=== PATIENT | female | born 1990 | race Caucasian/White ===

== ENCOUNTER 2018-06-18 08:10 | Outpatient (CLI) | payer MEDICAID, SELFPAY ==
[2018-06-18 08:41] LABS: HCT 37.1 % (36.0-46.0); HGB 12.5 g/dL (12.0-15.5); Mean Corp. HGB Concentration 33.7 g/dL (32.0-36.0); Mean Corpuscular Volume 92.1 fL (80-95); Mean Platelet Volume 10.3 fL (8.0-11.0); Platelet Count 238 x1000/uL (130-400); RBC 4.03 m/cumm (4.00-5.20); RBC Distribution Width 13.3 % (11.7-14.6); White Blood Cell Count 7.55 k/cumm (4.4-10.8)
[2018-06-18 08:51] LABS: Glucose,1 Hr (Glucola) 94 mg/dL (80-140)
== END 2018-06-18 08:30 ==
PROVIDERS: PCP Family Medicine; Visit Provider Midwife
DX: Z34.83 Encounter for supervision of other normal pregnancy, third trimester (principal); Z3A.28 28 weeks gestation of pregnancy
CPT/HCPCS: 36415; 82950; 85027

== ENCOUNTER 2018-08-14 11:17 | Outpatient (REF) | payer MEDICAID, SELFPAY | END 2018-08-14 11:37 | LOC: LBN 11:17 | PROVIDERS: PCP Family Medicine; Visit Provider Advanced Practice Midwife | DX: Z34.93 Encounter for supervision of normal pregnancy, unspecified, third trimester (principal); Z36.85 Encounter for antenatal screening for Streptococcus B | CPT/HCPCS: 87081 ==

== ENCOUNTER 2018-08-21 10:11 | Outpatient (CLI) | payer MEDICAID, SELFPAY | END 2018-08-21 11:20 | disposition home or self-care (01) | PROVIDERS: PCP Family Medicine; Visit Provider Advanced Practice Midwife | DX: O36.8130 Decreased fetal movements, third trimester, not applicable or unspecified (principal); Z3A.37 37 weeks gestation of pregnancy | CPT/HCPCS: 59025 ==

== ENCOUNTER 2018-09-02 19:34 | Outpatient (CLI) | payer MEDICAID, SELFPAY | END 2018-09-02 20:25 | disposition home or self-care (01) | LOC: BCD 19:37 | PROVIDERS: PCP Family Medicine; Visit Provider Nurse Practitioner | DX: O36.8130 Decreased fetal movements, third trimester, not applicable or unspecified (principal); Z3A.38 38 weeks gestation of pregnancy | CPT/HCPCS: 59025 ==

== ENCOUNTER 2018-09-11 23:07 | Inpatient (IN) | payer MEDICAID, SELFPAY ==
[2018-09-12 00:35] LABS: HCT 42.6 % (36.0-46.0); HGB 14.2 g/dL (12.0-15.5); Mean Corp. HGB Concentration 33.3 g/dL (32.0-36.0); Mean Corpuscular Hemoglobin 28.8 pg (27.0-33.0); Mean Corpuscular Volume 86.4 fL (80-95); Mean Platelet Volume 11.4 fL (8.0-11.0); Platelet Count 165 x1000/uL (130-400); RBC 4.93 m/cumm (4.00-5.20); RBC Distribution Width 16.6 % (11.7-14.6); White Blood Cell Count 9.48 k/cumm (4.4-10.8)
[2018-09-12] MEDS: Ondansetron 4 MG/2 ML VIAL 8 MG IVP (01:21)
[2018-09-12] MEDS: fentaNYL 100 MCG/2 ML VIAL 50 MCG IVP ×3 (03:10→06:24)
[2018-09-12] MEDS: Normal Saline Flush 10 ML SYR IVP ×4 (03:11→06:24)
[2018-09-12] MEDS: Lactated Ringers 500 ML IV (06:06)
[2018-09-12] MEDS: Hamamelis Leaf/Glycerin 100 EACH BOX PR (09:01)
[2018-09-12] MEDS: Docusate Sodium 100 MG CAP PO (09:01)
[2018-09-12] MEDS: Ibuprofen 600 MG TAB PO ×3 (09:18→23:25)
[2018-09-12] MEDS: Acetaminophen 325 MG TAB 650 MG PO ×3 (09:18→23:25)
[2018-09-13 07:05] LABS: HCT 37.5 % (36.0-46.0); HGB 12.1 g/dL (12.0-15.5); Mean Corp. HGB Concentration 32.3 g/dL (32.0-36.0); Mean Corpuscular Hemoglobin 28.3 pg (27.0-33.0); Mean Corpuscular Volume 87.6 fL (80-95); Mean Platelet Volume 11.7 fL (8.0-11.0); Platelet Count 169 x1000/uL (130-400); RBC 4.28 m/cumm (4.00-5.20); RBC Distribution Width 17.1 % (11.7-14.6); White Blood Cell Count 11.63 k/cumm (4.4-10.8)
== END 2018-09-13 12:35 | disposition home or self-care (01) | DRG 807 ==
PROVIDERS: Admitting Provider Advanced Practice Midwife; PCP Family Medicine; Visit Provider Advanced Practice Midwife
DX: O48.0 Post-term pregnancy (principal); Z37.0 Single live birth; Z3A.40 40 weeks gestation of pregnancy; O99.824 Streptococcus B carrier state complicating childbirth; O75.89 Other specified complications of labor and delivery; R11.10 Vomiting, unspecified; O77.0 Labor and delivery complicated by meconium in amniotic fluid
CPT/HCPCS: 36415; 85027; 86850; 86900; 86901; J2405; J2540; J3010; J3490

== ENCOUNTER 2018-11-13 10:50 | Outpatient (CLI) | payer MEDICAID, SELFPAY ==
[2018-11-13 11:28] LABS: HCT 40.3 % (36.0-46.0); HGB 13.4 g/dL (12.0-15.5); Mean Corp. HGB Concentration 33.3 g/dL (32.0-36.0); Mean Corpuscular Hemoglobin 28.6 pg (27.0-33.0); Mean Corpuscular Volume 85.9 fL (80-95); Mean Platelet Volume 10.1 fL (8.0-11.0); Platelet Count 315 x1000/uL (130-400); RBC 4.69 m/cumm (4.00-5.20); RBC Distribution Width 16.5 % (11.7-14.6); White Blood Cell Count 5.35 k/cumm (4.4-10.8)
[2018-11-13 12:04] LABS: BUN 12 mg/dL (7-18); CREATININE 0.64 mg/dL (0.55-1.02); Calcium 8.7 mg/dL (8.5-10.1); Chloride 106 mmol/L (98-107); Glucose 79 mg/dL (70-100); Potassium 4.3 mmol/L (3.5-5.1); Sodium 142 mmol/L (136-145)
[2018-11-13 12:35] LABS: HCG Qual (Serum) Negative
== END 2018-11-13 11:10 ==
PROVIDERS: PCP Family Medicine; Visit Provider Surgery
DX: Z30.2 Encounter for sterilization (principal); Z01.818 Encounter for other preprocedural examination
CPT/HCPCS: 36415; 80048; 85027; 86850; 86900; 86901; 84703

== ENCOUNTER 2018-11-21 06:04 | Day surgery (SDC) | payer MEDICAID, SELFPAY ==
[2018-11-21 06:16] VITALS: BP 107/69; PULSE 69; RESP 18; TEMP 35.6; O2SAT 96
[2018-11-21] MEDS: Lactated Ringers 1,000 ML 125 ML IV ×2 (06:45→08:27)
[2018-11-21] MEDS: Bupivacaine 0.25% Pres-Free 30 ML VIAL (07:50)
--- NOTE | 2018-11-21 08:04 | FALL_PTH ---
PATIENT: Jenna Smallwood LOC: [facility] U#:[id number] AGE/SX: 28/F ROOM: RE11/21/[address]: Cynthia Woodruff : 1990 BED: DIS: 11/21/2018 SPEC #: [id number] RECD: 11/21/18 12:46 STATUS: CHANDNI MIRANDA #: [id number] RUDY: 11/21/18 08:[address]: Cynthia Woodruff DEPT: Surgical Specimen RECD BY: Mariel Solano ENTERED: 11/21/18 12:47 SP TYPE: Fall OTHR DR: Ariel Adkins Tissues: 1 - FALLOPIAN TUBE (STERILIZATION) 2 - FALLOPIAN TUBE (STERILIZATION) Procedures: GROSS AND MICRO LEVEL 2 Comments: [id number]
[2018-11-21 08:33] VITALS: BP 112/81; PULSE 64; RESP 22; TEMP 36.6; O2SAT 96
[2018-11-21 08:38] VITALS: BP 114/75; PULSE 69; RESP 20; TEMP 36.6; O2SAT 96
[2018-11-21 08:43] VITALS: BP 102/67; PULSE 58; RESP 22; TEMP 36.6; O2SAT 97
[2018-11-21 08:57] VITALS: BP 117/72; PULSE 67; RESP 17; TEMP 36.6; O2SAT 96
--- NOTE | 2018-11-21 09:15 | W.PM.DSUDISC ---
Discharge Plan Disposition Patient Disposition: HOME Condition: Good Discharge Details Attending Provider: Cynthia Woodruff Primary Care Provider: Ariel Adkins Home Meds and New Rx's Prescriptions: No Action oxycodone-acetaminophen [Percocet] 5-325 mg tablet 1 tab PO Q6H MDD 4 PRN (Reason: pain) Qty: 5 RF: 0 with DHA-Folic Acid 1 EACH tablet,chewable 2 ea PO DAILY RF: 0 acetaminophen [Mapap Extra Strength] 500 MG tablet 1,000 mg PO PRN RF: 0 albuterol sulfate [ProAir HFA] 200 PUFF HFA aerosol inhaler 2 puff Inhalation Q6H PRN (Reason: Wheezing) Qty: 1 RF: 0 Discharge Instructions Stand Alone Forms: DSU Post Gynecology Surgery, DSU Post op Instructions Activity:: Activity as Tolerated Diet:: As Tolerated Discharge Orders Discharge Orders: Discharge Order (Routine); Ordered 11/21/18 Ordered By: Cynthia Woodruff Discharge Data Discharge Date/Time-TO BE ENTERED AT DEPARTURE: 11/21/18 10:19 DS: Diagnosis Discharge Diagnosis (1) Encounter for sterilization: Status: Acute
[2018-11-21 09:33] VITALS: BP 105/65; PULSE 70; RESP 16; TEMP 36; O2SAT 96
--- NOTE | 2018-11-25 18:46 | W.PM.OP ---
Date of service: 11/25/18 Time of Service: 18:46 Operative Note DATE OF PROCEDURE: 11/21/18 PRE-OP DIAGNOSIS: Multiparity desires permanent sterilization POST-OP DIAGNOSIS: same PROCEDURE: Laparoscopic bilateral salpingectomy SURGEON: Cynthia Woodruff ASSISTING SURGEON: Trevor Chamberlain ANESTHESIA: GETA ESTIMATED BLOOD LOSS: 0 PATHOLOGY: other (Bilateral fallopian tubes to pathology) COMPLICATIONS: None Patient was transported to: PACU Patient's condition: stable Indications: 28-year-old female who was counseled during her regarding contraceptive options. She declined all other methods other than permanent sterilization. Findings: Normal pelvis fallopian tubes normal appendix normal skin of upper abdomen Procedure Description: Patient was taken to the operating room where she was placed in the dorsal supine position and general endotracheal anesthesia was administered without difficulty. She was then prepped and draped in the usual sterile fashion. SCDs were in place and no antibiotics were administered. 2 cc of quarter percent Marcaine without epinephrine were used to infiltrate the umbilicus. A vertical skin incision was made with a scalpel at the umbilicus. A [place] clamp was used to grasp the umbilical ligament and tent it up. Another [place] was used to grasp the more caudal portion of the umbilical ligament and the umbilical ligament was transected with curved Jackson scissors and the abdomen entered bluntly. The rectus fascia was held with 2-0 Vicryl sutures which were used to secure the Williamson trocar and sleeve which were placed through the umbilical incision. Pneumoperitoneum was achieved using carbon dioxide gas. Patient was placed in Trendelenburg and under direct visualization 2 5 mm ports were placed in the right and left lower quadrants under direct visualization. The sites were infiltrated with quarter percent Marcaine before the incision was made with a scalpel. The bowels were swept away from the pelvis and the right fallopian tube was grasped followed out to its fimbriated end and the mesosalpinx was then sequentially clamped cauterized and transected to the level of the right uterine cornua. The fallopian tube at the right uterine cornua was then clamped cauterized and transected and the right fallopian tube was delivered through the 10 mm port and passed off of the operative field. A similar technique was carried out on the contralateral fallopian tube. The left fallopian tube was successfully transected from its attachments and delivered through the 10 mm port. Both pedicles were hemostatic at the completion of the procedure. Under direct visualization the 5 mm lower ports were removed the pneumoperitoneum reduced and the Williamson removed. Rectus fascia was reapproximated with 2 more interrupted sutures of 0 Vicryl for a excellent closure of the rectus fascia. The skin of all port sites was reapproximated with a subcuticular closure of 4-0 Monocryl followed by skin glue. All sponge lap needle counts correct x2 patient was awakened extubated and transported to recovery area in stable condition.
--- NOTE | 2018-11-25 18:55 | ROE_ITS ---
Date of service: 11/25/18 Time of Service: 18:46 Operative Note DATE OF PROCEDURE: 11/21/18 PRE-OP DIAGNOSIS: Multiparity desires permanent sterilization POST-OP DIAGNOSIS: same PROCEDURE: Laparoscopic bilateral salpingectomy SURGEON: Cynthia Woodruff ASSISTING SURGEON: Trevor Chamberlain ANESTHESIA: GETA ESTIMATED BLOOD LOSS: 0 PATHOLOGY: other (Bilateral fallopian tubes to pathology) COMPLICATIONS: None Patient was transported to: PACU Patient's condition: stable Indications: 28-year-old female who was counseled during her regarding contraceptive options. She declined all other methods other than permanent sterilization. Findings: Normal pelvis fallopian tubes normal appendix normal skin of upper abdomen Procedure Description: Patient was taken to the operating room where she was placed in the dorsal supine position and general endotracheal anesthesia was adm inistered without difficulty. She was then prepped and draped in the usual sterile fashion. SCDs were in place and no antibiotics were administered. 2 cc of quarter percent Marcaine without epinephrine were used to infiltrate the umbilicus. A vertical skin incision was made with a scalpel at the umbilicus. A [place] clamp was used to grasp the umbilical ligament and tent it up. Another [place] was used to grasp the more caudal portion of the umbilical ligament and the umbilical ligament was transected with curved Jackson scissors and the abdomen entered bluntly. The rectus fascia was held with 2-0 Vicryl sutures which were used to secure the Williamson trocar and sleeve which were placed through the umbilical incision. Pneumoperitoneum was achieved using carbon dioxide gas. Patient was placed in Trendelenburg and under direct visualization 2 5 mm ports were placed in the right and left lower quadrants under direct visualization. The sites were infiltrated with quarter percent Marcaine before the incision was made with a scalpel. The bowels were swept away from the pelvis and the right fallopian tube was grasped followed out to its fimbriated end and the mesosalpinx was then sequent ially clamped cauterized and transected to the level of the right uterine cornua. The fallopian tube at the right uterine cornua was then clamped cauterized and transected and the right fallopian tube was delivered through the 10 mm port and passed off of the operative field. A similar technique was carried out on the contralateral fallopian tube. The left fallopian tube was successfully transected from its attachments and delivered through the 10 mm port. Both pedicles were hemostatic at the completion of the procedure. Under direct visualization the 5 mm lower ports were removed the pneumoperitoneum reduced and the Williamson removed. Rectus fascia was reapproximated with 2 more interrupted sutures of 0 Vicryl for a excellent closure of the rectus fascia. The skin of all port sites was reapproximated with a subcuticular closure of 4-0 Monocryl followed by skin glue. All sponge lap needle counts correct x2 patient was awakened extubated and transported to recovery area in stable condition.
== END 2018-11-21 10:19 | disposition home or self-care (01) ==
PROVIDERS: PCP Family Medicine; Visit Provider Obstetrics & Gynecology Gynecology
PROC: (CPT 58661; principal; 2018-11-21 07:30)
DX: Z30.2 Encounter for sterilization (principal); N94.89 Other specified conditions associated with female genital organs and menstrual cycle
CPT/HCPCS: 58661; 81025; 86850; 86900; 86901; 88302; J1100; J1885; J2250; J2405; J3010

== ENCOUNTER 2022-11-25 15:14 | Outpatient (REF) | payer MEDICAID, SELFPAY ==
--- NOTE | 2022-11-25 10:30 | PAPFT_PTH ---
PATIENT: Jenna Smallwood [facility] U#:[id number] AGE/SX: 32/F ROOM: RE11/25/[address]: GENO VELÁQSUEZ : 1990 BED: DIS: 11/25/2022 SPEC #: [id number] RECD: 11/25/22 18:46 STATUS: CHANDNI REQ #: [id number] RUDY: 11/25/22 10:[address]: Geno Velásquez DEPT: [facility] Cytology RECD BY: Mariel Solano ENTERED: 11/25/22 18:46 SP TYPE: PAPFT OTHR DR: Abby Birch Tissues: 1 - CX/ENDOCX FOR PAP SMEARS Procedures: PAP THIN PREP/UVM Screening HPV DNA PROBE Comments: [id number] (CHLAMYDIA/GC)
[2022-11-25 18:24] LABS: Abs Immature Grans 0.01 10^3/uL (0.0-0.06); Absolute Basophil Count 0.03 10^3/uL (0.0-0.2); Absolute Eosinophil Count 0.08 10^3/uL (0.0-0.7); Absolute Lymphocyte Count 1.82 10^3/uL (1.2-3.4); Absolute Monocyte Count 0.38 10^3/uL (0.1-0.8); Basophils % 0.5; Eosinophils % 1.4; HCT 41.9 % (36.0-46.0); HGB 13.5 g/dL (11.2-15.7); Immature Grans % 0.2; Lymphocytes % 30.7; MCH 29.2 pg (27.0-33.0); MCHC 32.2 % (32.0-36.0); MCV 91 fL (80-95); MPV 10.5 fL (8.0-11.0); Monocytes % 6.4; Neutrophils % 60.8; Platelet Count 351 10^3/uL (130-400); RBC 4.63 10^6/uL (3.93-5.22); RDW 13.2 % (11.7-14.6); RDW-SD 44.4 fL; WBC 5.92 10^3/uL (4.4-10.8)
[2022-11-25 18:30] LABS: Iron 70 ug/dL (50-170); Total Iron Binding Capacity 293 ug/dL (250-450); Transferrin Sat 24 % (15-50)
[2022-11-25 18:33] LABS: ALT 28 U/L (14-59); AST 20 U/L (15-37); Albumin 3.8 g/dL (3.4-5.0); Alkaline Phosphatase 76 U/L (46-116); Anion Gap 7.2 mmol/L (3-11); BUN 14 mg/dL (7-18); Bilirubin, Total 0.2 mg/dL (0.2-1.0); CO2 28.8 mmol/L (21.0-32.0); CREATININE 0.5 mg/dL (0.55-1.02); Calcium 9.4 mg/dL (8.5-10.1); Chloride 106 mmol/L (98-107); Estimated GFR 126.93 (mL/min/1.73m2); Glucose 83 mg/dL (74-106); Potassium 4.3 mmol/L (3.5-5.1); Sodium 142 mmol/L (136-145)
[2022-11-25 18:43] LABS: Hemoglobin A1C 4.9 % (<5.7)
[2022-11-28 17:11] LABS: Chlamydia Result Negative (Negative); GC Result Negative (Negative)
== END 2022-11-25 15:15 | disposition home or self-care (01) ==
LOC: NCHCN 15:14
PROVIDERS: PCP Nurse Practitioner; Visit Provider Nurse Practitioner Family
DX: R53.83 Other fatigue (principal); Z13.1 Encounter for screening for diabetes mellitus; N89.8 Other specified noninflammatory disorders of vagina; Z12.4 Encounter for screening for malignant neoplasm of cervix; Z11.3 Encounter for screening for infections with a predominantly sexual mode of transmission; Z11.51 Encounter for screening for human papillomavirus (HPV); Z00.00 Encounter for general adult medical examination without abnormal findings; R79.89 Other specified abnormal findings of blood chemistry
CPT/HCPCS: 80053; 87491; 87591; 88142; 83036; 83540; 83550; 85025; 87480; 87510; 87624; 87660

== ENCOUNTER 2023-05-18 18:14 | Outpatient (REF) | payer MEDICAID, SELFPAY ==
[2023-05-20 14:46] LABS: Chlamydia Result Negative (Negative); GC Result Negative (Negative)
== END 2023-05-18 18:15 | disposition home or self-care (01) ==
LOC: NCHCN 18:14
PROVIDERS: PCP Nurse Practitioner; Visit Provider Nurse Practitioner Family
DX: N89.8 Other specified noninflammatory disorders of vagina (principal); A59.01 Trichomonal vulvovaginitis
CPT/HCPCS: 87491; 87591; 87480; 87510; 87660

== ENCOUNTER 2024-06-11 22:27 | Outpatient (REF) | payer MEDICAID, SELFPAY ==
[2024-06-11 19:53] LABS: Abs Immature Grans 0.01 10^3/uL (0.0-0.06); Absolute Basophil Count 0.01 10^3/uL (0.0-0.2); Absolute Eosinophil Count 0.07 10^3/uL (0.0-0.7); Absolute Lymphocyte Count 0.99 10^3/uL (1.2-3.4); Absolute Monocyte Count 0.47 10^3/uL (0.1-0.8); Absolute Neutrophil Count 2.95 10^3/uL (1.2-6.7); Basophils % 0.2 %; Eosinophils % 1.6 %; HCT 42.2 % (36.0-46.0); HGB 14.1 g/dL (11.2-15.7); Immature Grans % 0.2 %; MCH 29.8 pg (27.0-33.0); MCHC 33.4 % (32.0-36.0); MCV 89 fL (80-95); MPV 10.9 fL (8.0-11.0); Monocytes % 10.4 %; Neutrophils % 65.6 %; Platelet Count 284 10^3/uL (130-400); RBC 4.73 10^6/uL (3.93-5.22); RDW 12.6 % (11.7-14.6); RDW-SD 41.5 fL
[2024-06-11 20:30] LABS: Iron 19 ug/dL (50-170); Total Iron Binding Capacity 302 ug/dL (250-450); Transferrin Sat 6 % (15-50)
[2024-06-11 20:41] LABS: ALT 28 U/L (14-59); AST 24 U/L (15-37); Albumin 3.8 g/dL (3.4-5.0); Alkaline Phosphatase 67 U/L (46-116); Anion Gap 11.7 mmol/L (3-11); BUN 8 mg/dL (7-18); Bilirubin, Total 0.47 mg/dL (0.2-1.0); CO2 25.3 mmol/L (21.0-32.0); CREATININE 0.8 mg/dL (0.55-1.02); Calcium 8.7 mg/dL (8.5-10.1); Chloride 102 mmol/L (98-107); Estimated GFR 98.48 (mL/min/1.73m2); Glucose 90 mg/dL (74-106); Potassium 3.6 mmol/L (3.5-5.1); Sodium 139 mmol/L (136-145); TSH (W/Ref FT4) 1.46 uIU/mL (0.36-3.74); Total Protein 7.4 g/dL (6.4-8.2); Vitamin B12 500 pg/mL (193-986); Vitamin D 25 Total 17.4 ng/mL (30-100)
[2024-06-11 21:40] LABS: Hemoglobin A1C 5.1 % (<5.7)
--- OUTSIDE RECORDS SUMMARY | 2024-06-11 22:30 | XMS_ITS | Encounter Summary ---
Author Organization [facility] Address [address] [place] [address] Care Team Providers Care Metal Bonder Name Role Phone Pablo Solorio MD Primary Care Provider Meka harrington Encounter Details Date Type Department Care Team (Latest Contact Info) Description 11/21/2018 17:12 EST - 11/21/2018 23:59 EST Hospital Encounter [address] [address] Unknown, Provider, Discharge Disposition: Home or Self Care Social History Tobacco Use Types Packs/Day Years Used Date Smoking Tobacco: Never Assessed Sex and Gender Information Value Date Recorded Sex Assigned at Not on file Gender Identity Not on file Sexual Orientation Not on file documented as of this encounter Functional Status Cognitive Status Response Date of Assessm ent Because of a physical, menta l, or emotional condition, do you have serious difficulty concentrating, remembering, or making decisions? (5 years old or older) Yes 12/01/2010 documented as of this encounter Medications at Time of Discharge Medication Sig Dispensed Refills Start Date End Date acetaminophen (TYLENOL) 650 mg tablet Take 1 Tablet by mouth every 6 hours. 12/05/2010 documented as of this encounter Discharge Disposition Disposition Code Departure Means Destination Home or Self Skilled Nursing documented in this encounter Plan of Treatment Upcoming Encounters Date Type Department Care Team (Late st Contact Info) Description 07/02/2024 11:15 EDT Office Visit [facility] Neurology - [address] [address] Maribel Giraldo MD 1 [facility], [address] [place] [phone] documented as of this encounter Visit Diagnoses Not on filedocumented in this encounter Care Teams Metal Bonder Relationship Specialty Start Date End Date Pablo Solorio MD PCP - General 02/13/09 12/23/22 documented as of this encounter
--- OUTSIDE RECORDS SUMMARY | 2024-06-11 22:30 | XMS_ITS | Encounter Summary ---
Author Organization [facility] Address [address] [place] [address] Care Team Providers Care Lab Intern Name Role Phone Pablo Solorio MD Primary Care Provider Geno Hutchins Primary Care Provider [phone] Encounter Details Date Type Department Care Team (Late Contact Info) Description 11/25/[address] [facility] Pathology & [facility] - [facility] [address] [place], [place] [address] Outr Resulting Lab, Provider Social History Tobacco Use Types Packs/Day Years Used Date Smoking Tobacco: Never Assessed Interpersonal Safety Answer Date Record ed Physically Hurt Never 04/26/2020 Verbally Threaten Not on file 04/26/2020 Sex and Gender Information Value Date Recorded [...] Yes 12/01/2010 documented as of this encounter Plan of Treatment Upcoming Encounters Date Type Department Care Team (Late Contact Info) Description 07/02/2024 11:[address] [facility] Neurology - S [address] [id number] Maribel Giraldo MD [address] [place] [address] [address] [place] [address] documented as of this encounter Procedures Procedure Name Priority Date/Time Associated Diagnosis Comments CHLAMYDIA/N. GONORRHOEAE AMPLIFIED NUCLEIC ACID, THINPREP Routine 11/25/2022 10:30 EST documented in this encounter Results * CHLAMYDIA/N. GONORRHOEAE AMPLIFIED RNA, THINPREP (11/25/2022 10:30 EST) Neisseria gonorrhoeae Result Negative Negative 11/28/2022 17:06 EST [facility] Chlamydia trachomatis Result Negative Negative 11/28/2022 17:06 EST [facility] Papanicolaou smear specimen (specimen) CERVIX UTERI STRUCTURE / Unknown 11/25/2022 10:30 EST 11/28/2022 9:55 EST Provider Outr Resulting Lab MICROBIOLOGY - GENERAL ORDERABLES Performing Organization Address City/State/[facility] Co de Phone Number [facility] [address] [place] [address] documented in this encounter Visit Diagnoses Not on filedocumented in this encounter Care Teams Lab Intern Relationship Specialty Start Date End Date Pablo Solorio MD PCP - General 02/13/09 12/23/22 Geno Velásquez FNP [facility] [address] [place] [address] PCP - General Family Medicine - Primary Care 12/24/22 documented as of this encounter
--- OUTSIDE RECORDS SUMMARY | 2024-06-11 22:30 | XMS_ITS | Encounter Summary ---
Author Organization [facility] Address [address] [place] [address] Care Team Providers Care Woodworking Bench Carpenter Name Role Phone Geno Velásquez ASPHALT SCREED OPERATOR Primary Care Provider [phone] Encounter Details Date Type Department Care Team (Late Contact Info) Description 05/19/2023 Lab Requisition [facility] Pathology & Laboratory Medicine - [facility] [address] [place], [place] [address] Outr Resulting Lab, Provider Social History Tobacco Use Types Packs/Day Years Used Date Smoking Tobacco: Never Smokeless Tobacco: Never Alcohol Use Standard Drinks/Week Comments Not Currently 0 (1 standard drink = 0.6 oz pur e alcohol) Interpersonal Safety Answer Date Record ed Physically [...] Upcoming Encounters Date Type Department Care Team ([facility] Contact Info) Description 07/02/2024 11:15 EDT Office Visit [facility] Neurology - S [address] [address] Maribel Giraldo MD 1 [facility], [address] [place] [address] documented as of this encounter Procedures Procedure Name Priority Date/Time Associated Diagnosis Comments CHLAMYDIA/N. GONORRHOEAE AMPLIFIED NUCLEIC ACID Routine 05/18/2023 15:05 EDT documented in this encounter Results * CHLAMYDIA/N. GONORRHOEAE AMPLIFIED RNA (05/18/2023 15:05 EDT) Neisseria gonorrhoeae Result Negative Negative 05/20/2023 14:41 EDT [facility] Chlamydia trachomatis Result Negative Negative 05/20/2023 14:41 EDT [facility] Urine URINE / Unknown 05/18/2023 1 5:05 EDT 05/19/2023 18:37 EDT Narrative [facility] - 05/20/2023 14:41 EDT A first catch urine specimen is acceptable for detection of Gonorrhea and Chlamydia, but might detect up to 10% fewer infections when compared with vaginal and endocervical swab samples. Provider Outr Resulting Lab MICROBIOLOGY - GENERAL ORDERABLES [facility] [address] [place] [address] documented in this encounter Visit Diagnoses Not on filedocumented in this encounter Care Teams Woodworking Bench Carpenter Relationship Specialty Start Date End Date Geno Velásquez FNP [address] [place] [phone] PCP - General Family Medicine - Primary Care 12/24/22 documented as of this encounter
--- OUTSIDE RECORDS SUMMARY | 2024-06-11 22:30 | XMS_ITS | Encounter Summary ---
Author Organization [facility] Address [address] [place] [address] Care Team Providers Care Hooker Operator Name Role Phone Geno Velásquez PRINT OPERATOR Primary Care Provider [phone] Encounter Details Date Type Department Care Team (Latest Contact Info) Description 04/11/2024 Specialty Pharmacy [facility] [address] [place] [phone] Ney Granados [facility] Refill Coordination Outreach for Headache Social History Tobacco Use Types Packs/Day Years [...] Info) Description 07/02/2024 11:15 EDT Office Visit [facility] Neurology - S [address] [phone] Maribel Giraldo MD [address] [place] [address] [address] [place] [phone] documented as of this encounter Visit Diagnoses Not on filedocumented in this encounter Care Teams Hooker Operator Relationship Specialty Start Date End Date Geno Velásquez FNP [address] [place] [phone] PCP - General Family Medicine - Primary Care 12/24/22 documented as of this encounter
--- OUTSIDE RECORDS SUMMARY | 2024-06-11 22:30 | XMS_ITS | Encounter Summary ---
Author Organization [facility] Address [address] [place] [address] Care Team Providers Care Home Health Lpn Name Role Phone Geno Velásquez RANDY Primary Care Provider Reason for Visit * Reason Onset Date Comments Prior Auth, Medication 09/05/2023 Emgality Encounter Details Date Type Department Care Team (Late st Contact Info) Description 09/05/2023 Telephone [facility] Neurology - S [address] [address] Maribel Giraldo MD [address] [place] [address], [address] [place] [address] Prior Auth, Medication (Emgality) Social History Tobacco Use Types Packs/Day Years [...] Yes 12/01/2010 documented as of this encounter Ordered Prescriptions Prescription Sig Dispensed Refills Start Date End Da te galcanezumab-GNLM (EMGALITY PEN) 120 mg/mL injection Inject 120 mg into the skin every 28 days. 3 mL 3 09/06/2023 galcanezumab-GNLM (EMGALITY PEN) 120 mg/mL injection Inject 240 mg into the skin Once for 1 dose. 2 mL 09/06/2023 documented in this encounter Miscellaneous Notes * Telephone Encounter - Memo Bianchi - 09/05/2023 0129 EST Prior Authorization Approval Medication: Emgality 240mg x1 then 120mg q28 days Insurance: VTM Insurance Type: [place] Medicaid Approval Dates: 09/05/2023 - 03/06/2024 Authorization Number: [id number] Benefits Information: Required Pharmacy: [facility] able to fill?: YES Additional Info/Other Notes: Prior Authorization Submission Process - Routine New Medication: Emgality 240mg x1 then 120mg q28 days Insurance: VTM Insurance Type: [place] Medicaid Date PA Request Received: 08/22/2023 [place] Submission Date: 09/06/2023 Faxed: [phone] Notes: Submitted by: Memo Phone: [phone] documented in this encounter Plan of Treatment Upcoming Encounters Date Type Department Care Team (Late st Contact Info) Description 07/02/2024 11:15 EDT Office Visit [facility] Neurology - S [address] [address] Maribel Giraldo MD [address] [place] [address], [address] [place] [address] documented as of this encounter Visit Diagnoses Not on filedocumented in this encounter Care Teams Home Health Lpn Relationship Specialty Start Date End Date Geno Velásquez FNP [address] [place] [phone] PCP - General Family Medicine - Primary Care 12/24/22 documented as of this encounter
--- OUTSIDE RECORDS SUMMARY | 2024-06-11 22:30 | XMS_ITS | Encounter Summary ---
Author Organization [facility] Address [address] [place] [address] Care Team Providers Care Grizzlyman Name Role Phone Geno Velásquez RANDY Primary Care Provider [phone] Encounter Details Date Type Department Care Team (Latest Contact Info) Description 12/25/2023 Specialty Pharmacy [facility] [address] [place] [phone] Marie Renteria RPH Refill Coordination Outreach for Headache, Clinical Follow-up (2x annually) for Headache Social History Tobacco Use Types [...] Info) Description 07/02/2024 11:15 EDT Office Visit [facility] Neurology - [address] [address] Maribel Giraldo MD 1 [facility], [address] [place] [phone] documented as of this encounter Visit Diagnoses Not on filedocumented in this encounter Care Teams Grizzlyman Relationship Specialty Start Date End Date Geno Velásquez FNP [address] [place] [phone] PCP - General Family Medicine - Primary Care 12/24/22 documented as of this encounter
--- OUTSIDE RECORDS SUMMARY | 2024-06-11 22:30 | XMS_ITS | Encounter Summary ---
Author Organization [facility] Address [address] [place] [address] Care Team Providers Care Bridge Construction Inspector Name Role Phone Geno Velásquez ASSOCIATE PROFESSOR OF FORESTRY Primary Care Provider [phone] Reason for Visit * Reason Comments Follow-up Encounter Details Date Type Department Care Team (Late st Contact Info) Description 01/15/2024 10:15 EDT Office Visit [facility] Neurology - S [address] [id number] Maribel Giraldo MD [address] [place] [address], Level 2 [place] [address] Intractable chronic migraine with aura and without status migrainosus (Primary Dx) Social History Tobacco Use Types Packs/Day Years [...] on file documented as of this encounter Last Filed Vital Signs Vital Sign Reading Time Taken Comments Blood Pressure 126/80 01/15/2024 1004 EDT Pulse 75 01/15/2024 1004 EDT Temperature - - Respiratory Rate 14 01/15/2024 1004 EDT Oxygen Saturation 100% 01/15/2024 1004 EDT Inhaled Oxygen Concentration - - Weight - - Height - - Body Mass Index - - documented in this encounter Functional Status Cognitive Status Response Date of Assessm ent Because of a physical, menta l, or emotional condition, do you have serious difficulty concentrating, remembering, or making decisions? (5 years old or older) Yes 12/01/2010 documented as of this encounter Progress Notes * Christi Davis MD - 01/15/2024 1015 EDT Neurology Follow-Up Note 01/15/24 HPI: Jenna Smallwood is a 33 y.o. left-hand dominant female seen today for follow-up of History of chiari I malformation s/p decompression in 2010. Chronic migraine with visual aura. Contributions from poor sleep and neck pain. Since the last visit: She is accompanied by her family today. She reports interval improvement in headache frequency and severity - has been using Emgality since end of August (last dose was on 01/01 = 5th dose). She has been experiencing incremental improvements from dose to dose - currently experiencing a headache twice per week (including all types of headaches, including migraine). The typical severity is around a4/10, which is improved from previously. She denies any side effects to Emgality, even no local site injection reactions. She rarely uses Relpax, which has been working much better than previous ones. She uses ibuprofen once per week for either headache or other pain. She has been working with PT, including stretching exercises, manipulations, and dry needling. She denies other health issues or medication changes. Headache frequency: Total # of headache days per month: 8 (26-27 at first visit) # of severe headache days per month: 1-2 (22 at first visit) Headache duration: hours to days (all day at first visit) Missed school or work: can't miss Current headache regimen: Abortive: eletriptan 40 mg Preventive: amitriptyline 50 mg nightly, Emgality every 28 days (5th dose on 01/01) Nonpharmacologic therapies: PT including stretching and dry needling Past/Failed therapies: Acute medications: ibuprofen, tylenol, tramadol (mild effective). Sumatriptan. Preventive medications: topamax pre-surgery (paresthesias), amitriptyline, Nonpharmacologic therapies: none Headache Presentation: She started having headaches at age 11. She was found to have a Chiari I malformation and had a suboccipital decompression in 2010. Her headaches improved for a time but started to recur about 5 years after surgery. They've been getting worse over time. She is now having headaches near daily, with only 3-4 days/month headache free. She has not been able to identify any triggers. There is no menstrual relationship. Headache is not provoked by coughing, straining, or valsalva and this does not provoke vision changes. There is no positional change inheadache. The pain location may be at the base of her skull, may be midline, bitemporal, or holocephalic. Sometimes the pain radiates down into her shoulder. Pain is sharp, stabbing, throbbing in character, reaches 10/10 at worst and 8/10 typically. Pain is worsened by activity and sometimes is better with rest. There is associated photophobia, phonophobia, nausea, cutaneous allodynia, and she feels like she has trouble opening jars. She has a visual aura of block spots in her vision, or half of her vision may be lost. This can last from 1 hour to all day. She has visual symptoms about 10-12 days/month. Headache contributors and health habits: Head trauma/concussion: None Back/neck/other pain: Neck pain as above Sinus/allergy: Environmental and seasonal allergies, asthma Dental/TMJ: None Psychological History: None Fluid intake: 64+ oz/day Caffeine intake: 8 oz/day Alcohol intake: None Exercise: 4 days/week, walking Sleep: 3-6 hours/night. Trouble sleeping due to pain. 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 Feels supported and safe at home Family headache history: father and siblings with migraine No past medical history on file. Patient Active Problem List Diagnosis Date Noted Migraine 09/06/2023 Active asthma Outpatient Medications Marked as Taking for the 01/15/24 encounter (Office Visit) with Maribel Giraldo MD Medication Sig acetaminophen (TYLENOL) 650 mg tablet Take 1 Tablet by mouth every 6 hours. albuterol 90 mcg/actuation inhaler INHALE ONE TO TWO PUFFS BY MOUTH EVERY 4 HOURS NEEDED amitriptyline (ELAVIL) 10 mg tablet Take 5 Tablets by mouth at bedtime. Start amitriptyline 5 mg (1/2 tab) nightly for one week. Increase to 10 mg (1 tab) nightly for one week, then increase by 10 mg(1 tab) weekly to target does 50 mg (5 tabs) nightly. eletriptan (RELPAX) 40 mg tablet At ONSET of severe headache. You may repeat a dose in 2 hours. Themaximum is 2 tabs or 80mg in 24 hours. galcanezumab-GNLM (EMGALITY PEN) 120 mg/mL injection Inject 240 mg into the skin Once for 1 dose. galcanezumab-GNLM (EMGALITY PEN) 120 mg/mL injection Inject 120 mg into the skin every 28 days. omeprazole (PRILOSEC) 20 mg capsule ondansetron (ZOFRAN) 4 mg tablet Take 1 Tablet by mouth 2 times daily. May take 2 tablets if needed. Allergies Allergen Reactions Aspirin Hives and Rash Banana Watermelon Hives Vomiting also, both watermelon and bananas Social History Socioeconomic History Marital status: Single Tobacco Use Smoking status: Never Smokeless tobacco: Never Substance and Sexual Activity Alcohol use: Not Currently Drug use: Not Currently ROS: Review of Systems: A 10 point ROS was negative except as noted above. Physical Exam: Patient Vitals for the past 24 hrs: BP Pulse Resp SpO2 01/15/24 1004 126/80 75 14 100 % Exam: She is alert and oriented. Speech is clear and fluent. Visual smith are intact. EOMMs are intact. Face is symmetric at rest upon activation. Tone is normal. There is no drift of the out-stretched arms or legs. Sensation is intact to light touch in all extremities. No dysmetria on finger to nose testing and heel to moura testing. Finger tapping is symmetrical. Gait is symmetric - able to stand on toes and heels. Imaging, Labs, Studies: Last head imaging was presurgical in 2010. MRI brain without contrast done 05/25/2023 at [facility] (no images available for my review): IMPRESSION 1. Post suboccipital decompression changes without crowding at the foramen magnum. Otherwise unremarkable exam. ASSESSMENT/PLAN: Assessment: History of chiari I malformation s/p decompression in 2010. Possible occipital neuralgia and possible cervical myofascial pain Chronic migraine with visual aura. Contributions from poor sleep. Plan: Acute treatment: - At onset of severe headache take Relpax (eletriptan) 40mg. May repeat a dose in 2 hours. The maximum is 2 tabs or 80mg in 24 hours. - Continue ondansetron (zofran) as needed for nausea Prevention: - Continue Emgality every 28 days as already being done (5th dose on 01/01) - Continue amitriptyline 50 mg nightly Health habits/nonpharmacologic treatments: - Continue PT - We might consider occipital nerve blocks and trigger point injections in the future if necessary Headache Calenders: - Encouraged Jenna to maintain a headache diary to be reviewed at the next follow-up visit. Follow up in 6 months or earlier if needed. Christi Davis MD Neurology Resident, PGY-3 Attending attestation: I saw and examined the patient, and discussed the assessment and plan, with Dr. Davis. I agree withthe note as above, edited as needed by me. Maribel Giraldo MD documented in this encounter Plan of Treatment Upcoming Encounters Date Type Department Care Team (Late st Contact Info) Description 07/02/2024 11:15 EDT Office Visit [facility] Neurology - S [address] [phone] Maribel Giraldo MD [address] [place] [address], [address] [place] [address] documented as of this encounter Visit Diagnoses Diagnosis Intractable chronic migraine with aura and without status migrainosus- Primary documented in this encounter Care Teams Bridge Construction Inspector Relationship Specialty Start Date End Date Geno Velásquez FNP Lauren ROWAN [address] [place] [phone] PCP - General Family Medicine - Primary Care 4/1/23 documented as of this encounter
--- OUTSIDE RECORDS SUMMARY | 2024-06-11 22:30 | XMS_ITS | Encounter Summary ---
Author Organization [facility] Address [address] [place] [address] Care Team Providers Care Fish Pitcher Name Role Phone Geno Velásquez RANDY Primary Care Provider [phone] Reason for Visit * Reason Onset Date Comments Prior Auth, Medication 02/16/2024 Emgality Encounter Details Date Type Department Care Team (Late st Contact Info) Description 02/16/2024 Telephone [facility] Neurology - S [address] [address] Maribel Giraldo MD [address] [place] [address], [address] [place] [address] Prior Auth, Medication (Emgality) Social [...] Yes 12/01/2010 documented as of this encounter Miscellaneous Notes * Telephone Encounter - Stephanie Waldron 02/16/2024 1622 EDT Prior Authorization Submission Process - Routine Re-Auth Medication: Emgality 120mg pen q28d [place] Insurance [place] Date [place] Request Received: 02/16/2024 [place] Submission Date: 02/16/2024 Faxed: [phone] Notes: Submitted by: Stephanie Hines Phone: [phone] [facility] Downtime Documentation Medication Name: Emgality Primary Payer[place] Secondary Payer: Payer Affected: Primary Payer Eligibility Verification Date Completion: 02/16/2024 Eligibility Verification Result: Eligiblity PDL/Formulary Review Completed on: 02/16/2024 PDL/Formulary Review Result: Meets Referral Entered:Yes documented in this encounter Plan of Treatment Upcoming Encounters Date Type Department Care Team (Late st Contact Info) Description 07/02/2024 11:15 EDT Office Visit [facility] Neurology - S [address] [address] Maribel Giraldo MD 1 [facility] 2 [place] [address] documented as of this encounter Visit Diagnoses Not on filedocumented in this encounter Care Teams Fish Pitcher Relationship Specialty Start Date End Date Geno Velásquez FNP Lauren ROWAN [address] [place] [phone] PCP - General Family Medicine - Primary Care 12/24/22 documented as of this encounter
--- OUTSIDE RECORDS SUMMARY | 2024-06-11 22:30 | XMS_ITS | Encounter Summary ---
Author Organization [facility] Address [address] [place] [address] Care Team Providers Care Instructional Aide Name Role Phone Jonathan Vazquez MD Primary Care Provider Meka harrington Encounter Details Date Type Department Care Team (Late Contact Info) Description 05/23/[address] [facility]- [facility] [phone] Radha Boucher, [facility] [address] [place] [phone] Social History Tobacco Use Types Packs/Day Years [...] Info) Description 07/02/2024 11:15 EDT Office Visit [facility] Neurology - [address] [phone] Maribel Giraldo MD [address] [place] [address], Level 2 [place] [phone] documented as of this encounter Procedures Procedure Name Priority Date/Time Associated Diagnosis Comments PAP TEST- RESULT ONLY Routine 05/23/2016 0:00 EDT documented in this encounter Results * PAP TEST- RESULT ONLY (05/23/2016 0:00 EDT) Pathology Report: CYTOPATHOLOGY REPORT Reports generated via electronic interface contain original data; however they are lacking the format of the original report. Caution should be taken when reading/interpreti ng unformatted reports. Name: ? JEAN CARLOS SMALLWOOD ? Accession #: ? [id number] : ? 1990 (Age: 26) ??F ?Collect Date: ? 05/23/2016 Location: ? [facility] ? Receive Date: ? 05/24/2016 Provider: ?RADHA BOUCHER [facility] Copy to: ?JONATHAN VAZQUEZ MD ? Specimen/Source: ?Pap Test, Cervix/Endocervix, ThinPrep Imaging System with manual evaluation Last Menstrual Period: ? Hormonal/Contracep tive Status: ? Intrauterine device: Mirena ? SPECIMEN ADEQUACY ? Satisfactory for Evaluation - transformation zone component present - scant squamous epithelial component secondary to excessive inflammation GENERAL CATEGORIZATION ? Negative for Intraepithelial Lesion or Malignancy INTERPRETATION ? Reactive cellular changes associated with inflammation present (includes repair). Shift in anna present suggestive of bacterial vaginosis. ? Document reviewed and electronically signed by: ? ISSAC SHANNON MD ? Report Date: ??05/27/2016 09:44 End of Report [facility] 05/23/2016 05/24/2016 Radha Boucher TUBE BENDING MACHINE OPERATOR PATHOLOGY ORDERABLES [facility] [address] [place] [address] documented in this encounter Visit Diagnoses Not on filedocumented in this encounter Care Teams Instructional Aide Relationship Specialty Start Date End Date Jonathan Vazquez MD PCP - General 02/13/09 12/23/22 documented as of this encounter
--- OUTSIDE RECORDS SUMMARY | 2024-06-11 22:30 | XMS_ITS | Encounter Summary ---
Author Organization [facility] Address [address] [place] [address] Care Team Providers Care Manager Placement Name Role Phone Geno Velásquez ANNEALER Primary Care Provider [phone] Encounter Details Date Type Department Care Team (Latest Contact Info) Description 02/14/2024 Specialty Pharmacy [facility] [address] [place] [phone] Ney Granados RPH Refill Coordination Outreach for Headache, Started Clinical Follow-up (2x annually) for Headache Social [...] as of this encounter Progress Notes * Robin Beal - 02/14/2024 1150 EDT Specialty Pharmacy Documentation Medication: Emgality [facility] Reason for Encounter: refill Notes: [facility]FT[facility] setting outreach closer to due date. Follow up date: 02/19 Follow up reason: refill * Ney Granados RPH - 02/14/2024 1450 EDT Patient Phone Call Patient reports an injection site reaction (2 inches by 4 inches, red, itchy, warm). I informed thepatient to use hydrocortisone cream 3-4x a day. Can use benadryl at night to help sleep if needed. Can also proactively apply hydrocortisone cream for next injection. Will reach out to us if doesn't resolve in a week or so. Ney Granados, [facility] 02/28/2024 documented in this encounter Plan of Treatment Upcoming Encounters Date Type Department Care Team (Late st Contact Info) Description 07/02/2024 11:15 EDT Office Visit [facility] Neurology - [address] [place] [address] [place] [address] Maribel Giraldo MD 1 [facility], Level [address] [place] [address] documented as of this encounter Visit Diagnoses Not on filedocumented in this encounter Care Teams Manager Placement Relationship Specialty Start Date End Date Geno Velásquez FNP Lauren ROWAN [address] [place] [phone] PCP - General Family Medicine - Primary Care 12/24/22 documented as of this encounter
--- OUTSIDE RECORDS SUMMARY | 2024-06-11 22:30 | XMS_ITS | Encounter Summary ---
Author Organization [facility] Address [address] [place] [address] Care Team Providers Care Kitchen Aide Name Role Phone Pablo Solorio MD Primary Care Provider Meka harrington Reason for Visit * Reason Comments Follow-up 3 Month FU; Chicari Decompression 12/01 Encounter Details Date Type Department Care Team (Latest Contact Info) Description 03/08/2011 11:00 EDT Office Visit [facility] Neurosurgery - Main [place] [address] [place] [address] Ye Dorsey MD [address] [place] [phone] Chiari malformation type I (CMS-HCC) (Primary Dx) Social History Tobacco Use Types Packs/Day Years Used Date Smoking Tobacco: Never Assessed Sex and Gender Information Value Date Recorded Sex Assigned at Not on file Gender Identity Not on file Sexual Orientation Not on file documented as of this encounter Last Filed Vital Signs Vital Sign Reading Time Taken Comments Blood Pressure 115/77 03/08/2011 1120 EDT Pulse 60 03/08/2011 1120 EDT Temperature - - Respiratory Rate 16 03/08/2011 1120 EDT Oxygen Saturation - - Inhaled Oxygen Concentration - - Weight 70.3 kg (155 lb) 03/08/2011 1120 EDT Height 165.1 cm (5' 5) 03/08/2011 1120 EDT Body Mass Index 25.79 03/08/2011 1120 EDT documented in this encounter Functional Status Cognitive Status Response Date of Assessm ent Because of a physical, menta l, or emotional condition, do you have serious difficulty concentrating, remembering, or making decisions? (5 years old or older) Yes 12/01/2010 documented as of this encounter Progress Notes * Abi Israel - 03/10/2011 1103 EDT * Ye Dorsey - 03/08/2011 1135 EDT This office note has been dictated. documented in this encounter Plan of Treatment Upcoming Encounters Date Type Department Care Team (Late st Contact Info) Description 07/02/2024 11:15 EDT Office Visit [facility] Neurology - S [address] [phone] Maribel Giraldo MD [address] [place] [address], [address] 2 [place] [phone] documented as of this encounter Visit Diagnoses Diagnosis Chiari malformation type I (HCC-CMS)- Primary Compression of brain * Evaluation - Ye Dorsey - 03/09/2011 1119 EDT DIVISION OF NEUROSURGERY NEW PATIENT EVALUATION - 03/08/2011 Pablo Solorio MD [address] [place], [place] [address] Dear Dr Solorio: Jenna Smallwood was here for further erythropoietin for her 3-month postoperative visit after a Chiari decompression. She has done very well. She has had no recurrence of headaches at all. She has had suboccipital headaches, as well as what she describes as migraines. She has had none of these since the day of surgery. Her wound has healed very well. I am pleased with Cl's progress. If she is to have return of symptoms, I would repeat an MRI at that time, but I would not repeat one for surveillance purposes only. Thank you for involving me in her care. Sincerely, Electronically Signed by Ye Dorsey MD 03/09/2011 11:17 Ye Dorsey MD Professor Of Exercise Science [facility] Division of Neurological Surgery - Ye Dorsey MD - [facility] Job ID: SM Doc ID: [id number] Ext Doc ID: [id number] cc: Pablo Solorio MD documented in this encounter Care Teams Kitchen Aide Relationship Specialty Start Date End Date Pablo Solorio MD PCP - General 02/13/09 12/23/22 documented as of this encounter
--- OUTSIDE RECORDS SUMMARY | 2024-06-11 22:30 | XMS_ITS | Encounter Summary ---
Author Organization [facility] Address [address] [place] [address] Care Team Providers Care Quality Analyst Name Role Phone Geno Velásquez PRINTED CIRCUIT BOARD PANELS TRIMMER Primary Care Provider [phone] Encounter Details Date Type Department Care Team (Latest Contact Info) Description 06/11/2024 Specialty Pharmacy [facility] [address] [place] [phone] Ney Granados [facility] Refill Coordination Outreach for Headache Social History [...] Info) Description 07/02/2024 11:15 EDT Office Visit [facility] Neurology - S [address] [address] Maribel Giraldo MD [address] [place] [address] [address] [place] [phone] documented as of this encounter Visit Diagnoses Not on filedocumented in this encounter Care Teams Quality Analyst Relationship Specialty Start Date End Date Geno Velásquez FNP [address] [place] [phone] PCP - General Family Medicine - Primary Care 12/24/22 documented as of this encounter
--- OUTSIDE RECORDS SUMMARY | 2024-06-11 22:30 | XMS_ITS | Encounter Summary ---
Author Organization [facility] Address [address] [place] [address] Care Team Providers Care Debone Supervisor Name Role Phone Geno Velásquez Primary Care Provider [phone] Reason for Referral * Radiology Services (Routine/Next Available) - Specialty Report Received Specialty Diagnoses / Procedures Referred By Patricia wheeler Referred To Contact Diagnoses Chiari I malformation ([facility]) Procedures MR HEAD WO CONTRAST CHG MRI BRAIN Maribel Giraldo MD [address] [place] [phone] Referral ID Status Reason Start Date Expiration Date V isits Requested Visits Authorized [id number] Specialty Report Received 05/09/2023 1 1 Reason for Visit * Reason Comments New Patient Visit Telemedicine Video Visit * Referral (Routine) - Receiving Office to Obtain Authorization Specialty Diagnoses / Procedures Referred By Patricia wheeler Referred To Contact Neurology Diagnoses Migraine, unspecified, not intractable, without status migrainosus Compression of brain ([facility]) Geno Velásquez FNP [address] [place] [phone] Park Warren DO [address] [phone] Referral ID Status Reason Start Date Expiration Date Visits Requested Visits Authorized [id number] Receiving Office to Obtain Authorization 1 1 Encounter Details Date Type Department Care Team (Late st Contact Info) Description 05/09/2023 9:00 EDT Telemedicine [facility] Neurology - [address] [id number] Maribel Giraldo MD [address] [place] [address], [address] [place] [address] Chiari I malformation ([facility]) (Primary Dx); Chronic migraine with aura Social History Tobacco Use Types Packs/Day Years Used Date Smoking Tobacco: Never Smokeless Tobacco: Never Tobacco Cessation:Counseling Given: No Alcohol Use Standard Drinks/Week Comments Not Currently [...] Yes 12/01/2010 documented as of this encounter Patient Instructions * Patient Instructions* Maribel Giraldo MD - 05/09/2023 9:00 EDT Further testing: - MR brain ordered today Abortive/as-needed therapy: - Start sumatriptan 50 mg - Take 1 tab at onset of headache, may repeat once in 2 hours if needed. May take 2 tabs if needed. Max of 200 mg in 24 hours and 8 treatment days per month. - Start zofran for nausea. Take 4-8 mg as needed up to twice a day Daily/Preventive therapy: - Start amitriptyline 5 mg (1/2 tab) nightly for one week. Increase to 10 mg (1 tab) nightly for one week, then increase by 10 mg (1 tab) weekly to target does 50 mg (5 tabs) nightly Health habits/nonpharmacologic treatments: - Consider acupuncture Headache diary: - Maintain a headache diary to be reviewed at the next follow-up visit. Track how many days you have headaches and how severe they are, as well as when you take medication for them. With questions or concerns call [phone] or send a message through the [employer] system. documented in this encounter Ordered Prescriptions Prescription Sig Dispensed Refills Start Date End Da te LORazepam (ATIVAN) 0.5 mg tablet Take 1 tablet 30 minutes prior to MRI. May repeat just prior to MRI if needed. 2 Tablet 05/09/2023 SUMAtriptan (IMITREX) 50 mg tablet Take 1 Tablet by mouth as needed for Migraine. May take 2. May repeat dose after 3 hours. Limit 200 mg per day, 2 days per week. 9 Tablet 5 05/09/2023 ondansetron (ZOFRAN) 4 mg tablet Take 1 Tablet by mouth 2 times daily. May take 2 tablets if needed. 30 Tablet 1 05/09/2023 amitriptyline (ELAVIL) 10 mg tablet Take 5 Tablets by mouth at bedtime. Start amitriptyline 5 mg (1/2 tab) nightly for one week. Increase to 10 mg (1 tab) nightly for one week, then increase by 10 mg (1 tab) weekly to target does 50 mg (5 tabs) nightly. 150 Tablet 3 05/09/2023 documented in this encounter Progress Notes * Maribel Giraldo MD - 05/09/2023 0900 EDT The concept of ???Telemedicine?? has been described to the patient.? Patient has been informed of the anticipated benefits and possible risks.? Patient understands the information provided regardingtelemedicine, has had the opportunity to ask questions about this information, and all questions have been answered to patient???s satisfaction. Patient consents for the use of telemedicine in his/her medical care and authorizes the transmission of any relevant medical information to providers and their staff involved in patient???s medical or mental health care. TELEMEDICINE VIDEO VISIT Today's visit was provided through telemedicine video conferencing: I have reviewed the appropriateness of using video technology with the patient with regards to today's visit. The location of the patient : Home Patient location state: Visit Location State: [place] The location of the provider: Home Office Provider location state: [place] The following people and their roles were present for today's visit: Appointment Provider: Maribel Giraldo MD NEUROLOGY NEW PATIENT NOTE 05/09/23 HPI: Jenna Smallwood is a 33 y.o. left-hand dominant female seen today at the request of RANDY Hernandez for evaluation of headache. I have reviewed the intake form for today's visit. Headache Presentation: She started having headaches at [...] has visual symptoms about 10-12 days/month. Headache frequency: Total # of headache days per month: 26-27 # of severe headache days per month: 22 # of headache free days per month: 3-4 Headache duration: all day Missed school or work: Can't miss Current headache regimen: Abortive: tramadol Preventive: none Nonpharmacologic therapies: None Past/Failed therapies: Acute medications: ibuprofen, tylenol, tramadol (mild effective). 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 Feels supported and safe at home Family headache history: father and siblings with migraine No past medical history on file. There are no problems to display for this patient. Outpatient Medications Marked as Taking for the 05/09/23 encounter (Telemedicine) with Maribel Giraldo MD Medication Sig ??? acetaminophen (TYLENOL) 650 mg tablet Take 1 Tablet by mouth every 6 hours. ??? albuterol 90 mcg/actuation inhaler INHALE ONE TO TWO PUFFS BY MOUTH EVERY 4 HOURS NEEDED ??? omeprazole (PRILOSEC) 20 mg capsule Allergies Allergen Reactions ??? Aspirin Hives and Rash ??? Banana ??? Watermelon Hives Vomiting also, both watermelon and bananas Social History Socioeconomic History ??? Marital status: Single Tobacco Use ??? Smoking status: Never ??? Smokeless tobacco: Never Substance and Sexual Activity ??? Alcohol use: Not Currently ??? Drug use: Not Currently ROS: A complete 16 point review of systems was completed on the new patient self assessment form. This form has been reviewed with the patient. Physical Exam: Vitas: Not taken for teleneuro visit Physical Exam: General: Patient of apparent stated age, well nourished, no acute distress HEENT: Normocephalic Resp: Breathing comfortably on room air Neurological exam: Mental status: Alert and oriented to person, place, date, time. Clear fluent language, no dysarthria. Normal fund of knowledge. Memory intact Cranial nerves: III, IV, : Extra ocular movements intact. No nystagmus is present. No ptosis or anisocoria is noted. VII: Face symmetric IX and X: Gag deferred. No dysarthria or dysphonia. Palate elevation symmetric XI: Shoulder shrug intact XII: Tongue midline, no atrophy or fasciculations Motor: Normal bulk. No pronator drift. Strength is at least anti-gravity in bilateral upper and lower extremities Coordination: Finger to nose intact. No dysmetria. No ataxia Gait: Stable steady gait. Imaging, Labs, Studies: Last head imaging was presurgical in 2010. Depression, Anxiety and Headache Scales: Depression Screening: PHQ-9 score 3 which concerning for PHQ-9 score 1-4 = No or Minimal depression PHQ-9 score 5-9 = Mild depression PHQ-9 score 10-14 = Moderate depression PHQ-9 score 15-19 = Moderately severe depression PHQ-9 score 20-27 = Severe depression Anxiety Screening: MYRIAM-7 score 0 which concerning for MYRIAM-7 Score 0-4 = No Anxiety MYRIAM-7 Score 5-9 = Mild Anxiety MYRIAM-7 Score 10-14 = Moderate Anxiety Score >15 = Severe Anxiety Migraine Disability Screening: HIT-6 (Headache Inpact Test) score 56 which indicates HIT-6 score 49 or less = Little or no impact HIT-6 score 50-55 = Some impact HIT-6 score 56-59 = Substantial impact HIT-6 score 60 or higher = Severe impact MIDAS (Migraine Disability Assessment) score 15 which indicates MIDAS Score 0-5 = Grade I, Little or no disability MIDAS Score 6 to 10 = Grade II, Mild disability MIDAS Score 11 to 20 = Grade III, Moderate disability MIDAS Score 21+ = Grade IV, Severe disability ASSESSMENT/PLAN: Assessment: History of chiari I malformation s/p decompression in 2010. Chronic migraine with visual aura. Contributions from poor sleep and neck pain. Plan: Further testing: - MR brain ordered today as she hasn't had one since pre-surgery and is having recurring headaches Abortive/as-needed therapy: - Start sumatriptan 50 mg - Take 1 tab at onset of headache, may repeat once in 2 hours if needed. May take 2 tabs if needed. Max of 200 mg in 24 hours and 8 treatment days per month. - Start zofran for nausea. Take 4-8 mg as needed up to twice a day Daily/Preventive therapy: - Start amitriptyline 5 mg (1/2 tab) nightly for one week. Increase to 10 mg (1 tab) nightly for one week, then increase by 10 mg (1 tab) weekly to target does 50 mg (5 tabs) nightly Health habits/nonpharmacologic treatments: - Consider acupuncture. Headache Calenders: - Encouraged Jenna to maintain a headache diary to be reviewed at the next follow-up visit. Follow up in 3 months or earlier if needed. I spent a total of 60 minutes on the date of this encounter meeting with the patient and reviewing documentation/coordinating care as described in the above note. No procedures were performed at the time of the visit. Maribel Giraldo MD 05/09/2023 9:10 Cc: Geno Velásquez Cc: Didier documented in this encounter Plan of Treatment Upcoming Encounters Date Type Department Care Team (Late st Contact Info) Description 07/02/2024 11:15 EDT Office Visit [facility] Neurology - [address] [address] Maribel Giraldo MD [address] [place] [address], [address] [place] [phone] Scheduled Orders Name Type Priority Associated Diagnoses Orde r Schedule MR HEAD WO CONTRAST Imaging Routine Chiari I Malformation ([facility]) Expected: 05/09/2023, Expires: 11/09/2024 documented as of this encounter Visit Diagnoses Diagnosis Chiari I malformation (HCC-CMS)- Primary Compression of brain Chronic migraine with aura documented in this encounter Historical Medications * This list may reflect changes made after this encounter. Medication Sig Dispensed Refills Start Date End Date albuterol 90 mcg/actuation inhaler INHALE ONE TO TWO PUFFS BY MOUTH EVERY 4 HOURS NEEDED 11/25/2022 omeprazole (PRILOSEC) 20 mg capsule 05/02/2023 added in this encounter Care Teams Debone Supervisor Relationship Specialty Start Date End Date Geno Velásquez FNP Lauren [address]OW[facility] [address] [place] [phone] PCP - General Family Medicine - Primary Care 12/24/22 documented as of this encounter
--- OUTSIDE RECORDS SUMMARY | 2024-06-11 22:30 | XMS_ITS | Encounter Summary ---
Author Organization [facility] Address [address] [place] [address] Care Team Providers Care Operations Intelligence Superintendent Name Role Phone Geno Velásquez RANDY Primary Care Provider [phone] Encounter Details Date Type Department Care Team (Latest Contact Info) Description 11/24/2023 Specialty Pharmacy [facility] [address] [place] [id number] Marie Renteria RPH Refill Coordination Outreach for Headache Social History [...] Info) Description 07/02/2024 11:15 EDT Office Visit [facility] Neurology - [address] [phone] Maribel Giraldo MD [address] [place] [address] [address] [place] [phone] documented as of this encounter Visit Diagnoses Not on filedocumented in this encounter Care Teams Operations Intelligence Superintendent Relationship Specialty Start Date End Date Geno Velásquez FNP [address] [place] [address] PCP - General Family Medicine - Primary Care 12/24/22 documented as of this encounter
--- OUTSIDE RECORDS SUMMARY | 2024-06-11 22:30 | XMS_ITS | Encounter Summary ---
Author Organization [facility] Address [address] [place] [address] Care Team Providers Care Lpn Rn Hospice Name Role Phone Geno Velásquez ENVIRONMENTAL SERVICE AIDE Primary Care Provider [phone] Reason for Referral * Consult (Routine/Next Available) - Authorized Specialty Diagnoses / Procedures Referred By Patricia wheeler Referred To Contact Pharmacy Diagnoses Intractable chronic migraine with aura and without status migrainosus Maribel Giraldo MD [address] [place] [address], [address] [place] [address] [facility] [address] [place] [id number] Referral ID Status Reason Start Date Expiration Date Visits Requested Visits Authorized [id number] Authorized Specialty Services Required 3 1 1 Question Answer PA Type: New Medication to be Prior Authorized: CGRP monoclonal antibody Comments The purpose of this request is to inform precertification staff that the requested service needs to be reviewed for prior-authorization. Has failed amitriptyline. Did not tolerate topamax in the past. Beta blockers are contraindicated due to the active asthma. * PT/OT/ST (Routine/Next Available) - Closed Specialty Diagnoses / Procedures Referred By Patricia wheeler Referred To Contact Diagnoses Intractable chronic migraine with aura and without status migrainosus Myalgia Maribel Giraldo MD [address] [place] [address] [address] [place] [address] Referral ID Status Reason Start Date Expiration Date V isits Requested Visits Authorized [id number] Closed Specialty Services Required 08/22/2023 1 1 Question Answer Reason for Request: Chronic headache and chronic neck pain, may benefit from dry needling Reason for Visit * Reason Comments Follow-up Encounter Details Date Type Department Care Team (Late st Contact Info) Description 08/22/2023 10:00 EST Office Visit [facility] Neurology - [address] [address] Maribel Giraldo MD [address] [place] [phone] Intractable chronic migraine with aura and without status migrainosus (Primary Dx); Chiari I malformation (HCC[facility]); Myalgia Social History Tobacco Use Types Packs/Day Years Used Date Smoking Tobacco: Never Smokeless Tobacco: Never Tobacco Cessation:Counseling Given: Not Answered Alcohol Use Standard Drinks/Week Comments Not Currently [...] Sign Reading Time Taken Comments Blood Pressure 132/70 08/22/2023 0933 EST Pulse 68 08/22/2023 0933 EST Temperature - - Respiratory Rate 18 08/22/2023 0933 EST Oxygen Saturation 100% 08/22/2023 0933 EST Inhaled Oxygen Concentration - - Weight 92.1 kg (203 lb) 08/22/2023 0933 EST Height - - Body Mass Index - - documented in this encounter Functional Status Cognitive Status Response Date of Assessm ent Because of a physical, menta l, or emotional condition, do you have serious difficulty concentrating, remembering, or making decisions? (5 years old or older) Yes 12/01/2010 documented as of this encounter Patient Instructions * Patient Instructions* Maribel Giraldo MD - 08/22/2023 10:00 EST Acute treatment: - At onset of severe headache take Relpax (eletriptan) 40mg. May repeat a dose in 2 hours. The maximum is 2 tabs or 80mg in 24 hours. - Continue ondansetron (zofran) as needed for nausea Prevention: - Discussed anti-CGRP antibodies including clinical data, side effects, benefits, dosing, and administration, as well as answered questions. Place [place] for a CGRP monoclonal antibody - Continue amitriptyline 50 mg nightly documented in this encounter Ordered Prescriptions Prescription Sig Dispensed Refills Start Date End Da te eletriptan (RELPAX) 40 mg tablet At ONSET of severe headache. You may repeat a dose in 2 hours. The maximum is 2 tabs or 80mg in 24 hours. 12 Tablet 11 08/22/2023 documented in this encounter Progress Notes * Maribel Giraldo MD - 08/22/2023 1000 EST NEUROLOGY followup NOTE 08/22/23 HPI: Jenna Smallwood is a 33 y.o. left-hand dominant female seen today for followup of History of chiari I malformation s/p decompression in 2010. Chronic migraine with visual aura. Contributions from poor sleep and neck pain. Since the last visit: She started amitriptyline after the last visit. Initially she was tired with it and sleeping better, and saw a small reduction in headache frequency. Then she developed tolerance to the amitriptylineand started waking up in the night again. She is currently having maybe 6-7 headache free days per month. Severity has decreased significantly. She is taking sumatriptan acutely but it is not at all effective. She tried up to 100 mg without benefit. Zofran is effective for nausea. She continues to have pronounced neck pain. She wants to try dry needling and found a local PT, just needs a referral. 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 Feels supported and safe at home Family headache history: father and siblings with migraine No past medical history on file. There are no problems to display for this patient. Active asthma Outpatient Medications Marked as Taking for the 08/22/23 encounter (Office Visit) with Maribel Giraldo MD Medication Sig ??? acetaminophen (TYLENOL) 650 mg tablet Take 1 Tablet by mouth every 6 hours. ??? albuterol 90 mcg/actuation inhaler INHALE ONE TO TWO PUFFS BY MOUTH EVERY 4 HOURS NEEDED ??? amitriptyline (ELAVIL) 10 mg tablet Take 5 Tablets by mouth at bedtime. Start amitriptyline 5 mg (1/2 tab) nightly for one week. Increase to 10 mg (1 tab) nightly for one week, then increase by 10 mg (1 tab) weekly to target does 50 mg (5 tabs) nightly. ??? LORazepam (ATIVAN) 0.5 mg tablet Take 1 tablet 30 minutes prior to MRI. May repeat just prior to MRI if needed. ??? omeprazole (PRILOSEC) 20 mg capsule ??? ondansetron (ZOFRAN) 4 mg tablet Take 1 Tablet by mouth 2 times daily. May take 2 tablets if needed. ??? SUMAtriptan (IMITREX) 50 mg tablet Take 1 Tablet by mouth as needed for Migraine. May take 2. May repeat dose after 3 hours. Limit 200 mg per day, 2 days per week. Allergies Allergen Reactions ??? Aspirin Hives and Rash ??? Banana ??? Watermelon Hives Vomiting also, both watermelon and bananas Social History Socioeconomic History ??? Marital status: Single Tobacco Use ??? Smoking status: Never ??? Smokeless tobacco: Never Substance and Sexual Activity ??? Alcohol use: Not Currently ??? Drug use: Not Currently ROS: Review of Systems: A 10 point ROS was negative except as noted above. Physical Exam: Patient Vitals for the past 24 hrs: BP Pulse Resp SpO2 Weight 08/22/23 0933 132/70 68 18 100 % 92.1 kg (203 lb) Exam: Patient was pleasant, alert and oriented x3, in no acute distress. Normal affect. Speech was non-dysarthric, language and comprehension intact. Normal fundoscopic exam. Extraocular movements intact with no ptosis. Face symmetric. Moves upper extremities symmetrically. Exquisitely TTP over cervical paraspinals, causes radiating pain and reproduces headache. TTP over occipital notches b/l with reproduction of headache. Imaging, Labs, Studies: Last head imaging was presurgical in 2010. MRI brain without contrast done 05/25/2023 at [facility] (no images available for my review): IMPRESSION 1. ??Post suboccipital decompression changes without crowding at the [...] (zofran) as needed for nausea Prevention: - Discussed anti-CGRP antibodies including clinical data, side effects, benefits, dosing, and administration, as well as answered questions. Place PA for a CGRP monoclonal antibody - Continue amitriptyline 50 mg nightly Health habits/nonpharmacologic treatments: - Placed physical therapy referral today for dry needling - Encouraged her to send me the information for letter for work (needs to stay out of the cold) - We might consider occipital nerve blocks and trigger point injections in the future. Headache Calenders: - Encouraged Jenna to maintain a headache diary to be reviewed at the next follow-up visit. Follow up in 3 months or earlier if needed. Maribel Giraldo MD 08/22/23 Cc: Geno Velásquez Cc: Didier documented in this encounter Plan of Treatment Upcoming Encounters Date Type Department Care Team (Late st Contact Info) Description 07/02/2024 11:15 EDT Office Visit [facility] Neurology - [address] [address] Maribel Giraldo MD [address] [place] [address], [address] [place] [phone] Scheduled Referrals Name Type Priority Associated Diagnoses Order Schedule AMB CONS/FOLLOW UP PHYSICAL THERAPY - OUTSIDE OF NETWORK Outpatient Referral Routine/Next Available Intractable Chronic Migraine With Aura And Without Status Migrainosus Myalgia Expected: 08/29/2023 (Approximate), Expires: 08/22/2024 AMB CONS/FOLLOW UP SPECIALTY PHARMACY Outpatient Referral Routine/Next Available Intractable Chronic Migraine With Aura And Without Status Migrainosus Expected: 08/29/2023 (Approximate), Expires: 08/22/2024 documented as of this encounter Visit Diagnoses Diagnosis Intractable chronic migraine with aura and without status migrainosus- Primary Chiari I malformation (HCC-CMS) Compression of brain Myalgia Mylagia and myositis, unspecified documented in this encounter Care Teams Lpn Rn Hospice Relationship Specialty Start Date End Date Geno Velásquez FNP [address] [place] [phone] PCP - General Family Medicine - Primary Care 12/24/22 documented as of this encounter
--- OUTSIDE RECORDS SUMMARY | 2024-06-11 22:30 | XMS_ITS | Encounter Summary ---
Author Organization [facility] Address [address] [place] [address] Care Team Providers Care Leather Goods I Assembler Name Role Phone Geno Velásquez RANDY Primary Care Provider [phone] Encounter Details Date Type Department Care Team (Latest Contact Info) Description 10/02/2023 Specialty Pharmacy [facility] [address] [place], [place] [id number] Lidia Rowley RPH Initial Clinical Follow-up (by 6 weeks) for Headache, Refill Coordination Outreach for Headache Social History [...] as of this encounter Progress Notes * Lidia Rowley RPH - 10/02/[address] [facility] Neurology Clinic: CGRP Medication 6 Week Follow Up Jenna Diamond Cl is a 33 y.o. female being treated with Emgality for chronic migraine. Spoke with patient regarding the following via Telephone Adherence: Patient began therapy 09/12/23 and has administered 2 doses (loading dose) The patient's next dose is due 10/10/23 Side effects/toxicities: none Assessment: Patient's first injection: went well- stated it hurt more than expected, but no rash/hives and welltolerated Any improvements noted: none yet Education Provided: reminded it may take 3-6 doses to perceive full benefit. Follow-up planned: Clinic appointment: 01/11/24 Phone call: routine 6 month follow up Next dose due: 10/10/23 Lidia Rowley, PharmD [facility] Specialty Pharmacy 10/02/2023 documented in this encounter Plan of Treatment Upcoming Encounters Date Type Department Care Team (Late st Contact Info) Description 07/02/2024 11:15 EDT Office Visit [facility] Neurology - [address] [address] Maribel Giraldo MD 1 [facility], Level 2 [place] [phone] documented as of this encounter Visit Diagnoses Not on filedocumented in this encounter Care Teams Leather Goods I Assembler Relationship Specialty Start Date End Date Geno Velásquez FNP Lauren ROWAN [address] [place] [phone] PCP - General Family Medicine - Primary Care 12/24/22 documented as of this encounter
--- OUTSIDE RECORDS SUMMARY | 2024-06-11 22:30 | XMS_ITS | Encounter Summary ---
Author Organization [facility] Address [address] [place] [address] Care Team Providers Care Baker Pie Name Role Phone Geno Velásquez TRAVELING REPRESENTATIVE Primary Care Provider [phone] Encounter Details Date Type Department Care Team (Latest Contact Info) Description 05/13/2024 Specialty Pharmacy [facility] [address] [place] [id number] Ney Granados [facility] Refill Coordination Outreach for Headache Social History [...] Info) Description 07/02/2024 11:15 EDT Office Visit [facility] Neurology - S [address] [phone] Maribel Giraldo MD [address] [place] [address] [address] [place] [phone] documented as of this encounter Visit Diagnoses Not on filedocumented in this encounter Care Teams Baker Pie Relationship Specialty Start Date End Date Geno Velásquez FNP [address] [place] [phone] PCP - General Family Medicine - Primary Care 12/24/22 documented as of this encounter
--- OUTSIDE RECORDS SUMMARY | 2024-06-11 22:30 | XMS_ITS | Clinical Summary ---
Author Organization [facility] Address [address] [place] [address] Care Team Providers Care Aircraft Magneto Mechanic Name Role Phone Geno Velásquez CHANNEL LIP STIFFENER INSOLES Primary Care Provider [phone] Allergies Active Allergy Reactions Criticality Noted Date Comments Aspirin Hives,Rash 09/15/2010 Banana 12/04/2010 Watermelon Hives 11/22/2010 Vomiting also, both watermelon and bananas Medications Medication Sig Dispensed Refills Start Date End Date Status acetaminophen (TYLENOL) 650 mg tablet Take 1 Tablet by mouth every 6 hours. 12/05/2010 Active omeprazole (PRILOSEC) 20 mg capsule 05/02/2023 Active albuterol 90 mcg/actuation inhaler INHALE ONE TO TWO PUFFS BY MOUTH EVERY 4 HOURS NEEDED 11/25/2022 Active amitriptyline (ELAVIL) 10 mg tablet Take 5 Tablets by mouth at bedtime. Start amitriptyline 5 mg (1/2 tab) nightly for one week. Increase to 10 mg (1 tab) nightly for one week, then increase by 10 mg (1 tab) weekly to target does 50 mg (5 tabs) nightly. 150 Tablet 3 05/09/2023 Active ondansetron (ZOFRAN) 4 mg tablet Take 1 Tablet by mouth 2 times daily. May take 2 tablets if needed. 30 Tablet 1 05/09/2023 Active SUMAtriptan (IMITREX) 50 mg tablet Take 1 Tablet by mouth as needed for Migraine. May take 2. May repeat dose after 3 hours. Limit 200 mg per day, 2 days per week. 9 Tablet 5 05/09/2023 Active Additional Information Patient not taking.Reported on 01/15/2024 LORazepam (ATIVAN) 0.5 mg tablet Take 1 tablet 30 minutes prior to MRI. May repeat just prior to MRI if needed. 2 Tablet 05/09/2023 Active Additional Information Patient not taking.Reported on 01/15/2024 eletriptan (RELPAX) 40 mg tablet At ONSET of severe headache. You may repeat a dose in 2 hours. The maximum is 2 tabs or 80mg in 24 hours. 12 Tablet 11 08/22/2023 Active galcanezumab-GNLM (EMGALITY PEN) 120 mg/mL injection Inject 240 mg into the skin Once for 1 dose. 2 mL 09/06/2023 Active galcanezumab-GNLM (EMGALITY PEN) 120 mg/mL injection Inject 120 mg into the skin every 28 days. 3 mL 3 09/06/2023 Active Active Problems Patient Care Coordination No te Formatting of this note migh t be different from the original. Chiari malformation, Suboccipital decompression with C1 laminectomy, on 12/01/[address] Dorsey. Problem Noted Date Diagnosed Date Migraine 09/06/2023 Encounters Date Type Department Care Team Description 06/11/2024 Specialty Pharmacy [facility] [address] [place] [address] Ney Granados RPH Refill Coordination Outreach for Headache 05/13/2024 Specialty Pharmacy [facility] [address] [place] [address] Ney Granados RPH Refill Coordination Outreach for Headache 04/15/2024 Telephone [facility] [place] [address] Maribel Giraldo MD Prior Auth, Medication 04/11/2024 Specialty Pharmacy [facility] [address] [place], [place] [phone] Ney Granados RPH Refill Coordination Outreach for Headache 03/18/2024 Specialty Pharmacy [facility] [address] [place] [address] Ney Granados RPH Refill Coordination Outreach for Headache from Last 3 Months Social History Tobacco Use Types Packs/Day Years [...] on file Sexual Orientation Not on file Obstetrics History Last Filed Vital Signs Vital Sign Reading Time Taken Comments Blood Pressure 126/80 01/15/2024 1004 EDT Pulse 75 01/15/2024 1004 EDT Temperature 35.6 ??C (96.1 ??F) 12/05/2010 0743 EDT Respiratory Rate 14 01/15/2024 1004 EDT Oxygen Saturation 100% 01/15/2024 1004 EDT Inhaled Oxygen Concentration - - Weight 92.1 kg (203 lb) 08/22/2023 0933 EST Height 165.1 cm (5' 5) 03/08/2011 1120 EDT Body Mass Index - - Plan of Treatment Upcoming Encounters Date Type Department Care Team (Late st Contact Info) Description 07/02/2024 11:15 EDT Office Visit [facility] Neurology - S [place] [address] [place], [place] [phone] Maribel Giraldo MD [address] [place] [address], Level 2 [place] [phone] Health Maintenance Due Date Last Done Comments Hepatitis C Screen 1990 Hepatitis B Vaccine (1 of 3 - 19+ 3-dose series) 01/20 COVID-19 Vaccine ( season) 2024 Advance Directives For more information, please contact: [phone] * Full Code (Latest Code Status on File) Date Activated Date Inactivated Comments 12/01/2010 12:11 12/05/2010 13:17 Care Teams Aircraft Magneto Mechanic Relationship Specialty Start Date End Date Geno Velásquez FNP Lauren [address] [facility] 1 [place] [address] PCP - General Family Medicine - Primary Care 12/24/22
--- OUTSIDE RECORDS SUMMARY | 2024-06-11 22:30 | XMS_ITS | Encounter Summary ---
Author Organization [facility] Address [address] [place] [address] Care Team Providers Care Meringuer Name Role Phone Geno Velásquez IMPORT/EXPORT AGENT Primary Care Provider [phone] Encounter Details Date Type Department Care Team (Latest Contact Info) Description 01/22/2024 Specialty Pharmacy [facility] [address] [place] [phone] Samuel Lindsey Flora Refill Coordination Outreach for Headache Social History [...] Info) Description 07/02/2024 11:15 EDT Office Visit [facility] Neurology - S [address] [phone] Maribel Giraldo MD [address] [place] [address] [address] [place] [phone] documented as of this encounter Visit Diagnoses Not on filedocumented in this encounter Care Teams Meringuer Relationship Specialty Start Date End Date Geno Velásquez FNP [address] [place] [phone] PCP - General Family Medicine - Primary Care 12/24/22 documented as of this encounter
--- OUTSIDE RECORDS SUMMARY | 2024-06-11 22:30 | XMS_ITS | Encounter Summary ---
Author Organization [facility] Address [address] [place] [address] Care Team Providers Care Front Office Coordinator Name Role Phone Pablo Solorio MD Primary Care Provider Meka harrington Encounter Details Date Type Department Care Team (Late st Contact Info) Description 11/21/2018 Results Only [facility] [phone] Subhash Cassidy MD [address] [place] [address] [address] [place] [phone] Social History Tobacco Use Types Packs/Day Years [...] Info) Description 07/02/2024 11:15 EDT Office Visit [facility] Neurology - S [address] [phone] Maribel Giraldo MD [address] [place] [address], [address] [place] [phone] documented as of this encounter Procedures Procedure Name Priority Date/Time Associated Diagnosis Comments SURGICAL PATHOLOGY Routine 11/21/2018 16 :47 EST documented in this encounter Results * SURGICAL PATHOLOGY (11/21/2018 16:47 EST) Pathology Report: SURGICAL PATHOLOGY REPORT Reports generated via electronic interface contain original data; however they are lacking the format of the original report. Caution should be taken when reading/interpreti ng unformatted reports. Name: ? JEAN CARLOS SMALLWOOD ? Accession #: ? [id number] ? : ? 1990 (Age: 28) ??F ? Collect Date: ? 11/21/2018 ? Location: ? [facility] ? Receive Date: ? 11/21/2018 ? Provider: SUBHASH CASSIDY MD Copy to: SERA CHAUDHARY MD ? Final Pathologic Diagnosis: A. FALLOPIAN TUBE, CLINICALLY LEFT, STERILIZATION: - ??Tube with no significant histopathologic abnormality. - ??Negative for atypia or malignancy. B. FALLOPIAN TUBE, CLINICALLY RIGHT, STERILIZATION: - ??Endosalpingosis and tube with no significant histopathologic abnormality. - ??Negative for atypia or malignancy. Document reviewed and electronically signed by: MAYCOL VALLEJO MD Report ??Date: 11/24/2018 11:27 By the signature above, the attending physician certifies that he/she has personally conducted a gross and/or microscopic examination of the described specimens and rendered or confirmed the above diagnosis. Specimen(s) Received: A. ??L fallopian tube B. ??R fallopian tube Clinical History: Desire for sterilization Gross Description: A. ?Received in formalin labelled with proper patient identification (initials Y, C) and L fallopian tube is a fimbriated fallopian tube (5.3 cm in length and 0.5 cm in diameter). The serosa is dark purple and hyperemic. The cut surfaces show an unremarkable pinpoint lumen. The longitudinally dissected fimbria and two cross sections are submitted in A1 and A2. B. ?Received in formalin labelled with proper patient identification (initials Y, C) and R fallopian tube is a fimbriated fallopian tube (4.5 cm in length x 0.5 cm in diameter). The serosa is white-purple and hyperemic with a peritubal cyst (1.4 cm in greatest dimension) at the fimbriated end. The cut surfaces show an unremarkable pinpoint lumen. The longitudinally bisected fimbria (including cyst) and two cross sections are submitted in B1-B2. ASHU Chan (ASCP) 11/22/2018 7:21 AM End of Report [facility] 11/21/2018 16:4 7 EST 11/21/2018 16:47 EST Subhash Cassidy MD PATHOLOGY ORDERABLES [facility] [address] [place] [address] documented in this encounter Visit Diagnoses Not on filedocumented in this encounter Care Teams Front Office Coordinator Relationship Specialty Start Date End Date Pablo Solorio MD PCP - General 02/13/09 12/23/22 documented as of this encounter
--- OUTSIDE RECORDS SUMMARY | 2024-06-11 22:30 | XMS_ITS | Encounter Summary ---
Author Organization [facility] Address [address] [place] [address] Care Team Providers Care Php Lamp Developer Name Role Phone Pablo Solorio MD Primary Care Provider Meka harrington Reason for Visit * Reason Comments Post-OP Follow Up s/p chiari decomp 12/01/10 Encounter Details Date Type Department Care Team (Late st Contact Info) Description 12/27/2010 15:30 EDT Office Visit [facility] Neurosurgery - [address] [address] Raisa Fleming PA-C [address] [place] [address], Level [address] [place] [phone] Chiari malformation (Primary Dx) Discharge Disposition: Auto Discharge Social History Tobacco Use Types Packs/Day Years Used Date Smoking Tobacco: Never Assessed Sex and Gender Information Value Date Recorded Sex Assigned at Not on file Gender Identity Not on file Sexual Orientation Not on file documented as of this encounter Last Filed Vital Signs Vital Sign Reading Time Taken Comments Blood Pressure 122/74 12/27/2010 1537 EDT Pulse 80 12/27/2010 1537 EDT Temperature - - Respiratory Rate 18 12/27/2010 1537 EDT Oxygen Saturation - - Inhaled Oxygen Concentration - - Weight - - Height - - Body Mass Index - - documented in this encounter Functional Status Cognitive Status Response Date of Assessm ent Because of a physical, menta l, or emotional condition, do you have serious difficulty concentrating, remembering, or making decisions? (5 years old or older) Yes 12/01/2010 documented as of this encounter Discharge Disposition Disposition Code Departure Means Destination Auto Discharge documented in this encounter Progress Notes * Raisa Fleming PA - 01/17/2011 1812 EDT DIVISION OF NEUROSURGERY PROGRESS/FOLLOWUP NOTE - 12/27/2010 Pablo Solorio MD [address] [place] [address] Solorio: I saw Jenna borges in our neurosurgical clinic today in followup. As you know, she is about three weeks out from a suboccipital decompression with C1 laminectomy and duraplasty. She has done verywell since the time of the surgery with complete resolution of her headaches and arm pain. In general, she is very well. She has transitioned off all pain medication and is anxious to return to work.She is avoiding lifting, twisting and repetitive overhead motion. Objective: Vital signs: Blood pressure 122/74, pulse 80, respirations 18. The patient is awake, alert and oriented. She is in no apparent distress. Her strength is grossly full in her upper extremities. Gait is nonantalgic. Impression: Status post suboccipital decompression with C1 laminectomy. Plan: The patient will be given a note to return to work 10 hours per week starting on January 07. She will see Dr Dorsey back at 3 months from the date of her surgery. I have asked her to call me inthe interim with concerns or questions. Thank you for involving us in this patient's care. Sincerely, Supervising Physician Electronically Signed by Ye Dorsey MD 01/17/2011 18:12 ASHU Ramos Ye Dorsey MD Nurse Transplant [facility] Division of Neurological Surgery - ASHU Ramos - DV Job ID: SM Doc ID: [id number] Ext Doc ID: [id number] cc: Pablo Solorio MD * Raisa Fleming PA - 12/27/2010 6182 EDT This office note has been dictated. documented in this encounter Plan of Treatment Upcoming Encounters Date Type Department Care Team (Late st Contact Info) Description 07/02/2024 11:15 EDT Office Visit [facility] Neurology - S [place] [address] [place] [address] Maribel Giraldo MD [address] [place] [address], Level [address] [place] [phone] documented as of this encounter Visit Diagnoses Diagnosis Chiari malformation- Primary Spina bifida with hydrocephalus, unspecified region documented in this encounter Discontinued Medications Medication Sig Discontinue Reason Start Date End Da te ALMOTRIPTAN MALATE (AXERT ORAL) Take 12.5 mg by mouth as needed. 09/15/2010 12/27/2010 NORTRIPTYLINE HCL (NORTRIPTYLINE ORAL) Take 100 mg by mouth at bedtime. 11/22/2010 12/27/2010 topiramate (TOPAMAX) 200 mg tablet Take 200 mg by mouth at bedtime. 09/15/2010 12/27/2010 docusate sodium (COLACE) 100 mg capsule Take 1 Cap by mouth 2 times daily. 12/05/2010 12/27/2010 promethazine (PHENERGAN) 12.5 mg tablet Take 1-2 Tabs by mouth every 6 hours as needed for Nausea. 12/05/2010 12/27/2010 oxycodone (ROXICODONE) 5 mg immediate release tablet Take 1-3 Tabs by mouth every 6 hours as needed for Pain (discomfort). 12/05/2010 12/27/2010 senna (SENOKOT) 8.6 mg tablet Take 1-2 Tabs by mouth 2 times daily as needed. 12/05/2010 12/27/2010 DIAZepam (VALIUM) 5 mg tablet Take 1-2 Tabs by mouth every 6 hours as needed for Anxiety. 12/05/2010 12/27/2010 documented as of this encounter Care Teams Php Lamp Developer Relationship Specialty Start Date End Date Pablo Solorio MD PCP - General 02/13/09 12/23/22 documented as of this encounter
--- OUTSIDE RECORDS SUMMARY | 2024-06-11 22:30 | XMS_ITS | Encounter Summary ---
Author Organization [facility] Address [address] [place] [address] Care Team Providers Care Language Tutor Name Role Phone Geno Velásquez RANDY Primary Care Provider [phone] Encounter Details Date Type Department Care Team (Latest Contact Info) Description 09/06/2023 Specialty Pharmacy [facility] 1 [place], [place] [address] Samuel Lindsey RPH Patient Education for Headache, Set up initial fill for Headache, Prospective Review for Headache Social History Tobacco Use Types [...] as of this encounter Progress Notes * Samuel Lindsey RPH - 09/06/2023 0911 EST [facility] Headache Clinic Medication Therapy Initiation Note Jenna Smallwood is a 33 y.o. female who will be starting treatment with Emgality for migraines. Planned Start Date: 09/13/23, Duration: until lack of efficacy after an adequate medication trial, disease progression, or unacceptable adverse effects support discontinuation. I performed a complete review of the patient???s medical record, including medications, immunizations, and allergies. 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 Method of Education: telephone Counseled the patient on the following: Therapeutic rationale / Goals of therapy discussed: May take 3-6 injections to perceive benefit Dosage and administration discussed: monthly injection The following resources were recommended to this patient: Injection training video (found on seniour insight manager's website) Patient instructed to review suggested resources and call the pharmacy if any questions or concernsarise Safe handling, storage, and disposal reviewed: Keep refrigerated. Take out 30 minutes to an hour prior to injection. Possible adverse effects and management discussed: Injection site reaction and use of hydrocortisone cream and ice Adherence and missed doses discussed Adherence tools reviewed: calendar Follow up: - Phone call: 4-6 weeks for follow up - Labs: None - Clinic appointment: Visit date not found Calvin AddisonD Specialty Pharmacist 09/07/2023 documented in this encounter Plan of Treatment Upcoming Encounters Date Type Department Care Team (Late st Contact Info) Description 07/02/2024 11:15 EDT Office Visit [facility] Neurology - S [address] [address] Maribel Giraldo MD [address] [place] [address], Level [address] [place] [address] documented as of this encounter Visit Diagnoses Not on filedocumented in this encounter Care Teams Language Tutor Relationship Specialty Start Date End Date Geno Velásquez FNP [address] [place] [phone] PCP - General Family Medicine - Primary Care 12/24/22 documented as of this encounter
--- OUTSIDE RECORDS SUMMARY | 2024-06-11 22:30 | XMS_ITS | Encounter Summary ---
Author Organization [facility] Address [address] [place] [address] Care Team Providers Care Parimutuel Clerk Name Role Phone Geno Velásquez RANDY Primary Care Provider [phone] Reason for Visit * Reason Onset Date Comments Appointment Related 12/04/2023 Encounter Details Date Type Department Care Team (Late st Contact Info) Description 12/04/2023 Telephone [facility] Neurology - S [place] [address] [place] [phone] Maribel Giraldo MD [address] [place] [address], Level 2 [place] [phone] Appointment Related Social History Tobacco Use Types Packs/Day Years [...] encounter Miscellaneous Notes * Telephone Encounter - Isabel Marquez - 12/04/2023 1143 EDT Spoke to Jenna, advised Dr. Giraldo will not be in clinic on 01/10 so we need to reschedule her FUR - she requested an in person visit - rescheduled to 01/15/24 at 10:15 AM documented in this encounter Plan of Treatment Upcoming Encounters Date Type Department Care Team (Late st Contact Info) Description 07/02/2024 11:15 EDT Office Visit [facility] Neurology - S [address] [phone] Maribel Giraldo MD 1 [facility], Level 2 [place] [phone] documented as of this encounter Visit Diagnoses Not on filedocumented in this encounter Care Teams Parimutuel Clerk Relationship Specialty Start Date End Date Geno Velásquez FNP [address] [place] [phone] PCP - General Family Medicine - Primary Care 12/24/22 documented as of this encounter
--- OUTSIDE RECORDS SUMMARY | 2024-06-11 22:30 | XMS_ITS | Encounter Summary ---
Author Organization [facility] Address [address] [place] [address] Care Team Providers Care Chartered Wealth Manager Name Role Phone Geno Velásquez RANDY Primary Care Provider [phone] Encounter Details Date Type Department Care Team (Latest Contact Info) Description 10/27/2023 Specialty Pharmacy [facility] [address] [place] [phone] Lidia Rowley [facility] Refill Coordination Outreach for Headache Social History [...] Info) Description 07/02/2024 11:15 EDT Office Visit [facility] Neurology - S [address] [phone] Maribel Giraldo MD [address] [place] [address] 2 [place] [address] documented as of this encounter Visit Diagnoses Not on filedocumented in this encounter Care Teams Chartered Wealth Manager Relationship Specialty Start Date End Date Geno Velásquez FNP [address] [place] [address] PCP - General Family Medicine - Primary Care 12/24/22 documented as of this encounter
--- OUTSIDE RECORDS SUMMARY | 2024-06-11 22:30 | XMS_ITS | Encounter Summary ---
Author Organization [facility] Address [address] [place] [address] Care Team Providers Care Radio News Anchor Name Role Phone Geno Velásquez SOFTWARE ENGINEER KERNEL Primary Care Provider [phone] Reason for Visit * Reason Onset Date Comments Prior Auth, Medication 04/15/2024 Encounter Details Date Type Department Care Team (Late st Contact Info) Description 04/15/2024 Telephone [facility] Neurology - [address] [address] Maribel Giraldo MD [address] [place] [address], Level 2 [place] [address] Prior Auth, Medication Social History Tobacco Use Types Packs/Day Years [...] encounter Miscellaneous Notes * Telephone Encounter - Maribel Hanson - 04/15/2024 1556 EDT Prior Authorization Approval Medication: Emgality 120MG/ML auto-injectors (migraine) Insurance Name:[place]m Insurance Type: [place] Approval Dates: through 04/15/25 Authorization Number: [id number] Required Pharmacy: No requirement [facility] able to fill?: YES Route to [facility] (if applicable): No Additional Info/Other Notes: Approval letter scanned in chart Prior Authorization Submission Process - Routine Re-Auth Medication: Emgality 120MG/ML auto-injectors (migraine) Insurance: vtm Insurance Type: [place] Date PA Request Received: 04/15/24 PA Submission Date: 04/15/24 CMM: JENNIFER Notes: Re auth Submitted by: DINO Phone: [phone] documented in this encounter Plan of Treatment Upcoming Encounters Date Type Department Care Team (Late st Contact Info) Description 07/02/2024 11:15 EDT Office Visit [facility] Neurology - [address] [address] Maribel Giraldo MD 1 [facility] 2 [place] [phone] documented as of this encounter Visit Diagnoses Not on filedocumented in this encounter Care Teams Radio News Anchor Relationship Specialty Start Date End Date Geno Velásquez FNP Lauren ROWAN [address] [place] [phone] PCP - General Family Medicine - Primary Care 12/24/22 documented as of this encounter
--- OUTSIDE RECORDS SUMMARY | 2024-06-11 22:30 | XMS_ITS | Encounter Summary ---
Author Organization [facility] Address [address] [place] [address] Care Team Providers Care Group Segment Consultant Name Role Phone Pablo Solorio MD Primary Care Provider Geno Hutchins Primary Care Provider [phone] Encounter Details Date Type Department Care Team (Latest Contact Info) Description 11/28/2022 Lab Requisition [facility] Pathology & Laboratory Medicine - [facility] [address] [place] [address] Geno Velásquez, RANDY [address] [facility] 1 [place] [address] Encounter for general adult medical examination without abnormal findings; Encounter for screening for malignant neoplasm of cervix; Encounter for screening for human papillomavirus (HPV) Social History Tobacco Use Types Packs/Day Years [...] Info) Description 07/02/2024 11:15 EDT Office Visit [facility] Neurology - S [place] [address] [place], [place] [phone] Maribel Giraldo MD [address] [place] [address], Level 2 [place] [address] documented as of this encounter Procedures Procedure Name Priority Date/Time Associated Diagnosis Comments PAP TEST Today 11/25/2022 10:30 EST Encounter for general adult medical examination without abnormal findings Encounter for screening for malignant neoplasm of cervix Encounter for screening for human papillomavirus (HPV) HPV DNA DETECTION WITH GENOTYPING, PCR Today 11/25/2022 10:30 EST Encounter for general adult medical examination without abnormal findings Encounter for screening for malignant neoplasm of cervix Encounter for screening for human papillomavirus (HPV) documented in this encounter Results * HUMAN PAPILLOMAVIRUS (HPV) DETECTION-HIGH RISK TYPES (11/25/2022 10:30 EST) HPV other High Risk types, PCR Negative Negative 12/11/2022 16:18 EDT [facility] Comment:No E6 or E7 mRNA is detected from HPV types 16,18,31,33,35,39,45,51,52,56,58,59,66, and 68 by account strategist mediated amplification. Papanicolaou smear specimen (specimen) CERVIX UTERI STRUCTURE / Unknown 11/25/2022 10:30 EST 12/09/2022 10:11 EDT Geno Velásquez REPATCHER MICROBIOLOGY - GENER AL ORDERABLES [facility] [address] [place] [address] * PAP TEST (11/25/2022 10:30 EST) Specimens A. Cervix and/or Endocervix , ThinPrep Imaging System with Manual Evaluation 12/11/2022 16:18 EDT [facility] Specimen Adequacy Satisfactory for Evaluation - transformation zone component present 12/11/2022 16:18 EDT [facility] General Categorization Negative for intraepithelial lesion or malignancy 12/11/2022 16:18 EDT [facility] Attestation . 12/11/2022 16:18 T [facility] at 1618 Clinical History SEE BELOW 12/12/19 16:18 EDT [facility] HPV The result for the Human Papillomavirus (HPV) Detection-High Risk Types is Negative. No E6 or E7 mRNA is detected from HPV types 16,18,31,33,35,39 ,45,51,52,56,58,5 9,66, and 68 by account strategist mediated amplification.Bridgette ting was performed on specimen [id number] and was resulted on 12/11/2022 1618 EDT by CHRISTIE, LAB INSTRUMENT RESULTS IN 12/11/2022 16:18 T [facility] Performing Lab [facility] 12/11/2022 16:18 T [facility] Scanned Images 12/11/2022 16:18 T [facility] Papanicolaou smear specimen (specimen) CERVIX UTERI STRUCTURE / Unknown 11/25/2022 10:30 EST 11/28/2022 15:31 EST Geno PADILLA PATHOLOGY ORDERABLES [facility] [address] [place] [address] documented in this encounter Visit Diagnoses Diagnosis Encounter for general adult medical examination without abnormal findings Unspecified general medical examination Encounter for screening for malignant neoplasm of cervix Screening for malignant neoplasm of the cervix Encounter for screening for human papillomavirus (HPV) Special screening examination for human papillomavirus (HPV) documented in this encounter Care Teams Group Segment Consultant Relationship Specialty Start Date End Date Pablo Solorio MD PCP - General 02/13/09 12/23/22 Geno Velásquez FNP Lauren [address]OWAN [address] [place] [phone] PCP - General Family Medicine - Primary Care 12/24/22 documented as of this encounter
--- OUTSIDE RECORDS SUMMARY | 2024-06-11 22:30 | XMS_ITS | Encounter Summary ---
Author Organization [facility] Address [address] [place] [address] Care Team Providers Care Manager Grant Name Role Phone Geno Velásquez REHABILITATION INSPECTOR Primary Care Provider [phone] Encounter Details Date Type Department Care Team (Latest Contact Info) Description 03/18/2024 Specialty Pharmacy [facility] [address] [place] [phone] Ney Granados [facility] Refill Coordination Outreach for Headache Social History [...] Info) Description 07/02/2024 11:15 EDT Office Visit [facility] Neurology - [address] [address] Maribel Giraldo MD [address] [place] [address] [address] 2 [place] [phone] documented as of this encounter Visit Diagnoses Not on filedocumented in this encounter Care Teams Manager Grant Relationship Specialty Start Date End Date Geno Velásquez FNP [address] [place] [phone] PCP - General Family Medicine - Primary Care 12/24/22 documented as of this encounter
--- OUTSIDE RECORDS SUMMARY | 2024-06-11 22:30 | XMS_ITS | Referral Summary ---
Author Organization [facility] Address [address] [place] [address] Care Team Providers Care Senior Project Architect Name Role Phone Geno Velásquez CONTROLS OPERATOR MOLDED GOODS Primary Care Provider [phone] Encounters Date Type Department Care Team Description 06/11/2024 Specialty Pharmacy [facility] [address] [place] [address] Ney Granados RPH Refill Coordination Outreach for Headache 05/13/2024 Specialty Pharmacy [facility] [address] [place] [phone] Ney Granados RP Refill Coordination Outreach for Headache 04/15/2024 Telephone [facility] Neurology [address] [address] Maribel Giraldo MD Prior Auth, Medication 04/11/2024 Specialty Pharmacy [facility] [address] [place] [phone] Ney Granados RPH Refill Coordination Outreach for Headache 03/18/2024 Specialty Pharmacy [facility] [address] [place] [phone] Ney Granados RP Refill Coordination Outreach for Headache from Last 3 Months Allergies Active Allergy Reactions Criticality Noted Date [...] Problem Noted Date Diagnosed Date Migraine 09/06/2023 Social History Tobacco Use Types Packs/Day Years [...] on file Sexual Orientation Not on file Last Filed Vital Signs Vital Sign Reading [...] 1120 EDT Body Mass Index - - Functional Status Cognitive Status Response Date of Assessm ent Because of a physical, menta l, or emotional condition, do you have serious difficulty concentrating, remembering, or making decisions? (5 years old or older) Yes 12/01/2010 Plan of Treatment Upcoming Encounters Date Type Department Care Team (Late st Contact Info) Description 07/02/2024 11:15 EDT Office Visit [facility] Neurology - S [address] [address] Maribel Giraldo MD [address] [place] [address], Level 2 [place] [phone] , [place] [address] Jenna Smallwood Personal/Family Self 1990 [facility] [place] [address] Jenna Smallwood Personal/Family Self 1990 [facility] [place] [address] Jenna Smallwood Personal/Family Self [address] [place], [place] [address]k[place] [address] Jenna Smallwood Personal/Family Self [address] [place], [place] [address] [place] [address] Jenna Smallwood Personal/Family Self [address] [place], [place] [address] [place] [address] Jenna Smallwood Personal/Family Self [address] [place], [place] [address]on [facility] [place] [address] Jenna Smallwood Personal/Family Self 1990 [facility] Jose [facility] [place] [address] Advance Directives For more information, please contact: [phone] * Full Code (Latest Code Status on File) Date Activated Date Inactivated Comments 12/01/2010 12:11 12/05/2010 13:17 Care Teams Senior Project Architect Relationship Specialty Start Date End Date Geno Velásquez FNP [address] [place] [address] PCP - General Family Medicine - Primary Care 12/24/22
--- OUTSIDE RECORDS SUMMARY | 2024-06-11 22:30 | XMS_ITS | Encounter Summary ---
Author Organization [facility] Address [address] [place] [address] Care Team Providers Care Boom Cat Operator Name Role Phone Geno Velásquez RANDY Primary Care Provider Reason for Visit * Reason Onset Date Comments Orders (Non Pre-visit) 05/22/2023 Encounter Details Date Type Department Care Team (Late st Contact Info) Description 05/22/2023 Telephone [facility] Neurology - S [address] [phone] Maribel Giraldo MD [address] [place] [address] Level 2 [place] [address] Orders (Non Pre-visit) Social History Tobacco Use Types Packs/Day Years [...] encounter Miscellaneous Notes * Telephone Encounter - Chaitanya Marquez - 05/22/2023 1320 EDT Faxed MRI Head WO order, face sheet and No PA Req documentation to [facility] MRI fax [phone] documented in this encounter Plan of Treatment Upcoming Encounters Date Type Department Care Team (Late st Contact Info) Description 07/02/2024 11:15 EDT Office Visit [facility] Neurology - S [address] [address] Maribel Giraldo MD 1 [facility], Level 2 [place] [phone] documented as of this encounter Visit Diagnoses Not on filedocumented in this encounter Care Teams Boom Cat Operator Relationship Specialty Start Date End Date Geno Velásquez FNP Lauren ROWAN [address] [place] [phone] PCP - General Family Medicine - Primary Care 12/24/22 documented as of this encounter
--- OUTSIDE RECORDS SUMMARY | 2024-06-11 22:30 | XMS_ITS | Encounter Summary ---
Author Organization [facility] Address [address] [place] [address] Care Team Providers Care Patient Case Coordinator Name Role Phone Pablo Solorio MD Primary Care Provider Meka harrington Encounter Details Date Type Department Care Team (Late Contact Info) Description 05/29/[address] [facility] - [place] [facility] [address] [place], [place] [address] Radha Boucher, [facility] [address] [place] [phone] Social History Tobacco Use Types Packs/Day Years [...] Description 07/02/2024 11:[address] [facility] Neurology - S [address] [phone] Maribel Giraldo MD [address] [place] [address], Level [address] [place] [phone] documented as of this encounter Procedures Procedure Name Priority Date/Time Associated Diagnosis Comments PAP TEST- RESULT ONLY Routine 05/29/2012 0:00 EDT documented in this encounter Results * PAP TEST- RESULT ONLY (05/29/2012 0:00 EDT) Pathology Report: CYTOPATHOLOGY REPORT Reports generated via electronic interface contain original data; however they are lacking the format of the original report. Caution should be taken when reading/interpreti ng unformatted reports. Name: ? JEAN CARLOS SMALLWOOD ? Accession #: ? [id number] : ? 1990 (Age: 22) ??F ?Collect Date: ? 05/29/2012 Location: ? [facility] ? Receive Date: ? 05/30/2012 Provider: ?RADHA BOUCHER [facility] Copy to: ? Specimen/Source: ?Pap Test, Source Not Provided, Managed ObjectsPrep Imaging System with manual evaluation Last Menstrual Period: ? 05/19/12 Hormonal/Contracep tive Status: ? Intrauterine device: mirena Previous Gynecologic Pathology: ? ASC-US: 2009 HPV: + 2009 ? SPECIMEN ADEQUACY ? Satisfactory for Evaluation - transformation zone component present GENERAL CATEGORIZATION ? Negative for Intraepithelial Lesion or Malignancy INTERPRETATION ? Shift in anna present suggestive of bacterial vaginosis. ? Document reviewed and electronically signed by: ? DINORAH Cabezas(ASCP) ? Report Date: ??06/06/2012 11:29 End of Report [facility] 05/29/2012 05/30/2012 Radha Boucher 3D TECHNOLOGIST PATHOLOGY ORDERABLES Performing Organization Address City/State/[facility] Co de Phone Number [facility] [address] [place] [address] documented in this encounter Visit Diagnoses Not on filedocumented in this encounter Care Teams Patient Case Coordinator Relationship Specialty Start Date End Date Pablo Solorio MD PCP - General 02/13/09 12/23/22 documented as of this encounter
--- OUTSIDE RECORDS SUMMARY | 2024-06-11 22:30 | XMS_ITS | Encounter Summary ---
Author Organization [facility] Address [address] [place] [address] Care Team Providers Care Lap Cutter Truer Operator Name Role Phone Geno Velásquez RANDY Primary Care Provider [phone] Reason for Visit * Reason Onset Date Comments Medication Management 09/05/2023 Encounter Details Date Type Department Care Team (Late st Contact Info) Description 09/05/2023 Telephone [facility] Neurology - S [place] [address] [place] [phone] Maribel Giraldo MD [address] [place] [address], Level 2 [place] [address] Medication Management Social History Tobacco Use Types Packs/Day Years [...] encounter Miscellaneous Notes * Telephone Encounter - Tanja Cornell RN - 09/05/2023 1331 EST Phone call to patient and told her the process of CGRP injectable PA's and that the specialty pharmacy will reach out to her once a determination by her insurance is made Referral dated 08/22/23 shows 'new' Routing to specialty pharmacy for any other updates if available * Telephone Encounter - Abiodun Elliott - 09/05/2023 1316 EST Pt calls regarding injectable meds for migraines. Pt states that she was supposed to get new meds for migraine, they are injectables but the pt does not remember the name. From last OV notes: Prevention: - Discussed anti-CGRP antibodies including clinical data, side effects, benefits, dosing, and administration, as well as answered questions. Place PA for a CGRP monoclonal antibody I believe this is what the pt is calling about. Please review and call pt to discuss. documented in this encounter Plan of Treatment Upcoming Encounters Date Type Department Care Team (Late st Contact Info) Description 07/02/2024 11:15 EDT Office Visit [facility] Neurology - S [address] [address] Maribel Giraldo MD 1 [facility], Level 2 [place] [phone] documented as of this encounter Visit Diagnoses Not on filedocumented in this encounter Care Teams Lap Cutter Truer Operator Relationship Specialty Start Date End Date Geno Velásquez FNP Lauren ROWAN [address] [place] [phone] PCP - General Family Medicine - Primary Care 12/24/22 documented as of this encounter
--- OUTSIDE RECORDS SUMMARY | 2024-06-11 22:31 | XMS_ITS | Encounter Summary ---
[place] [address] Care Team Providers Care Pumpman Name Role Phone Osmin Mackenzie MD, Pablo Primary Care Provider [phone] Reason for Referral * Diagnostic Test (Routine) - Closed Specialty Diagnoses / Procedures Referred By Patricia wheeler Referred To Contact Radiology Diagnoses Chiari I malformation Procedures MRI Brain wo Contrast MRI Angiogram Head wo Contrast (Generic) Maribel Giraldo MD [facility] [place] [address] [place] [address] Referral ID Status Reason Start Date Expiration Date V isits Requested Visits Authorized [id number] Closed Specialty Service Requested 05/22/2023 11/22/2024 1 1 Reason for Visit * Diagnostic Test (Routine) - Closed Specialty Diagnoses / Procedures Referred By Patricia wheeler Referred To Contact Radiology Diagnoses Chiari I malformation Procedures MRI Brain wo Contrast MRI Angiogram Head wo Contrast (Generic) Maribel Giraldo MD [address] [address] [place] [address] Referral ID Status Reason Start Date Expiration Date V isits Requested Visits Authorized [id number] Closed Specialty Service Requested 05/22/2023 11/22/2024 1 1 Encounter Details Date Type Department Care Team (Latest Contact Info) Description 05/25/2023 10:21 AM EDT - 05/25/2023 11:59 PM EDT [place] [address] Maribel Giraldo MD [address] [address] Chiari I malformation Discharge Disposition: Home Social History Tobacco Use Types Packs/Day Years Used Date Smoking Tobacco: Never Assessed Sex and Gender Information Value Date Recorded Sex Assigned at Not on file Gender Identity Not on file Sexual Orientation Not on file documented as of this encounter Plan of Treatment Not on file documented as of this encounter Procedures Procedure Name Priority Date/Time Associated Diagnosis Comments MRI BRAIN WO CONTRAST Routine 05/25/2023 11:28 AM EDT Chiari I malformation documented in this encounter Results * MRI Brain wo Contrast (05/25/2023 11:28 AM EDT) Anatomical Region Laterality Modality Head Magnetic Resonan ce Impressions 05/25/2023 5:00 PM EDT 1. ??Post suboccipital decompression changes without crowding at the foramen magnum. Otherwise unremarkable exam. I have personally reviewed the image(s) and the resident's interpretation and agree with the findings, Fadi Malloy at 05/25/2023 5:00 PM Thank you for letting us participate in the care of this patient. ??If you are a health care provider and have any questions regarding this report, please contact the number below. ??For patients who have questions please contact the health plant care worker that requested your imaging first. ? Narrative 05/25/2023 5:00 PM EDT EXAMINATION: MRI BRAIN WO CONTRAST CLINICAL HISTORY: Chiari i malformation suboccipital decompression in 2010, with improvement of headaches and subsequent recurrence and progressive worsening after about 5 years. Present headaches almost daily TECHNIQUE: MRI of the brain performed without intravenous contrast administration. COMPARISON: None FINDINGS: Suboccipital decompression changes seen without crowding at the foramen magnum. The ventricles are normal size and configuration. No intracranial masses or mass effect. No diffusion-weighted abnormalities. Normal proximal cranial flow voids. Paranasal sinuses are clear. No chronic microhemorrhages. Normal intracranial midline structures Procedure Note Fadi Malloy MD - 05/25/2023 EXAMINATION: MRI BRAIN WO CONTRAST CLINICAL HISTORY: Chiari i malformation suboccipital decompression in 2010, with improvementof headaches and subsequent recurrence and progressive worsening after about5 years. Present headaches almost daily TECHNIQUE: MRI of the brain performed without intravenous contrast administration. COMPARISON: None FINDINGS: Suboccipital decompression changes seen without crowding at the foramenmagnum. The ventricles are normal size and configuration. No intracranial massesor mass effect. No diffusion-weighted abnormalities. Normal proximal cranial flowvoids. Paranasal sinuses are clear. No chronic microhemorrhages. Normalintracranial midline structures IMPRESSION 1. Post suboccipital decompression changes without crowding at theforamen magnum. Otherwise unremarkable exam. I have personally reviewed the image(s) and the resident's interpretationand agree with the findings, Fadi Malloy at 05/25/2023 5:00 PM Thank you for letting us participate in the care of this patient. If youare a health care provider and have any questions regarding this report,please contact the number below. For patients who have questions please contactthe health plant care worker that requested your imaging first. Maribel Giraldo MD IM MRI ORDERABLES documented in this encounter Visit Diagnoses Diagnosis Chiari I malformation Compression of brain documented in this encounter Care Teams Pumpman Relationship Specialty Start Date End Date Pablo Solorio MD [address] [place] [address] [place] [address] PCP - General 08/17/10 documented as of this encounter
--- OUTSIDE RECORDS SUMMARY | 2024-06-11 22:31 | XMS_ITS | Encounter Summary ---
Author Organization [facility] Address [address] [place] [address] Care Team Providers Care Revenue Cycle Consultant Name Role Phone Jonathan Vazquez MD Primary Care Provider Meka harrington Encounter Details Date Type Department Care Team (Late Contact Info) Description 01/29/2007 Results Only [facility] [address] [place] [address] Kathya Cook MD [address] [place], [place] [phone] Social History Tobacco Use Types Packs/Day Years Used Date Smoking Tobacco: Never Assessed Sex and Gender Information Value Date Recorded Sex Assigned at Not on file Gender Identity Not on file Sexual Orientation Not on file documented as of this encounter Plan of Treatment Upcoming Encounters Date Type Department Care Team (Late Contact Info) Description 07/02/2024 11:15 EDT Office Visit [facility] Neurology - [address] [place] [address] [place] [address] Maribel Giraldo MD [address] [place] [address], [address] [place] [phone] documented as of this encounter Procedures Procedure Name Priority Date/Time Associated Diagnosis Comments SURGICAL PATHOLOGY Routine 01/29/2007 0:00 EDT documented in this encounter Results * SURGICAL PATHOLOGY (01/29/2007 0:00 EDT) Pathologist [facility] Pathology Report: SURGICAL PATHOLOGY REPORT Reports generated via electronic interface contain original data; however they are lacking the format of the original report. Caution should be taken when reading/interpreti ng unformatted reports. Name: ? YOUNG, JEAN CARLOS ? Accession #: ? [id number] ? : ? 1990 (Age: 17) ??F ? Collect Date: ? 01/29/2007 ? Location: ? [facility] ? Receive Date: ? 01/29/2007 ? Provider: KATHYA COOK MD Copy to: JONATHAN VAZQUEZ MD ? Final Pathologic Diagnosis: A. ?Tonsil, right, tonsillectomy: 1. ?Benign reactive follicular lymphoid hyperplasia. B. ?Tonsil, left, tonsillectomy: 1. ?Benign reactive follicular lymphoid hyperplasia. Document reviewed and electronically signed by: MATTEO PANDEY MD Report ??Date: 01/31/2007 18:12 By the signature above, the attending physician certifies that he/she has personally conducted a gross and/or microscopic examination of the described specimens and rendered or confirmed the above diagnosis. Specimen(s) Received: A. ?Right tonsil B. ? Left tonsil Clinical History: ? Chronic tonsillitis Gross Description: ? Received in formalin labelled Young and right tonsil is a 3.2 x 2.2 x 1.4 cm jeff-pink ovoid mucosal lined soft tissue. The cut surfaces are jeff-pink with a cryptic architecture consistent with tonsil tissue. No discrete lesions are identified. A footwear sales representative section is submitted as (A). Received in formalin labelled Young and left tonsil is a 3.2 x 2.5 x 1.2 cm jeff-pink mucosal lined ovoid soft tissue. The cut surfaces are jeff-pink with a cryptic architecture consistent with tonsil tissue. No discrete lesions are identified. A footwear sales representative section is submitted as (B). (Gisel BRIZUELA)/jbm End of Report [facility] 01/29/2007 01/29/2007 15: 16 EDT Kathya Cook MD PATHOLOGY ORDERABLES [facility] [address] [place] [address] documented in this encounter Visit Diagnoses Not on filedocumented in this encounter Care Teams Revenue Cycle Consultant Relationship Specialty Start Date End Date Jonathan Vazquez MD PCP - General 02/13/09 12/23/22 documented as of this encounter
--- OUTSIDE RECORDS SUMMARY | 2024-06-11 22:31 | XMS_ITS | Encounter Summary ---
Author Organization [facility] Address [address] [place] [address] Care Team Providers Care Marine Superintendent Name Role Phone Pablo Solorio MD Primary Care Provider Meka harrington Encounter Details Date Type Department Care Team (Late Contact Info) Description 06/10/2009 Orders Only [facility] - [facility] [address] [place] [phone] Juliet Weaver MD [address] [place] [address] [place] [phone] Social History Tobacco Use Types Packs/Day Years Used Date Smoking Tobacco: Never Assessed Sex and Gender Information Value Date Recorded Sex Assigned at Not on file Gender Identity Not on file Sexual Orientation Not on file documented as of this encounter Plan of Treatment Upcoming Encounters Date Type Department Care Team (Late Contact Info) Description 07/02/2024 11:15 EDT Office Visit [facility] Neurology - [address] [place] [address] [place] [phone] Maribel Giraldo MD [address] [place] [address], [address] [place] [phone] documented as of this encounter Procedures Procedure Name Priority Date/Time Associated Diagnosis Comments HPV DETECTION, HIGH RISK TYPES Routine 06/10/2009 14:42 EDT CYTOPATHOLOGY Routine 06/10/2009 0:00 EDT documented in this encounter Results * HUMAN PAPILLOMA VIRUS DNA TEST (06/10/2009 14:42 EDT) Specimen Description Cervix, ThinPrep vial [facility] Result Positive for one or more of HPV types 16,18,31,33,35 ,39,45,51,52,5 6,58,59, or 68. These high/intermedi ate risk HPV types are associated with dysplasia and some cervical cancers. [facility] Report Status Final 06/25/2009 [facility] 06/10/2009 14:4 2 EDT 06/22/2009 14:42 EDT Juliet Weaver MD MICROBIOLOGY - GENER AL ORDERABLES Performing Organization Address City/State/[facility] Co de Phone Number [facility] [address] [place] [address] * CYTOPATHOLOGY (06/10/2009 0:00 EDT) Pathology Report: CYTOPATHOLOGY REPORT ? Reports generated via electronic interface contain original data; ? however they are lacking the format of the original report. ? Caution should be taken when reading/interpreti ng unformatted reports. ? Name: ? YOUNG, JEAN CARLOS ? Accession #: ? [id number] ? : ? 1990 (Age: 19) ??F ?Collect Date: ? 06/10/2009 ? Location: ? [facility] ? Receive Date: ? 06/11/2009 ? Provider: ?JULIET DEBBY MD ? Copy to: ? Specimen/Source: ?Pap Test, Cervix/Endocervix, ThinPrep Imaging System ? with manual evaluation ? Last Menstrual Period: ? Hormonal/Contracep tive Status: ? Intrauterine device: mirena ? Previous Gynecologic Pathology: ? ASC-US: 5/09 ? Other: ? HPVA - HPV testing requested if ASC-US on the current ThinPrep Pap test. ? SPECIMEN ADEQUACY ? Satisfactory for Evaluation ? - transformation zone component present ? GENERAL CATEGORIZATION ? Epithelial Cell Abnormality ? INTERPRETATION ? Squamous Cell Abnormality - Atypical squamous cells, undetermined ? significance (ASC-US). ? EDUCATIONAL NOTES/RECOMMENDATI ONS ? [facility] recommends following the 2006 Consensus Guidelines for the Management of Women with Abnormal Cervical Cancer Screening Tests (JLGTD, ? 2007;11(4:201-222 ). ??Consensus guidelines are available online at ? www.ASCCP.org. ? Document reviewed and electronically signed by: ? ABDIRAHMANYN BARBARAMAN MD [facility] ? Report Date: ??06/22/2009 09:58 ? End of Report ? [facility] 06/10/2009 06/11/2009 Juliet Weaver MD PATHOLOGY ORDERABLES Performing Organization Address City/State/[facility] Co de Phone Number [facility] [address] [place] [address] documented in this encounter Visit Diagnoses Not on filedocumented in this encounter Care Teams Marine Superintendent Relationship Specialty Start Date End Date Pablo Solorio MD PCP - General 02/13/09 12/23/22 documented as of this encounter
--- OUTSIDE RECORDS SUMMARY | 2024-06-11 22:31 | XMS_ITS | Encounter Summary ---
Author Organization [facility] Address [address] [place] [address] Care Team Providers Care Cam Specialist Name Role Phone Pablo Solorio MD Primary Care Provider Meka harrington Encounter Details Date Type Department Care Team (Latest Contact Info) Description 10/10/2010 11:15 EST - 10/10/2010 23:59 EST Hospital Encounter [facility] [address] [place] [address] Ye Dorsey MD [address] [place] [phone] Discharge Disposition: Home or Self Care Social History Tobacco Use Types Packs/Day Years Used Date Smoking Tobacco: Never Assessed Sex and Gender Information Value Date Recorded Sex Assigned at Not on file Gender Identity Not on file Sexual Orientation Not on file documented as of this encounter Medications at Time of Discharge Medication Sig Dispensed Refills Start Date End Date ALMOTRIPTAN MALATE (AXERT ORAL) Take 12.5 mg by mouth as needed. 09/15/2010 12/27/2010 lorazepam (ATIVAN) 1 mg tablet Take 0.5 Tabs by mouth. Take 1 pill 45 minutes prior to MRI scan. May repeat one time. 2 Tab 0 10/08/2010 11/22/2010 nortriptyline (PAMELOR) 50 mg capsule Take 50 mg by mouth at bedtime. 10/19/2010 topiramate (TOPAMAX) 200 mg tablet Take 200 mg by mouth at bedtime. 09/15/2010 12/27/2010 documented as of this encounter Discharge Disposition Disposition Code Departure Means Destination Home or Self [facility] documented in this encounter Plan of Treatment Upcoming Encounters Date Type Department Care Team (Late st Contact Info) Description 07/02/2024 11:15 EDT Office Visit [facility] Neurology - [address] [address] Maribel Giraldo MD [address] [place] [address], [address] [place] [phone] documented as of this encounter Visit Diagnoses Not on filedocumented in this encounter Care Teams Cam Specialist Relationship Specialty Start Date End Date Pablo Solorio MD PCP - General 02/13/09 12/23/22 documented as of this encounter
--- OUTSIDE RECORDS SUMMARY | 2024-06-11 22:31 | XMS_ITS | Encounter Summary ---
Author Organization [facility] Address [address] [place] [address] Care Team Providers Care Pigment Processor Name Role Phone Jonathan Solorio MD Primary Care Provider Meka harrington Encounter Details Date Type Department Care Team (Latest Contact Info) Description 12/01/2010 5:53 EST - 12/05/2010 11:15 EDT Hospital Encounter [facility] Neurosurgery Unit [address] [place] [address] Ye Dorsey MD [address] [place] [id number] Discharge Disposition: Home or Self Care Social History Tobacco Use Types Packs/Day Years Used Date Smoking Tobacco: Never Assessed Sex and Gender Information Value Date Recorded Sex Assigned at Not on file Gender Identity Not on file Sexual Orientation Not on file documented as of this encounter Last Filed Vital Signs Vital Sign Reading Time Taken Comments Blood Pressure 111/60 12/05/2010 0743 EDT Pulse 112 12/05/2010 0743 EDT Temperature 35.6 ??C (96.1 ??F) 12/05/2010 0743 EDT Respiratory Rate 16 12/05/2010 0743 EDT Oxygen Saturation 98% 12/05/2010 0743 EDT Inhaled Oxygen Concentration - - Weight 72.6 kg (160 lb) 12/01/2010 0642 EST Height 165.1 cm (5' 5) 12/01/2010 0642 EST Body Mass Index 26.63 12/01/2010 0642 EST documented in this encounter Functional Status Cognitive Status Response Date of Assessm ent Because of a physical, menta l, or emotional condition, do you have serious difficulty concentrating, remembering, or making decisions? (5 years old or older) Yes 12/01/2010 documented as of this encounter Discharge Summaries * Tierra Tanner MD - 12/05/2010 0933 EDT Discharge Summary Chief Complaint/Reason for Admission: Headaches Principal/Final Diagnosis: Chiari 1 malformation Principal Procedure: Suboccipital decompression with C1 laminectomy Date: 12/05/10 Prognosis: good Condition at Discharge: Good Hospital Course: 20 y.o. female with past medical history significant for headaches and arm pain. She was evaluated by the neurosurgery service and found to have a Chiari 1 malformation. As such, shewas evaluated and cleared for surgery. The patient was taken to the OR on 12/02/10 by Stephen Dorsey MD for a suboccipital decompression with C1 laminectomy and duraplasty. The patient tolerated the procedure well and was transferred to the PACU postoperatively. On 12/02/10 the patient ambulated with minimal assistance, tolerated a full oral diet, and had adequate pain control with oral medications. She was transferred out of the intensive care unit on 12/03/10. She continues to ambulate well. She was discharged on 12/05/10 with instructions to call the Neurosurgical Office within a week to schedule a follow-up appointment with Ye Dorsey MD in 3-4 weeks. CC: MD Sunita CUEVAS Michael A, MD Discharge Summary Completed: 12/05/10 documented in this encounter Discharge Instructions * Discharge Instructions* Tierra Tanner MD - 12/05/2010 9:38 EDT Diet: Regular Activity: No heavy lifting or strenuous activity for 4 weeks Driving: No driving until you completely healed and you have had your postoperative check with your surgeon,No driving while taking narcotic pain medication Skin/Wound Care: Do not apply any powders or lotions to the area of the wound. Do not rub the wound area. No dressing required. Okay to get wound wet, but pat dry. Do NOT rub the wound area. Let Steri-Strips fall off on their own. Call your provider for problems with stiches, redness, pain, drainage or if stiches pull apart. Bathing: Okay to get wound wet, but pat dry. Do NOT rub the wound area. Shower only Pending Results: Not applicable Symptoms to Call Your Doctor About: Chest pain (angina) Dizziness or fainting Decreased urine output Fever greater than 101.5 or chills Increased or new pain Nausea or vomiting Pain unrelieved by medication Recurrance of symptoms that brought you to the hospital Severe or increasing headache Shortness of breath or rapid breathing Skin rash Signs of infection such as pain, redness, swelling or drainage at procedure or wound site Appointments: See Ye Swanson MD in 3-4 weeks. Please call for an appointment. See Dr. JONATHAN SOLORIO MD in 1 weeks. Please call for an appointment. Neurosurgical Post-operative Instructions DRESSINGS/BANDAGES: Remove all outer dressings 72 hours after your surgery. After that time, you may begin to shower, do not take a bath or submerge the area. You then may leave the area open to the air or if more comfortable, you may cover with a new clean dressing or loose gauze pad, changing daily. Avoid irritation to the area such as contact with tight clothing. Keep incision clean and dry; avoid injury to the area, such as banging. Please call if you develop any redness, swelling, drainageor increasing discomfort at the incision site. If you have any problems during the night or weekends, call the office number for the on-call doctor. For emergencies you should present to your local emergency department or call 911. SUTURES/HARSH: If harsh or sutures were not removed at the time of discharge, they should generally be removed at 7-10 days after surgery unless otherwise instructed. You may begin to shower in 72 hours but do not submerge area such as take a bath. Gently wash area with soap, rinse well and patdry. Please contact your surgeon???s office if you need to have harsh or sutures on your skin incision removed if you do not already have an appointment. Your Primary Doctor can take them out if more convenient for you. DERMABOND/ABSORBABLE SUTURES: Your surgeon may place a waterproof bandage on your incision. You maybegin showering the day after surgery, however please do not take a bath or submerge the area. The Dermabond will begin to flake off slowly, do not pick at your incision or bandage. Please wash the area gently with soap, rinse and pat dry. Call your doctor if drainage develops, redness, swelling orpain occurs at or near your incision. MEDICATIONS: Continue to take your pain medications and/or muscle relaxant, as prescribed - unless you absolutely do not need this. You should always take these medicines with food. Do not drive while taking pain medication or muscle relaxants. You may also have been prescribed steroids or anti-seizure medications and you should carefully follow the directions on your prescription. Call the office if you are having any side-effects. Call the office if you are unable to tolerate any of your medicines or if they do not adequately manage your symptoms. Often medicines can cause constipation, in which case an over the counter stool softener or laxative should correct this side-effect. PLEASE CALL 3 DAYS AHEAD FOR REFILLS OF PAIN MEDICATION. BRACES/COLLARS: Following some back surgeries such as fusion, you may be prescribed a back brace tohelp your back heal properly. You are to wear this whenever out of bed; however you may briefly remove this to shower. Do not sleep in your brace. Keep your brace clean and dry, wear a cotton ayo shirt between your skin and the brace at all times. Do not tighten this brace too tightly; this is simply to support your back and remind you not to bend. Cervical Collars often are prescribed after a fusion. They are to be worn at all times, day and night. You may sleep in whatever position most comfortable. You should have two collars to allow you toget one wet in the shower, keeping the other dry and clean. You are to shower in a collar. You should remove your collar to eat and shave your face. Do not drive while wearing a collar. Please call our office if this collar is causing you increased pain, skin irritation or causing you to not sleep.Call our office if you feel that the collar does not fit properly. Call right away also if you did not receive two collars from the hospital upon discharge. Call if you have fevers, coughing, problems with urination, difficulty swallowing or new leg tenderness. documented in this encounter Medications at Time of Discharge Medication Sig Dispensed Refills Start Date End Date acetaminophen (TYLENOL) 650 mg tablet Take 1 Tablet by mouth every 6 hours. 12/05/2010 ALMOTRIPTAN MALATE (AXERT ORAL) Take 12.5 mg by mouth as needed. 09/15/2010 12/27/2010 DIAZepam (VALIUM) 5 mg tablet Take 1-2 Tabs by mouth every 6 hours as needed for Anxiety. 50 Tab 0 12/05/2010 12/27/2010 docusate sodium (COLACE) 100 mg capsule Take 1 Cap by mouth 2 times daily. 12/05/2010 12/27/2010 NORTRIPTYLINE HCL (NORTRIPTYLINE ORAL) Take 100 mg by mouth at bedtime. 11/22/2010 12/27/2010 oxycodone (ROXICODONE) 5 mg immediate release tablet Take 1-3 Tabs by mouth every 6 hours as needed for Pain (discomfort). 50 Tab 0 12/05/2010 12/27/2010 promethazine (PHENERGAN) 12.5 mg tablet Take 1-2 Tabs by mouth every 6 hours as needed for Nausea. 50 Tab 0 12/05/2010 12/27/2010 senna (SENOKOT) 8.6 mg tablet Take 1-2 Tabs by mouth 2 times daily as needed. 12/05/2010 12/27/2010 topiramate (TOPAMAX) 200 mg tablet Take 200 mg by mouth at bedtime. 09/15/2010 12/27/2010 documented as of this encounter Ordered Prescriptions Prescription Sig Dispensed Refills Start Date End Da te promethazine (PHENERGAN) 12.5 mg tablet Take 1-2 Tabs by mouth every 6 hours as needed for Nausea. 50 Tab 0 12/05/2010 12/27/2010 oxycodone (ROXICODONE) 5 mg immediate release tablet Take 1-3 Tabs by mouth every 6 hours as needed for Pain (discomfort). 50 Tab 0 12/05/2010 12/27/2010 DIAZepam (VALIUM) 5 mg tablet Take 1-2 Tabs by mouth every 6 hours as needed for Anxiety. 50 Tab 0 12/05/2010 12/27/2010 documented in this encounter Discharge Disposition Disposition Code Departure Means Destination Home or Self Care documented in this encounter Progress Notes * Tegtmeyer, Reginald E. - 12/05/2010 1449 EDT CM DC NOTE; 12/05/10 DC w/o CM&SW Dept. services ordered. // Gorge Vance RN #[id number] * Caprice Castro - 12/05/2010 1115 EDT Data: pt with discharge order Action: pt discharge instructions reviewed with pt, prescriptions given, saline lock/IV site d/c'd.Patient education completed. Pt has all belongings and equipment. Response: pt verbalizes understanding of discharge instructions, f/u appts. Discharged to home withmom. CAPRICE CASTRO RN 12/05/2010 11:15 * Bernard Mcdowell MD - 12/05/2010 0705 EDT Brief Neurosurgery Note: Reason for note: Morning rounds S: Doing well, no complaints Blood pressure 98/56, pulse 89, temperature 35.2 ??C (95.4 ??F), resp. rate 16, height 165.1 cm (65), weight 72.576 kg (160 lb), SpO2 99.00%. Awake and alert, fulluy conversant Speech clear Incision CDI No fluid collection A/P: 20 year old female, s/p chiari decompression, doing very well Discharge home today Page #[phone] with questions Bernard Mcdowell MD Resident Neurosurgery 7:05 12/05/2010 * Giovani Longoria - 12/04/2010 0442 EST Neurosurgery S/ Good. Denies nausea. Neck pain better. O/ BP 87/58 Pulse 81 Temp 35.3 ??C (95.5 ??F) Resp 16 SpO2 100% Awakens easily to voice Oriented to name, place, date Full EOM Follows commands Strength full bilaterally in engineering administrator Incision dry, intact A/P 20-year-old female POD#3 s/p suboccipital craniectomy for Chiari I decompression. Neurologically intact. Post-operative pain continues to improve. Will plan to discharge home tomorrow. Giovani Longoria MD Neurosurgery #[id number] (continuous process tanner rotary drum pager) * So Dumont RN - 12/03/2010 1437 EST 1435: Patient transferred off unit to M6 with transport via wheelchair. Report called prior to M6. * Andria Perez OT - 12/03/2010 1307 EST [facility] Occupational Therapy Initial Evaluation/Discontinue Note Date of Service: 12/03/2010 Reason for Referral: Evaluate and treat Precautions: Activity as tolerated, regular diet, up with assistance Notify physician if: 1.) SBP is less than 90 or greater than 180 mmHg. 2.) HR is less than 50 or greater than 120 bpm. 3.) RR is less than 8 or greater than 38 rpm. 4.) Temp is greater than 38.5 degress Celsius. SUBJECTIVE: My Mom can help me Pain: No pain reported during the interview. Reported stiffness in neck in area of incision. OBJECTIVE: Patient Profile: Rene Smallwood is a right hand dominant 20 y.o. female admitted on 12/01/2010 secondary to *Suboccipital decompression, C1 laminectomy, duraplasty The patient lives at [address] [place] [address] [place] [address] History of Present Illness/Injury: patient with h/o type 1 Chiari Malformation, s/p suboccipital craniectomy, bilateral C1 laminectomy and duroplasty on 12/01/10. 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 Bilateral C1 laminectomy, Duroplasty H/o type 1 Chiari malformation per MRI. Past: Per paper chart, patient has h/o asthma. No past surgical history on file. Medications: Medications reviewed Body Functions and Performance Skills: Cardiovascular/Respiratory Systems Function: Vital Signs: Vital signs have been stable with interventions and were not monitored. Mental Functions: No problems noted during assessment. Sensory Functions: Touch: intact to light touch all cervical dermatomes Vision: WNL Hearing: WNL Neuromusculoskeletal and Movement Related Functions: Range of Motion: WNL BUEs; neck NE due to surgery Strength: BUEs not fully tested due to neck surgery precautions, but no impairments noted during functional movement. Skin and Related Structure Functions: Skin Functions: no problems noted; neck incision not visualized Areas of Occupation and Performance Skills: Basic Activities of Daily Living: Feeding: I by report Grooming: I by report except will need assist with hair care due to incision site Lower Body Dressing: able to don socks I in sitting Toileting: reports I with hygiene. Toilet Transfer: reports S with transfers to/from commode. Instrumental Activities of Daily Living: Not evaluated due to not relevant at this time; patient's mother will assist as needed. Rest and Sleep: No problems noted by report. Education: No problems noted patient graduated high school. Work: States she will be out of work about 12 weeks due to surgical precautions. Leisure: No problems noted patient enjoys reading, crocheting. Social Participation: No problems noted by report. Outcome Measures: Not evaluated due to not relevant to this assessment. Informed Consent: The patient consented to the occupational therapy evaluation. The patient agrees to and understandsthe occupational therapy treatment plan and goals. Interventions completed today: Occupational therapy today at 1330. Evaluation: 10 minutes Intervention: 0 minutes Intervention included: NA Patient/Family Education: Not applicable Team Communication: Spoke with nursing prior to and following assessment. ASSESSMENT: Patient is a 20 year old female admitted 12/01/10 s/p type 1 Chiari malformation withsuboccipital craniectomy, bilateral C1 laminectomy and duroplasty on 12/01/10 . Pt presents with performance skill andbody function impairments of functional mobility which is being addressed by PT. Patient reports noconcerns regarding ADL or IADL as her mother will be able to assist as needed, in context of surgical precautions. OT not indicated in this setting. GOALS: Short Term Goals: NA Transport Conductor Goals: NA PLAN: Intervention: Discontinue occupational therapy at [facility]. Further Data: none Patient/Family Education: none Discharge Plan: Home with 24 hour assist when medically ready. Pager: [phone] ANDRIA PEREZ OT, 12/03/2010, 13:07 * Antonio Jha, PT - 12/03/2010 1240 EST [facility] Physical Therapy Initial/Discontinue Evaluation Note Date of Service: 12/03/2010 Reason for Referral: Evaluate and treat Precautions: activity as tolerated, up with assist SUBJECTIVE: This feels so good to walk Pain: Location: neck Intensity: 2/10 throughout session Frequency: constant Quality: Stiff/tight neck Aggravating factors: Unable to turn head due to discomfort and surgical site Alleviating factors: Patient reports that ice and pain medications help - nursing assisting patientwith this at end of session OBJECTIVE: Patient Profile: Patient is a 20 y.o. 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 12/01/10 PROCEDURE: 1. Suboccipital decompression, C1 laminectomy and duraplasty. 2. Microdissection. Past: No past medical history on file. No past surgical history on file. Medications: Medications reviewed Arousal, Attention, and Cognition: Orientation: Alert Oriented to person, place, and time Cardiopulmonary: Vitals stable with examination and mobility. No dizziness of lightheadedness with activity. O2 100 on room air, HR 88-100 BP 109/70 Integumentary/Anthropometric Characteristics: Palpation/Observation: Skin: surgical site with intact dressing and local edema Posture: No problem noted Range of Motion and Joint Integrity: Active Range of Motion: Within normal limits Upper Quarter: Left Upper Extremity: Right Upper Extremity: Cervical Spine: N/E formally due to recent surgery. Patient with limitations in neck motion currently. Taught compensation techniques during mobility due to this. Lower Quarter: Left Lower Extremity: Right Lower Extremity: Lumbar Spine: N/E Muscle Performance: Strength: Not evaluated secondary to recent surgery. Able to move all limbs through full ROM without assistance, and able to perform functional tasks as below. Sensation, Reflexes, and Nerve Integrity: Light Touch Sensation: Upper Quarter: Intact C2-T1 Lower Quarter: Intact for lower extremities Neuromotor Function/Development: No problems noted Balance, Locomotion, and Gait: Balance: Initial unsteadiness with first ambulation but improved stability during ambulation with no loss ofbalance observed. Supervision is recommended given recent surgery and effects of medication and altered environment on patient function. Locomotion: Not evaluated as wheelchair mobility does not apply to this patient. Gait: Assistive device/distance/assist/deviations: 500 feet with initial minimal contact assist and then no physical assistance with reciprocal gait. Stairs: assist needed/number of steps: up and down 4 steps with rail with supervision. Self-Care, Home Management, Work, and Leisure: Mobility evaluation as follows: Rolling: independent Supine to sit: independent Sit to supine: independent Sit to stand: independent Stand to sit: independent Bed to chair: independent Chair to bed: N/E Informed Consent: The patient consented to the physical therapy evaluation. The patient agrees to and understands the physical therapy treatment plan and goals. Interventions Completed Today: Physical Therapy today at: 13:15 Examination: 20 minutes Intervention: 0 minutes Intervention included: No interventions completed today Patient/Family Education: Topic: Role of therapy Safety Stairs Assistance with mobility Compensation techniques given current limitations with neck ROM Learner: patient Method: verbal and demonstration Barriers to Learning: none noted Outcome: verbalized understanding and returned demonstration Team Communication: ASSESSMENT: Upper Quarter Screen: Positive findings do not have an impact on the patient's function and requireno monitoring, treatment, or detailed examination with skilled PT. Patient will have follow up withMD on incision and if ongoing neck ROM deficits as edema decreases then could use PT followup. Physical Therapy Diagnosis: This patient status post surgery presents with a PT diagnosis of altered mobility level and decreased neck ROM and initial deficits with functional balance. Physical Therapy Prognosis: Overall patient is mobilizing well and given current presentation, ongoing hospitalization with altered environment and new medications as well as limitations in neck motion I would recommend ongoing supervision with activity. Patient does not required skilled PT follow up at this time, but if new issues develop please rerefer. Also as incision heals and neck edema decreases she is expected to naturally regain neck ROM bu if there are issues with this then PT as an outpatient could be considered. Patient has 24 hour assist at home as she is currently unable to carefor herself and young daughter independently. Based on mobility level today this is recommended D/C plan when medically ready. While in hospital patient should be encouraged to ambulate with nursing assistance. PLAN: Discontinue Physical Therapy Recommended Discharge Destination: Home with caregiver Recommended Discharge Services: Physical therapy follow-up per physician Recommended Equipment Needs: No equipment necessary Other recommendations: No other consults recommended at this time Pager: [phone] ANTONIO JHA, PT 12/03/2010 12:40 * Ye Dorsey - 12/03/2010 0622 EST Neurosurgery 24 Hr Events/ Pain management issues overnight Subjective/ Incisional pain, otherwise no complaints. No nausea Objective/ Blood pressure 94/46, pulse 64, temperature 36.4 ??C (97.5 ??F), temperature source Tympanic, resp.rate 16, height 165.1 cm (65), weight 72.576 kg (160 lb), SpO2 100.00%. In: 240 (240 P.O.) Out: 350 (350 Urine) Current facility-administered medications Medication Route Frequency ??? oxycodone (ROXICODONE) immediate release tablet 5-15 mg Oral Q3H PRN ??? DIAZepam (VALIUM) tablet 5-10 mg Oral Q6H PRN ??? acetaminophen (TYLENOL) tablet 650 mg Oral Q6H ??? lactated ringers (LR) infusion Intravenous CONTINUOUS ??? topiramate (TOPAMAX) tablet 200 mg Oral QHS ??? nortriptyline (PAMELOR) capsule 100 mg Oral QHS ??? sodium chloride 0.9 % with KCl 20 mEq/L infusion Intravenous CONTINUOUS ??? morphine injection 1-5 mg Intravenous Q2H PRN ??? docusate sodium (COLACE) capsule 100 mg Oral BID ??? bisacodyl (DULCOLAX) suppository 10 mg Rectal Q48H PRN ??? senna (SENOKOT) tablet 1-2 Tab Oral BID PRN ??? sodium phosphate (FLEET) enema 1 Enema Rectal Daily PRN ??? magnesium hydroxide (MILK OF MAGNESIA) 400 mg/5 mL suspension 30 mL Oral Daily PRN ??? promethazine (PHENERGAN) tablet 12.5-25 mg Oral Q4H PRN ??? promethazine (PHENERGAN) suppository 12.5-25 mg Rectal Q4H PRN ??? promethazine (PHENERGAN) injection 12.5-25 mg Intramuscular Q4H PRN ??? ondansetron (PF) (ZOFRAN) injection 2-8 mg Intravenous Q3H PRN ??? almotriptan (AXERT) tablet 12.5 mg Oral Daily PRN Exam: Alert, awake Verbalizes appropriately, fluently Oriented to name, date, place Naming intact Glasses Follows commands x4 Face symmetric No drift Incision, clean, dry intact Assessment/ POD#2, s/p chiari 1 decompression, doing well, neurologically intact Plan/ Anticipate D/C home in 1-2 days. Continue pain control Advance diet Advance activity Transfer to floor [facility] Tanner MD Staff: Doing very well. Improved pain control. No N/V. Plan as above. Sunita * Christianne Duran RN - 12/02/2010 5159 EST 12/02/10 recvd report and assumed care of patient. Rene is alert and oriented x3 and complaining ofpain in her neck - States that it is a 04/03, medicated with oxycodone and tylenol with no relief. Additional oxycodone given with pm meds - also gave morphine 2 mg in hopes that pain will get under control. Ice pack applied to neck and will continue to monitor. SDRenee UMAÑA [id number] : pain level down to a 4 - Rene is very communicative and much more mobil. Continued to medicate for pain - assisted oob to commode - taking more po fluids - ice bag freshened and applied to incision. Will continue to monitor and assist with pain control. Ceasar RN 0400 awaken for pain medication - states that her head is really hurting - po meds given and iv morphine given. Ice pack refreshed - Ceasar RN 0424 Did not end up giving morphine - rene stated she was feeling a little better after the oxycodone and getting up to the br. Taking po fluids and eating turkmen ice. Will continue to monitor. Ceasar UMAÑA * Tierra Tanner MD - 12/02/2010 1819 EST Neurosurgery Patient seen and examined. Alert, awake, sitting up in bed. Verbalizes appropriately, fluently Oriented to place, year [facility], 2010 Follows commands x4 Conjugate gaze, tracks appropriately Tongue midline Face symmetric Midline posterior incision clean/dry/intact. UE Strength Deltoid (C5) 5/5 Bicep (C5, 6) 5/5 Tricep (C6, 7) 5/5 Waterproofer (C8) 5/5 Post-operative day 1 s/p chiari I malformation repair (suboccipital decompression, C1 laminectomy and duraplasty). Transfer when bed available. Tierra Tanner MD * Glynn Varela - 12/02/2010 0559 EST Neurosurgery Progress Note Chief Complaint: Chiari Principle Dx: Chiari 24H events: POd#1 s/p chiari decompression Subjective: Good morning; neck feels tense, denies any nausea Objective: Medications: topiramate 200 mg Oral QHS nortriptyline 100 mg Oral QHS docusate sodium 100 mg Oral BID ceFAZolin (ANCEF) 2 g Intravenous Q8H Vital Signs: Blood pressure 119/66, pulse 64, temperature 36.1 ??C (97 ??F), temperature source Tympanic, resp. rate 15, height 165.1 cm (65), weight 72.576 kg (160 lb), SpO2 98.00%. BP Min: 113/65 Max: 124/67 Temp Av.7 ??C (98 ??F) Min: 36 ??C (96.8 ??F) Max: 37.5 ??C (99.5 ??F) Pulse Av.5 Min: 64 Max: 73 Resp Av Min: 14 Max: 22 SpO2 Av % Min: 97 % Max: 100 % Height Av.1 cm (65) Min: 165.1 cm (65) Max: 165.1 cm (65) Weight Av.576 kg (160 lb) Min: 72.576 kg (160 lb) Max: 72.576 kg (160 lb) I/O: In: 2483.8 (2433.8 I.V.) Out: 1345 (1345 Urine) Tubes/Lines/Drains Exam: Awake, alert Oriented x3 Speech clear Motor grossly intact Incision C/D/I; no fluid collection Assessment and Plan 20 y.o. female, LOS: 1 day POD#1 s/p chiari decompression; neuro intact - d/c a line - d/c peck - transfer to the floor - continue pain/nausea control as needed - continue current mx GLYNN VARELA MD Neurosurgery resident 12/02/2010 5:40 Page 1304 with questions * Sapna Euceda RN - 12/01/2010 1613 EST Stable post-op. Mother and sister at bedside and updated. Neck incision WNL.Active Multi-Disciplinary problems: HOSPITAL ORIENTATION/SAFETY [690218] (12/01/10) PSYCHOSOCIAL [002701] (12/01/10) DAILY CARE [221403] (12/01/10) PAIN [064408] (12/01/10) SKIN INTEGRITY [496466] (12/01/10) DISCHARGE PLANNING [378276] (12/01/10) FLUID AND ELECTROLYTE BALANCE [097146] (12/01/10) RESPIRATORY FUNCTION/OXYGENATION [098074] (12/01/10) NUTRITION/DIET [235661] (12/01/10) MOBILITY [407003] (12/01/10) ELIMINATION [043186] (12/01/10) NEUROLOGICAL STATUS [754033] (12/01/10) Data: Stable post op. Action: Meds given for pain include tylenol,oxycodone,& Morphine. Response: Pain posterior neck and head otherwise no problem. Sapna Euceda RN 12/01/2010 19:17 * Giovani Longoria - 12/01/2010 1300 EST Neurosurgery Post-Op Check S/ Complains of neck pain; No nausea O/ BP 117/59 Pulse 73 Temp(Src) 36 ??C (96.8 ??F) (Tympanic) Resp 14 SpO2 100% Awakens easily Opens eyes to voice Oriented to name, date, place Naming intact Full EOM Pupils equal, round and reactive Follows commands x 4 A/P 20-year-old female POD#0 s/p suboccipital craniectomy and C1 laminectomy for Chiari I decompression. Doing well. Continue pain control (tylenol, narcotic, and muscle relaxant). Post-op antibiotics x 3 doses. Monitor in ICU overnight. Keep normotensive. ANN and SCD for DVT prophylaxis. Advance diet and activity as tolerated. Giovani Longoria MD Neurosurgery #[id number] (continuous process tanner rotary drum pager) * Felicity Luo - 12/01/2010 0649 EST Small healing pimple on the right side of her neck. Not directly in line with op site documented in this encounter H&P Notes * Inpatient, Physician - 12/01/2010 0000 EST * Inpatient, Physician - 12/01/2010 0000 EST documented in this encounter Procedure Notes * Inpatient, Physician - 12/01/2010 0000 ESTAssociated Order(s): IMPLANT RECORD - SCANNED * Inpatient, Physician - 12/01/2010 0000 ESTAssociated Order(s): ECG REPORT - SCANNED documented in this encounter Consult Notes * Corrina Ahumada - 12/03/2010 1147 EST Case Management Assessment Working Diagnosis/Presenting Problem: Suboccipital craniectomy and C1 laminectomy for Chiari I decompression on 12/01. Living Arrangements: Lives in [facility] with her mother and 22 month old daughter. Functional Status (psychosocial and physical): Patient reports having a headache everyday since shewas a 11 yo. This morning, she reports feeling better w/o headache. Patient works full-time at [employer]. Social Supports: Patient's mother will be main caregiver also, sisters will help with post d/c care. Existing Community Resources: PCP is Dr. Jonathan Solorio Advanced Directives/DPOA: N Cultural/Spiritual Needs: Insurance/Financial Needs: [employer] Man[employer] Medicaid. On short term disability from [employer]. Transportation Needs: Patient's mother to provide Patient Goals: Go home to see her daughter Assessment and Discharge Care Plan: 20 yo female admitted for scheduled suboccipital craniectomy and C1 laminectomy for Chiari I decompression. Patient is looking forward to not having a headache everyday. She is well supported at home, living with her mother for the time being. Patient understandsher physical restrictions while she is recovering and reports that her family will be helping her. Patient is receiving short term disability through her employer; [employer]. Patient did not haveany concerns at this time. CM on floor to follow for any d/c needs that may arise. Corrina Ahumada, [facility] 2146 documented in this encounter Nursing Notes * Inpatient, Physician - 12/01/2010 0000 EST documented in this encounter OR Notes * OR Surgeon - Ye Dorsey - 12/01/2010 1857 EST OPERATIVE REPORT SERVICE DATE: 12/01/2010 SURGEON: Ye Dorsey MD DRAFTER CIVIL ENGINEERING: Giovani Longoria MD PREOPERATIVE DIAGNOSIS: Chiari malformation, type 1. POSTOPERATIVE DIAGNOSIS: Chiari malformation, type 1. PROCEDURE: 1. Suboccipital decompression, C1 laminectomy and duraplasty. 2. Microdissection. COMPLICATIONS: None ESTIMATED BLOOD LOSS: 150 mL. ANESTHESIA: General endotracheal anesthetic. INDICATIONS: Ms Smallwood presents with symptoms consistent with Chiari malformation. She has a type 1 Chiari malformation on MRI. I discussed with her the role of surgery in the form of a suboccipital decompression and C1 laminectomy. She would like to proceed with this as her symptoms have become increasingly intolerable. Risks of bleeding, infection, spinal fluid leak, brain injury, stroke, paralysis, coma and were described. The possibility that this does not work to relieve some or all of her symptoms was discussed. A consent was signed. NARRATIVE: After informed consent and proper identification, the patient was taken to the operatingroom where general endotracheal anesthetic was introduced. Antibiotics were administered. The patient's head was placed in 3-point fixation and she was turned prone on gel rolls in a tucked position. Her hair was parted. The suboccipital region was prepped and draped in the usual sterile fashion. A linear incision was made from the inion down to the C2 spinous process. This was carried down to the fascia and the midline raphe identified and the occipital bone was stripped of overlying muscle.We identified the C1 lamina as well as the superior aspect of the C2 lamina and stripped muscle from here as well. We placed self-retaining retractors. We identified the pericranium above, but it wasvery thin and I did not feel it would be adequate for our graft. We therefore chose a piece of Durepair that soaked on the back table as we proceeded. We identified the foramen magnum. I used a craniotome with a footplate to perform an occipital craniectomy based at the foramen magnum. This was enlarged with a double-action rongeur and Kerrison punches. We removed the C1 lamina and the superior aspect of the C2 lamina. I then opened the dura in aY shape, preserving the arachnoid below. We tacked this laterally and then opened the arachnoid, and under the microscope, teased the tonsils apart and coagulated the most inferior aspect to bring them slightly higher within our field. Under the microscope, we then sewed our patch without incident. This was done using a running 4-0 Nurolon. It appeared watertight. We valsalva'ed the patient twice and did not see any leakage of spinal fluid. We then placed a piece of Duragen, followed by Tisseel, followed by a closure with a combination of running 0 Vicryl, 2-0 Vicryl, inverted 3-0 Vicryl in the galea and Rapide in the skin. There were no apparent complications. The patient's head was taken out of 3-point fixation. She was delivered to the surgical intensive care unit in stable condition. Unless otherwise noted, there were no complications, no blood loss, no cultures obtained, no specimens removed, and no drains retained. ADDENDUM: Microdissection was used during the decompression. Dictated by: Ye Dorsey MD Ye Dorsey MD 09 57 PM / md Confirmation: [id number] Dictation ID: [id number] * Anesthesia Procedure Notes - Inpatient, Physician - 12/01/2010 0000 EST * Anesthesia Procedure Notes - Inpatient, Physician - 12/01/2010 0000 EST * Anesthesia Preprocedure Evaluation - Inpatient, Physician - 12/01/2010 0000 EST * OR PreOp - Inpatient, Physician - 12/01/2010 0000 EST * OR PreOp - Inpatient, Physician - 12/01/2010 0000 EST documented in this encounter Miscellaneous Notes * Plan of Care - Caprice Castro - 12/05/2010 0758 EDT Problem: PAIN Goal: Patient's Pain And Discomfort Are Adequately Managed Outcome: Ongoing Data: Pt reports 5/10 posterior neck pain and tenderness. Action: Pt medicated with PRN oxy, see MAR. Response: Will continue to monitor. CAPRICE CASTRO RN 12/05/2010 7:58 * Plan of Care - Mikayla Orr - 12/04/2010 1837 EST Problem: DISCHARGE PLANNING Goal: Patient's Continuum Of Care Needs Are Met Outcome: Ongoing Active Multi-Disciplinary problems: HOSPITAL ORIENTATION/SAFETY [914634] (12/01/10) PAIN [930620] (12/01/10) DISCHARGE PLANNING [750645] (12/01/10) Data: Pt and team planning for d/c home tomorrow. Action: Discussed plan for d/c with pt. Response: Pt eager to get home tomorrow, has 2yo daughter at home who she is eager to see. Pt will need education about activity restrictions given young child at home. Mikayla Orr RN 12/04/2010 18:36 * Plan of Care - Charity Valles - 12/04/2010 0250 EST Problem: FLUID AND ELECTROLYTE BALANCE Goal: Fluid And Electrolyte Balance Are Achieved/Maintained Outcome: Ongoing Active Multi-Disciplinary problems: HOSPITAL ORIENTATION/SAFETY [943997] (12/01/10) PSYCHOSOCIAL [213458] (12/01/10) DAILY CARE [238371] (12/01/10) PAIN [434414] (12/01/10) SKIN INTEGRITY [276327] (12/01/10) DISCHARGE PLANNING [821517] (12/01/10) FLUID AND ELECTROLYTE BALANCE [258974] (12/01/10) RESPIRATORY FUNCTION/OXYGENATION [043118] (12/01/10) NUTRITION/DIET [474460] (12/01/10) MOBILITY [845130] (12/01/10) ELIMINATION [444259] (12/01/10) NEUROLOGICAL STATUS [082268] (12/01/10) Data: Pt is A&Ox3, drowsy, contact guard OOB, voiding in bathroom. At 2345 BP 86/59. Action: Encouraged PO intake, notified MD Longoria Response: Pt has no c/o dizziness or feeling light headed with ambulation. Will continue to assess and monitor. CHARITY VALLES RN 12/04/2010 2:42 * Plan of Care - Lalo Bang - 12/03/2010 1833 EST Problem: MOBILITY Goal: Mobility/Activity Is Maintained At Optimum Level For Patient Outcome: Ongoing Active Multi-Disciplinary problems: HOSPITAL ORIENTATION/SAFETY [552377] (12/01/10) PSYCHOSOCIAL [461336] (12/01/10) DAILY CARE [225270] (12/01/10) PAIN [829550] (12/01/10) SKIN INTEGRITY [615970] (12/01/10) DISCHARGE PLANNING [229695] (12/01/10) FLUID AND ELECTROLYTE BALANCE [858859] (12/01/10) RESPIRATORY FUNCTION/OXYGENATION [120255] (12/01/10) NUTRITION/DIET [036276] (12/01/10) MOBILITY [370629] (12/01/10) ELIMINATION [970915] (12/01/10) NEUROLOGICAL STATUS [732315] (12/01/10) Data: Patient ambulating with a contact guard. Patient ringing for assistance before getting out ofbed. Action: Patient is steady on her feet. Response: Continue to assist patient with ambulation as needed. Lalo Bang RN 12/03/2010 18:32 * Plan of Care - So Dumont RN - 12/03/2010 1356 EST Problem: DAILY CARE Goal: Daily Care Needs Are Met And Function Maintained Intervention: Encourage self care whenever possible Active Multi-Disciplinary problems: HOSPITAL ORIENTATION/SAFETY [593631] (12/01/10) PSYCHOSOCIAL [752888] (12/01/10) DAILY CARE [636601] (12/01/10) PAIN [596542] (12/01/10) SKIN INTEGRITY [408803] (12/01/10) DISCHARGE PLANNING [275162] (12/01/10) FLUID AND ELECTROLYTE BALANCE [549732] (12/01/10) RESPIRATORY FUNCTION/OXYGENATION [197001] (12/01/10) NUTRITION/DIET [230068] (12/01/10) MOBILITY [993900] (12/01/10) ELIMINATION [678698] (12/01/10) NEUROLOGICAL STATUS [902510] (12/01/10) Data: Patient pod 2 doing well after surgery. Has been awaiting bed on M6. Able to increase independence with ADLs as appropriate. Action: Encouraged patient to perform self care as safe. Still asking her to call for assistance with standing due to narcotics. Response: Patient tolerating performing cares and asking for assistance when appropriate So Winters RN 12/03/2010 13:53 * Plan of Care - Christianne Duran RN - 12/03/2010 0234 EST Problem: PSYCHOSOCIAL Goal: Demonstrates Ability To [place] With Hospitalization Active Multi-Disciplinary problems: HOSPITAL ORIENTATION/SAFETY [537179] (12/01/10) PSYCHOSOCIAL [383557] (12/01/10) DAILY CARE [683005] (12/01/10) PAIN [541855] (12/01/10) SKIN INTEGRITY [726743] (12/01/10) DISCHARGE PLANNING [511405] (12/01/10) FLUID AND ELECTROLYTE BALANCE [819568] (12/01/10) RESPIRATORY FUNCTION/OXYGENATION [766663] (12/01/10) NUTRITION/DIET [190325] (12/01/10) MOBILITY [283885] (12/01/10) ELIMINATION [885529] (12/01/10) NEUROLOGICAL STATUS [954679] (12/01/10) Data: in patient - post op - awake from family and 27 month baby girl Action: encouraged quiet restful environment, allowed oppurtunities for verbalization of feeling. Medicated sufficiently so pain was controlled Response: after pain was controlled - patient was much more verbal and open with conversation. Willcontinue to provide emotional support. Ceasar Duran RN 12/03/2010 2:31 * Plan of Care - So Dumont RN - 12/02/2010 1325 EST Problem: HOSPITAL ORIENTATION/SAFETY Goal: Free From Accidental Injury Intervention: Assess for fall risk Implement Level 1 fall precautions and interventions as indicated. So Dumont RN Registered Nurse Plan of Care 12/02/2010 1321 Problem: NEUROLOGICAL STATUS Goal: Mental status/cognition is maintained/returned to baseline Active Multi-Disciplinary problems: PAIN [031479] (11/27/10) FLUID AND ELECTROLYTE BALANCE [890096] (11/27/10) NEUROLOGICAL STATUS [311588] (11/27/10) Data: Patient post op chiari malformation. Action: Neuro checks done q1 hour overnight. Patient remained intact. Changed to q4 hours with transfer orders this morning. Response: Patient has maintained intact neuro status. Awaiting available bed for transfer. * Anesthesia Post-[place] - Sera Starr - 12/02/2010 1014 EST Post Anesthesia Evaluation Date of Service: 12/02/2010 The patient has been evaluated and assessed. If present, post anesthetic events are documented below. Procedure detail: Level of Consciousness: Awake BP 104/58 Pulse 64 Temp(Src) 36.1 ??C (97 ??F) (Tympanic) Resp 16 Ht 165.1 cm (65) Wt 72.576 kg (160 lb) BMI 26.63 kg/m2 SpO2 99% Vital Signs: Stable Pulmonary Status: On O2 Post Op Pain: Taking PO/IV pain meds with good effect Ambulatory Status: Out of bed in chair Additional follow up needed: No Perioperative events: General Events: None Recall: Absent SERA STARR 12/02/2010 10:14 * Plan of Care - Leydi Fofana - 12/02/2010 0434 EST Problem: PAIN Goal: Patient's Pain And Discomfort Are Adequately Managed Intervention: Assess pain level Pain is to be assessed: admission, every shift, prior to medication administration, within two hours after pain medication administration, before transfer or discharge and every two hours while on BRICK PAVER or epidural. D: Pt complaining of headache, surgical pain, and overall feeling stiff. See flow sheet for pain assessments. A: Pt was medicated throughout night with oxycodone and tylenol PRN. Was repositioned for comfort. R: Pt had restful night. Pain was well managed with the medications listed above. Will continue to monitor. Leydi Fofana RN 12/02/10 @ 0427. * Plan of Care - Sera Ladd RN - 12/01/2010 2226 EST Problem: NEUROLOGICAL STATUS Goal: Mental status/cognition is maintained/returned to baseline Active Multi-Disciplinary problems: HOSPITAL ORIENTATION/SAFETY [419746] (12/01/10) PSYCHOSOCIAL [673993] (12/01/10) DAILY CARE [300622] (12/01/10) PAIN [795604] (12/01/10) SKIN INTEGRITY [420607] (12/01/10) DISCHARGE PLANNING [661492] (12/01/10) FLUID AND ELECTROLYTE BALANCE [460424] (12/01/10) RESPIRATORY FUNCTION/OXYGENATION [089275] (12/01/10) NUTRITION/DIET [102031] (12/01/10) MOBILITY [846114] (12/01/10) ELIMINATION [962051] (12/01/10) NEUROLOGICAL STATUS [122552] (12/01/10) Action: pt alert awake and oriented. Neurostatus stable. See flow sheet for details Response: stable neurostatus at this time. Continue neuro checks as ordered Sera Ladd RN 12/01/2010 22:34 * Plan of Care - Sera Ladd RN - 12/01/2010 0646 EST Problem: PAIN Goal: Patient's Pain And Discomfort Are Adequately Managed Active Multi-Disciplinary problems: HOSPITAL ORIENTATION/SAFETY [196666] (12/01/10) PSYCHOSOCIAL [379974] (12/01/10) DAILY CARE [918348] (12/01/10) PAIN [842775] (12/01/10) SKIN INTEGRITY [588749] (12/01/10) DISCHARGE PLANNING [925202] (12/01/10) FLUID AND ELECTROLYTE BALANCE [094114] (12/01/10) RESPIRATORY FUNCTION/OXYGENATION [111652] (12/01/10) NUTRITION/DIET [102523] (12/01/10) MOBILITY [772252] (12/01/10) ELIMINATION [693662] (12/01/10) NEUROLOGICAL STATUS [433918] (12/01/10) Data: pt having incisional pain at surgical site. With stiffness in neck. Pain is a 6 to7 level Action: pain meds ordered given and muscle relaxant also given Response: pt resting with more comfort at this time. Plan to monitor pain and provide medications as ordered by Md. Pain down to a 4 to 5 Sera Ladd RN 12/01/2010 22:30 * Brief Op Note - Giovani Longoria - 12/01/2010 1141 EST BRIEF OP NOTE PRE-OP DIAGNOSIS = Chiari I malformation POST-OP DIAGNOSIS = Chiari I malformation PROCEDURE = Suboccipital craniecomy. Bilateral C1 laminectomy, Duroplasty SURGEON = Dr. Dorsey DRAFTER CIVIL ENGINEERING = Dr. Longoria ANESTHESIA = GET + Local COMPLICATIONS = None FINDINGS = Low lying cerebellar tonsils EBL = 100cc SPECIMENS/CULTURES = None DRAINS = None SKIN = Rapide DISPO = Stable Giovani Longoria MD Neurosurgery #[id number] (continuous process tanner rotary drum pager) * Scanned Note-Null - Inpatient, Physician - 12/01/2010 0000 EST * Scanned Note-Null - Inpatient, Physician - 12/01/2010 0000 EST * Scanned Note-Null - Inpatient, Physician - 12/01/2010 0000 EST * Scanned Note-Null - Inpatient, Physician - 12/01/2010 0000 EST * Scanned Note-Null - Inpatient, Physician - 12/01/2010 0000 EST documented in this encounter Plan of Treatment Upcoming Encounters Date Type Department Care Team (Late st Contact Info) Description 07/02/2024 11:15 EDT Office Visit [facility] Neurology - [address] [address] Maribel Giraldo MD [address] [place] [address], [address] [place] [phone] documented as of this encounter Procedures Procedure Name Priority Date/Time Associated Diagnosis Comments IMPLANT RECORD - SCANNED 12/07/2010 22:15 EDT ECG REPORT - SCANNED 12/07/2010 22:15 EDT RESPIRATORY CARE EVALUATION ONLY Routine 12/02/2010 0:07 EST RESPIRATORY CARE EVALUATION ONLY Routine 12/02/2010 0:07 EST MRSA PCR Routine 12/01/2010 14:05 EST RESPIRATORY CARE EVALUATION ONLY Routine 12/01/2010 13:53 EST TYPE AND SCREEN Routine 12/01/2010 7:07 EST documented in this encounter Results * ECG REPORT - SCANNED (12/07/2010 22:15 EDT) 12/07/2010 22:1 5 EDT Narrative Procedure Note Inpatient, Physician - 12/01/2010 0:00 EST Physician Inpatient MD PROCEDURE/MINOR S URGICAL ORDERABLES * IMPLANT RECORD - SCANNED (12/07/2010 22:15 EDT) 12/07/2010 22:1 5 EDT Narrative Procedure Note Inpatient, Physician - 12/01/2010 0:00 EST Physician Inpatient MD PROCEDURE/MINOR S URGICAL ORDERABLES Performing Organization Address City/[facility] Co de Phone Number POINT OF CARE * MRSA MOLECULAR DETECTION (12/01/2010 14:05 EST) Specimen Description Nasal [facility] Result NEGATIVE for Methicillin Resistant Staphylococcus aureus DNA by PCR. [facility] 12/01/2010 14:0 5 EST 12/01/2010 14:05 EST Ye Dorsey MD MICROBIOLOGY - GENER AL ORDERABLES Performing Organization Address [facility] de Phone Number [facility] [address] [place] [address] * TYPE AND SCREEN (12/01/2010 7:07 EST) ABO O [facility] Rh Factor Positive [facility] Antibody Screen Negative [facility] Comment:SPECIMEN EXPIRES AT 23:59 ON 12/04/2010 12/01/2010 7:07 EST 12/01/2010 7:07 EST Ye Dorsey MD BLOOD BANK TESTS Performing Organization Address [facility] de Phone Number [facility] [address] [place] [address] documented in this encounter Visit Diagnoses Not on filedocumented in this encounter Administered Medications Inactive Administered Medications - up to 3 most recent administrations Medication Order MAR Action Action Date Dose Rate Site acetaminophen (TYLENOL) tablet 325-650 mg 325-650 mg, oral, EVERY 4 HOURS PRN, Starting on 12/01/10 at 1211, Until Adriana 12/02/10 at 2217, Pain, Fever, Routine Given 12/02/2010 19:53 EST 650 mg Given 12/02/2010 14:55 EST 650 mg Given 12/02/2010 8:45 EST 650 mg acetaminophen (TYLENOL) tablet 650 mg 650 mg, oral, EVERY 6 HOURS, First dose (after last modification) on Mon12/03/10 at 0000, Until Discontinued, Routine Given 12/05/2010 6:53 EDT 650 mg Given 12/04/2010 23:56 EST 650 mg Given 12/04/2010 18:45 EST 650 mg almotriptan (AXERT) tablet 12.5 mg 12.5 mg, oral, DAILY PRN, Starting on Mon12/01/10 at 1337, Until Mon12/05/10 at 1317, Other, Muscle spasm, Routine Given 12/02/2010 0:37 EST 12.5 mg Given 12/01/2010 20:26 EST 12.5 mg ceFAZolin (ANCEF) 2 g in sodium chloride 0.9% 50 mL IVPB 2 g, intravenous, Administer over 30 Minutes, EVERY 8 HOURS, 3 doses, First dose on Mon12/01/10 at 1245, Last dose on Mon12/02/10 at 0800, Routine Given 12/02/2010 8:44 EST 2 g Given 12/02/2010 0:33 EST 2 g Given 12/01/2010 13:32 EST 2 g ceFAZolin (ANCEF) pre-op syringe 1 g 1 g, intravenous, Administer over 10 Minutes, PRE-OP ONCE, 1 dose, On Mon12/01/10 at 0645, Routine, Pre-Op DOS Rx Approved Given by Other 12/01/2010 8:13 EST 1 g DIAZepam (VALIUM) tablet 5-10 mg 5-10 mg, oral, EVERY 6 HOURS PRN, Starting on Mon12/02/10 at 1024, Until Mon12/05/10 at 1317, Anxiety, Routine Given 12/02/2010 23:40 EST 5 mg Given 12/02/2010 17:40 EST 5 mg Given 12/02/2010 10:41 EST 5 mg docusate sodium (COLACE) capsule 100 mg 100 mg, oral, 2 TIMES DAILY, First dose on Mon12/01/10 at 1230, Until Discontinued, Routine Given 12/05/2010 9:37 EDT 100 mg Given 12/04/2010 20:03 EST 100 mg Given 12/04/2010 9:01 EST 100 mg lactated ringers (LR) infusion at 25 mL/hr, intravenous, CONTINUOUS, Starting on Mon12/01/10 at 0645, Until Mon12/03/10 at 0625, Routine Given by Other 12/01/2010 6:45 EST 25 mL/hr morphine injection 1-5 mg 1-5 mg, intravenous, EVERY 2 HOURS PRN, Starting on Mon12/01/10 at 1211, Until Mon12/05/10 at 1317, Pain, discomfort, Routine Given 12/02/2010 21:31 EST 2 mg Given 12/02/2010 10:23 EST 1 mg Given 12/02/2010 7:02 EST 2 mg nortriptyline (PAMELOR) capsule 100 mg 100 mg, oral, AT BEDTIME, First dose on Mon12/01/10 at 2100, Until Discontinued, Routine Given 12/04/2010 20:03 EST 10 0 mg Given 12/03/2010 20:29 EST 100 mg Given 12/02/2010 21:16 EST 100 mg ondansetron (PF) (ZOFRAN) injection 2-8 mg 2-8 mg, intravenous, EVERY 3 HOURS PRN, Starting on Mon12/01/10 at 1211, Until Mon12/05/10 at 1317, Nausea, Routine Given 12/03/2010 7:41 EST 4 mg Given 12/02/2010 10:20 EST 4 mg Given 12/02/2010 1:35 EST 4 mg oxycodone (ROXICODONE) immediate release tablet 5 mg 5 mg, oral, NOW X1, 1 dose, On Mon12/02/10 at 2345, Routine Given 12/02/2010 23:45 EST 5 mg oxycodone (ROXICODONE) immediate release tablet 5-15 mg 5-15 mg, oral, EVERY 4 HOURS PRN, Starting on Mon12/01/10 at 1211, Until Mon12/02/10 at 1024, Pain, discomfort, Routine Given 12/02/2010 8:44 EST 15 mg Given 12/02/2010 4:18 EST 10 mg Given 12/02/2010 0:38 EST 10 mg oxycodone (ROXICODONE) immediate release tablet 5-15 mg 5-15 mg, oral, EVERY 3 HOURS PRN, Starting on Mon12/02/10 at 1024, Until Mon12/05/10 at 1317, Pain, discomfort, Routine Given 12/05/2010 7:48 EDT 10 mg Given 12/05/2010 4:13 EDT 10 mg Given 12/04/2010 21:53 EST 10 mg senna (SENOKOT) tablet 1-2 Tab 1-2 Tablet, oral, 2 TIMES DAILY PRN, Starting on Mon12/03/10 at 0000, Until 12/05/10 at 1317, Constipation, Routine Given 12/04/2010 20:03 EST 2 Table ts Given 12/03/2010 11:00 EST 2 Tablets sodium chloride 0.9 % with KCl 20 mEq/L infusion at 75 mL/hr, intravenous, CONTINUOUS, Starting on Mon12/01/10 at 1230, Until Mon12/03/10 at 0625, Routine Rate Documented 12/02/2010 13:00 EST 75 mL/hr Rate Documented 12/02/2010 12:00 EST 75 mL/hr Rate Documented 12/02/2010 11:00 EST 75 mL/hr topiramate (TOPAMAX) tablet 200 mg 200 mg, oral, AT BEDTIME, First dose on Mon12/01/10 at 2100, Until Discontinued, Routine Given 12/04/2010 20:03 EST 20 0 mg Given 12/03/2010 20:29 EST 200 mg Given 12/02/2010 21:15 EST 100 mg documented in this encounter Historical Medications * This list may reflect changes made after this encounter. Medication Sig Dispensed Refills Start Date End Date acetaminophen (TYLENOL) 650 mg tablet Take 1 Tablet by mouth every 6 hours. 12/05/2010 senna (SENOKOT) 8.6 mg tablet Take 1-2 Tabs by mouth 2 times daily as needed. 12/05/2010 12/27/2010 docusate sodium (COLACE) 100 mg capsule Take 1 Cap by mouth 2 times daily. 12/05/2010 12/27/2010 added in this encounter Active and Recently Administered Medications Due to Daylight Saving Time, this section may contain times in both EST and EDT. Scheduled Medication Order 12/03/2010 12/04/2010 12/05/2010 acetaminophen (TYLENOL) tablet 650 mg 650 mg, oral, EVERY 6 HOURS, First dose (after last modification) on Mon12/03/10 at 0000, Until Discontinued, Routine 0658 (Given - Provider: Christianne Duran RN)1400 (Given - Provider: So Dumont RN)1741 (Given - Provider: Lalo Bang)2351 (Given - Provider: Charity Valles) 0626 (Given - Provider: Charity Valles)1200 (Hold - Provider: Mikayla Orr - Reason: Other - Comment: pt asleep)1418 (Given - Provider: Mikayla Orr)1845 (Given - Provider: Mikayla Orr)2356 (Given - Provider: Charity Valles) 0653 (Given - Provider: Charity Valles) docusate sodium (COLACE) capsule 100 mg 100 mg, oral, 2 TIMES DAILY, First dose on Mon12/01/10 at 1230, Until Discontinued, Routine 1100 (Given - Provider: So Dumont RN)2028 (Given - Provider: Charity Valles) 900 (Given - Provider: Mikayla Orr)2002 (Given - Provider: Charity Valles) 09 (Given - Provider: Caprice Castro) nortriptyline (PAMELOR) capsule 100 mg (CANCELED) 100 mg, oral, AT BEDTIME, First dose on Mon12/01/10 at 2100, Until Discontinued, Routine 2028 (Given - Provider: Charity Valles) 2002 (Given - Provider: Charity Valles) topiramate (TOPAMAX) tablet 200 mg (CANCELED) 200 mg, oral, AT BEDTIME, First dose on Mon12/01/10 at 2100, Until Discontinued, Routine 2028 (Given - Provider: Charity Valles) 2002 (Given - Provider: Charity Valles) PRN Medication Order 12/03/2010 12/04/2010 12/05/2010 DIAZepam (VALIUM) tablet 5-10 mg 5-10 mg, oral, EVERY 6 HOURS PRN, Starting on Adriana 12/02/10 at 1024, Until 12/05/10 at 1317, Anxiety, Routine ondansetron (PF) (ZOFRAN) injection 2-8 mg (CANCELED) 2-8 mg, intravenous, EVERY 3 HOURS PRN, Starting on 12/01/10 at 1211, Until 12/05/10 at 1317, Nausea, Routine 0741 (Given - Provider: So Dumont RN) oxycodone (ROXICODONE) immediate release tablet 5-15 mg 5-15 mg, oral, EVERY 3 HOURS PRN, Starting on Adriana 12/02/10 at 1024, Until 12/05/10 at 1317, Pain, discomfort, Routine 0410 (Given - Provider: Christianne Duran, LEEROY)0700 (Given - Provider: Christianne Duran RN)1100 (Given - Provider: So Dumont, LEEROY)1400 (Given - Provider: So Dumont RN)1630 (Given - Provider: Lalo Bang)1750 (Given - Provider: Lalo Bang)2351 (Given - Provider: Charity Valles) 0420 (Given - Provider: Charity Valles)0901 (Given - Provider: Mikayla Orr)1419 (Given - Provider: Mikayla Orr)1851 (Given - Provider: Mikayla Orr)2153 (Given - Provider: Charity Valles) 0413 (Given - Provider: Charity Valles)0748 (Given - Provider: Caprice Castro) promethazine (PHENERGAN) tablet 12.5-25 mg(Linked Group 1) 12.5-25 mg, oral, EVERY 4 HOURS PRN, Starting on Mon12/01/10 at 1211, Until 12/05/10 at 1317, Nausea, Routine senna (SENOKOT) tablet 1-2 Tab 1-2 Tablet, oral, 2 TIMES DAILY PRN, Starting on Mon12/03/10 at 0000, Until 12/05/10 at 1317, Constipation, Routine 1100 (Given - Provider: So Dumont RN) 2002 (Given - Provider: Charity Valles) Linked Groups Order Group 1: promethazine (PHENERGAN) tablet 12.5-25 mgJump to med 12.5-25 mg, oral, EVERY 4 HOURS PRN, Starting on Mon12/01/10 at 1211, Until 12/05/10 at 1317, Nausea, Routine Or promethazine (PHENERGAN) suppository 12.5-25 mg (CANCELED) 12.5-25 mg, rectal, EVERY 4 HOURS PRN, Starting on Mon12/01/10 at 1211, Until Mon12/03/10 at 0626, Nausea, Routine Or promethazine (PHENERGAN) injection 12.5-25 mg (CANCELED) 12.5-25 mg, intramuscular, EVERY 4 HOURS PRN, Starting on Mon12/01/10 at 1211, Until 12/05/10 at 1317, Nausea, Routine documented in this encounter Orders Medications Ordered That Garrett ht Not Have Been Administered Count Last Ordered Date First Ordered Date acetaminophen (TYLENOL) solu tion 325-650 mg 1 12/01/2010 acetaminophen (TYLENOL) supp ository 325-650 mg 1 12/01/2010 almotriptan (AXERT) tablet 12.5 mg 1 2010 bisacodyl (DULCOLAX) suppository 10 mg 1 ceFAZolin (ANCEF) 2,000 mg i n sodium chloride 0.9 % 50 mL IVPB 1 12/01/2010 diazepam (VALIUM) injection IV or IM 1 05/2011 hydrALAzine (APRESOLINE) injection 10 mg 1 12/01/2010 labetalol (TRANDATE) injection 5-10 mg 1 magnesium hydroxide (MILK OF MAGNESIA) 400 mg/5 mL suspension 30 mL 1 12/01/2010 promethazine (PHENERGAN) inj ection 12.5-25 mg 1 12/01/2010 promethazine (PHENERGAN) sup pository 12.5-25 mg 1 12/01/2010 promethazine (PHENERGAN) tablet 12.5-25 mg 1 12/01/2010 sodium phosphate (FLEET) enema 1 Enema 1 Nursing Count Last Ordered Date First Orde red Date INSERT PECK CATHETER 1 12/01/[address] SEQUENTIAL COMPRESSION DEVICE 1 12/01 PLACE ANN HOSE 1 12/01/2010 PT Count Last Ordered Date First Orde red Date PT EVALUATION AND TREAT 1 12/01/2010 Respiratory Care Count Last Ordered Date First Ordered Date RESPIRATORY CARE EVALUATION ONLY 3 12/03/19 11 12/01/2010 Admission Count Last Ordered Date First Orde red Date NOTIFY PPS OF DISCHARGE COMPLETE 1 12/06/19 11 PPS NOTIFICATION OF SENDING PATIENT OFF THE UNIT 1 12/03/2010 ADMIT TO INPATIENT 2 12/01/2010 PPS NOTIFICATION OF PATIENT ARRIVAL ON UNIT 1 12/01/2010 TEACHING SERVICE 1 12/01/2010 Transfer Count Last Ordered Date First Orde red Date TRANSFER PATIENT 1 12/02/2010 Discharge Count Last Ordered Date First Orde red Date DISCHARGE PATIENT 1 12/05/2010 documented in this encounter Care Teams Pigment Processor Relationship Specialty Start Date End Date Jonathan Solorio MD PCP - General 02/13/09 12/23/22 documented as of this encounter
--- OUTSIDE RECORDS SUMMARY | 2024-06-11 22:31 | XMS_ITS | Encounter Summary ---
Author Organization [facility] Address [address] [place] [address] Care Team Providers Care Senior National Account Manager Name Role Phone Pablo Solorio MD Primary Care Provider Meka harrington Encounter Details Date Type Department Care Team (Late st Contact Info) Description 01/16/2008 Results Only [facility] - Maple conversion [address] [place] [address] Christianne [place], [place] [phone] Social History Tobacco Use Types Packs/Day Years [...] Visit [facility] Neurology - [address] [place] [address] [place], [place] [address] Maribel Giraldo MD [address] [place] [address], [address] 2 [place] [phone] documented as of this encounter Procedures Procedure Name Priority Date/Time Associated Diagnosis Comments CYTOPATHOLOGY Routine 01/16/2008 0:00 EDT documented in this encounter Results * CYTOPATHOLOGY (01/16/2008 0:00 EDT) Pathology Report: CYTOPATHOLOGY REPORT Reports generated via electronic interface contain original data; however they are lacking the format of the original report. Caution should be taken when reading/interpreti ng unformatted reports. Name: ? GAVINO, JEAN CARLOS ? Accession #: ? [id number] : ? 1990 (Age: 17) ??F ?Collect Date: ? 01/16/2008 Location: ? [facility] ? Receive Date: ? 01/17/2008 Provider: ?CHRISTIANNE TRINIDAD CNM Copy to: ? Specimen/Source: ?ThinPrep Pap Test, Cervix/Endocervix, processed on [place] ThinPrep Imaging System, with manual evaluation Last Menstrual Period: ? 11/08/07 Menstrual/Pregnanc y Status: ? Other: ? Additional clinical information: 1st pap smear ? SPECIMEN ADEQUACY ? Satisfactory for Evaluation - transformation zone component present - scant squamous epithelial component secondary to excessive mucus GENERAL CATEGORIZATION ? Negative for Intraepithelial Lesion or Malignancy INTERPRETATION ? Shift in anna present suggestive of bacterial vaginosis. ? Document reviewed and electronically signed by: ? Christianne Becerra, SCT(ASCP) ? Report Date: ??01/22/2008 10:22 End of Report GUILLERMO LANDON 01/16/2008 01/17/2008 Christianne Trinidad CNM PATHOLOGY ORDERABLES GUILLERMO LANDON [address] [place] [address] documented in this encounter Visit Diagnoses Not on filedocumented in this encounter Care Teams Senior National Account Manager Relationship Specialty Start Date End Date Pablo Solorio MD PCP - General 02/13/09 12/23/22 documented as of this encounter
--- OUTSIDE RECORDS SUMMARY | 2024-06-11 22:31 | XMS_ITS | Encounter Summary ---
Author Organization [facility] Address [address] [place] [address] Care Team Providers Care Access Rn Name Role Phone Pablo Solorio MD Primary Care Provider Meka harrington Reason for Visit * Reason Onset Date Comments Prior Auth, Other (i.e. radiology, etc.) 011 Encounter Details Date Type Department Care Team ([facility] Contact Info) Description 11/22/2010 Telephone [facility] NEUROSURGERY [address] [place], [place] [phone] Ye Dorsey MD [address] [place] [phone] Prior Auth, Other (i.e. radiology, etc.) Social History Tobacco Use Types Packs/Day Years Used Date Smoking Tobacco: Never Assessed Sex and Gender Information Value Date Recorded Sex Assigned at Not on file Gender Identity Not on file Sexual Orientation Not on file documented as of this encounter Miscellaneous Notes * Telephone Encounter - Arlen Keen - 11/22/2010 0848 EST Patient scheduled for Inpatient Surgery on 11/29/2010; Dr. Ye Dorsey; CPT Code 47905; Dx Code 348.4; [place] Medicaid; Per [place] Medicaid website patient active and eligible TCN [id number]; no precert needed for Inpatient Surgery. documented in this encounter Plan of Treatment Upcoming Encounters Date Type Department Care Team ([facility] Contact Info) Description 07/02/2024 11:15 EDT Office Visit [facility] Neurology - [address] [address] Maribel Giraldo MD 1 [facility], Level 2 [place] [phone] documented as of this encounter Visit Diagnoses Not on filedocumented in this encounter Care Teams Access Rn Relationship Specialty Start Date End Date Pablo Solorio MD PCP - General 02/13/09 12/23/22 documented as of this encounter
--- OUTSIDE RECORDS SUMMARY | 2024-06-11 22:31 | XMS_ITS | Clinical Summary ---
Author Organization [place] [address] Care Team Providers Care Washroom Cleaner Name Role Phone Osmin Mackenzie MD, Pablo Primary Care Provider [phone] Social History Tobacco Use Types Packs/Day Years Used Date Smoking Tobacco: Never Assessed Sex and Gender Information Value Date Recorded Sex Assigned at Not on file Gender Identity Not on file Sexual Orientation Not on file Plan of Treatment Health Maintenance Due Date Last Done Comments HIV screen 2007 Hepatitis C Screening 2007 Hepatitis B vaccine (0-59 yrs) (1) 01/21/2008 Tdap adult 01/21/2008 Tetanus vaccine 01/21/2008 HPV test 2019 PAP Smear 2019 Covid-19 Vaccine ( season) 2024 Influenza (Flu) vaccine (1 o f 1 - Influenza standard series) 05/26/2024 Care Teams Washroom Cleaner Relationship Specialty Start Date End Date Pablo Solorio MD [address] [place], [place] [phone] PCP - General 08/17/10
--- OUTSIDE RECORDS SUMMARY | 2024-06-11 22:31 | XMS_ITS | Encounter Summary ---
Author Organization [facility] Address [address] [place] [address] Care Team Providers Care Alligator Trapper Name Role Phone Pablo Solorio MD Primary Care Provider Meka harrington Encounter Details Date Type Department Care Team (Late st Contact Info) Description 11/25/2010 Pre-Procedure Orders Encounter [facility] Neurosurgery - [facility] [address] [place], [place] [address] Emilie Kearney PA-C [address] [facility] 4 [place] [phone] Social History Tobacco Use Types Packs/Day Years Used Date Smoking Tobacco: Never Assessed Sex and Gender Information Value Date Recorded Sex Assigned at Not on file Gender Identity Not on file Sexual Orientation Not on file documented as of this encounter Plan of Treatment Upcoming Encounters Date Type Department Care Team (Late st Contact Info) Description 07/02/2024 11:15 EDT Office Visit [facility] Neurology - [address] [phone] Maribel Giraldo MD [address] [place] [address] [address] [place] [phone] documented as of this encounter Visit Diagnoses Not on filedocumented in this encounter Care Teams Alligator Trapper Relationship Specialty Start Date End Date Pablo Solorio MD PCP - General 02/13/09 12/23/22 documented as of this encounter
--- OUTSIDE RECORDS SUMMARY | 2024-06-11 22:31 | XMS_ITS | Encounter Summary ---
Author Organization [facility] Address [address] [place] [address] Care Team Providers Care Vocational Rehabilitation Supervisor Name Role Phone Pablo Solorio MD Primary Care Provider Meka harrington Reason for Visit * Reason Onset Date Comments Medication Management 10/07/2010 Encounter Details Date Type Department Care Team (Late st Contact Info) Description 10/07/2010 Telephone [facility] Neurosurgery - [facility] [address] [place], [place] [phone] Yuliet Jasmine, composition board press operator Management Social History Tobacco Use Types Packs/Day Years Used Date Smoking Tobacco: Never Assessed Sex and Gender Information Value Date Recorded Sex Assigned at Not on file Gender Identity Not on file Sexual Orientation Not on file documented as of this encounter Ordered Prescriptions Prescription Sig Dispensed Refills Start Date End Da te lorazepam (ATIVAN) 1 mg tablet Take 0.5 Tabs by mouth. Take 1 pill 45 minutes prior to MRI scan. May repeat one time. 2 Tab 0 10/08/2010 11/22/2010 documented in this encounter Miscellaneous Notes * Telephone Encounter - Yuliet Jasmine RN - 10/08/2010 1434 EST Ativan pre med phoned to pharmacy [address], [place], [place] per patient request. * Telephone Encounter - Raisa Fleming PA - 10/08/2010 1311 EST Patient may have a prescription for premeds. Ordered. * Telephone Encounter - Yuliet Jasmine RN - 10/07/2010 5442 EST Patient requesting pre medication for MRI scheduled Monday10/09/10. She has received lorazepam inthe past. documented in this encounter Plan of Treatment Upcoming Encounters Date Type Department Care Team (Late st Contact Info) Description 07/02/2024 11:15 EDT Office Visit [facility] Neurology - [address] [phone] Maribel Giraldo MD [address] [place] [address], [address] [place] [phone] documented as of this encounter Visit Diagnoses Not on filedocumented in this encounter Care Teams Vocational Rehabilitation Supervisor Relationship Specialty Start Date End Date Pablo Solorio MD PCP - General 02/13/09 12/23/22 documented as of this encounter
--- OUTSIDE RECORDS SUMMARY | 2024-06-11 22:31 | XMS_ITS ---
Author Organization [facility] Address [address] [place] [address] Care Team Providers Care Refrigerating Engineer Name Role Phone Geno Velásquez FIRE BOSS Primary Care Provider [phone] Headache Status:Enrolled (Active) Start date:09/06/2023 Enrollment date:09/06/2023 Enrollment reason:Referred by provider Current support & services provided:Clinical Management, Refill Management, Benefits and PA Management Linked medications:galcanezumab-gnlm (Active) Linked problems:Migraine (Active) Continued Care and Services Coordination
--- OUTSIDE RECORDS SUMMARY | 2024-06-11 22:31 | XMS_ITS | Encounter Summary ---
Author Organization [facility] Address [address] [place] [address] Care Team Providers Care Enamel Finisher Name Role Phone Pablo Solorio MD Primary Care Provider Meka harrington Reason for Visit * Reason Onset Date Comments Medication Management 11/25/2010 Encounter Details Date Type Department Care Team (Late Contact Info) Description 11/25/2010 Telephone [facility] Neurosurgery - [address] [place] [address] [place] [address] Yuliet Jasmine RN Medication Management Social History Tobacco Use Types Packs/Day Years Used Date Smoking Tobacco: Never Assessed Sex and Gender Information Value Date Recorded Sex Assigned at Not on file Gender Identity Not on file Sexual Orientation Not on file documented as of this encounter Miscellaneous Notes * Telephone Encounter - Yuliet Jasmine RN - 11/25/2010 0873 EST Patient is at Ped's office for Pre-op physical and they are wondering if it is ok to update Tdap, guardasil and meningitis immunizations. Also they report her PT is 11/INR 1.1 and PTT is 32. She is aChiari Mal;formation scheduled for surgery Monday11/29/10. documented in this encounter Plan of Treatment Upcoming Encounters Date Type Department Care Team (Late Contact Info) Description 07/02/2024 11:15 EDT Office Visit [facility] Neurology - [address] [address] Maribel Giraldo MD 1 [facility], [address] [place] [phone] documented as of this encounter Visit Diagnoses Not on filedocumented in this encounter Care Teams Enamel Finisher Relationship Specialty Start Date End Date Pablo Solorio MD PCP - General 02/13/09 12/23/22 documented as of this encounter
--- OUTSIDE RECORDS SUMMARY | 2024-06-11 22:31 | XMS_ITS | Encounter Summary ---
Author Organization [facility] Address [address] [place] [address] Care Team Providers Care Sap Plant Maintenance Consultant Name Role Phone Unavailable Primary Care Provider Unavailabl e Encounter Details Date Type Department Care Team (Late Contact Info) Description 02/04/2009 Orders Only [facility] Laboratory Services - [facility] [place] [address] [place], [place] [address] Saniya Mullins [address] [phone] Social History Tobacco Use Types Packs/Day Years Used Date Smoking Tobacco: Never Assessed Sex and Gender Information Value Date Recorded Sex Assigned at Not on file Gender Identity Not on file Sexual Orientation Not on file documented as of this encounter Plan of Treatment Upcoming Encounters Date Type Department Care Team (Late Contact Info) Description 07/02/2024 11:15 EDT Office Visit [facility] Neurology - [address] [place] [address] [place] [phone] Maribel Giraldo MD [address] [place] [address], [address] [place] [phone] documented as of this encounter Procedures Procedure Name Priority Date/Time Associated Diagnosis Comments CYTOPATHOLOGY Routine 02/04/2009 0:00 EDT documented in this encounter Results * CYTOPATHOLOGY (02/04/2009 0:00 EDT) Pathology Report: CYTOPATHOLOGY REPORT ? Reports generated via electronic interface contain original data; ? however they are lacking the format of the original report. ? Caution should be taken when reading/interpreti ng unformatted reports. ? Name: ? YOUNG, JEAN CARLOS ? Accession #: ? [id number] ? : ? 1990 (Age: 19) ??F ?Collect Date: ? 02/04/2009 ? Location: ? [facility] ? Receive Date: ? 02/05/2009 ? Provider: ?ANEA LELONG CNM ? Copy to: ? Specimen/Source: ?Pap Test, Cervix/Endocervix, ThinPrep Imaging System ? with manual evaluation ? Last Menstrual Period: ? Hormonal/Contracep tive Status: ? Intrauterine device: Mirena ? SPECIMEN ADEQUACY ? Satisfactory for Evaluation ? - transformation zone component present ? GENERAL CATEGORIZATION ? Epithelial Cell Abnormality ? INTERPRETATION ? Squamous Cell Abnormality - Atypical squamous cells, undetermined ? significance (ASC-US). ? Shift in anna present suggestive of bacterial vaginosis. ? EDUCATIONAL NOTES/RECOMMENDATI ONS ? [facility] recommends following the 2006 Consensus Guidelines for the Management of Women with Abnormal Cervical Cancer Screening Tests (JLGTD, ? 2007;11(4):201-222 ). ??Consensus guidelines are available online at ? www.ASCCP.org. ? Document reviewed and electronically signed by: ? Mariaelena L. Elizondo, MD ? Report Date: ??02/10/2009 14:50 ? End of Report ? GUILLERMO LANDON 02/04/2009 02/05/2009 Saniya Mullins CNM PATHOLOGY ORDERABLES [facility] [address] [place] [address] documented in this encounter Visit Diagnoses Not on filedocumented in this encounter
--- OUTSIDE RECORDS SUMMARY | 2024-06-11 22:31 | XMS_ITS | Encounter Summary ---
Author Organization [facility] Address [address] [place] [address] Care Team Providers Care Vfx Artist Name Role Phone Pablo Solorio MD Primary Care Provider Meka harrington Reason for Visit * Reason Comments Headache Encounter Details Date Type Department Care Team (Latest Contact Info) Description 10/19/2010 13:[address] [facility] Neurosurgery - [place] [address], [place] [id number] Ye Dorsey MD [address] [place] [phone] Chiari malformation (Primary Dx) Social History Tobacco Use Types Packs/Day Years Used Date Smoking Tobacco: Never Assessed Sex and Gender Information Value Date Recorded Sex Assigned at Not on file Gender Identity Not on file Sexual Orientation Not on file documented as of this encounter Last Filed Vital Signs Vital Sign Reading Time Taken Comments Blood Pressure 110/70 10/19/2010 1340 EST Pulse 80 10/19/2010 1340 EST Temperature - - Respiratory Rate 18 10/19/2010 1340 EST Oxygen Saturation - - Inhaled Oxygen Concentration - - Weight - - Height - - Body Mass Index - - documented in this encounter Patient Instructions * Patient Instructions* Yuliet Jasmine RN - 10/19/2010 15:07 EST We would like to take this opportunity to welcome you to the Division of Neurosurgery at [facility], and briefly introduce ourselves. The division is comprised of five Neurosurgeons: Dr. Saundra Grimaldo, Dr. Owen Pretty, Dr. Ye Dorsey, Dr. Samuel Angeles and Dr. Sravanthi Mari.We also have three physician assistants: Dennise Hays, Raisa Fleming, and Emilie Castro. Additionally, we have a number of resident physicians who assist in clinic, the operating room and inpatient management, under the supervision of the attending neurosurgeons. And of course, Xochitl, our office nurse, and Mani our medical office specialist, are an integral part of our team! As a neurosurgical office, we treat many different diagnoses. We treat patients with brain, spine, and peripheral nerve disorders. Some (but not all) of the operations we perform are as follows: Brain Surgeries Spine Surgeries Traumatic brain injury Herniated discs Tumors Tumors Aneurysms Degenerative disorders Vascular Malformations Trigeminal Neuralgia Peripheral Nerve Surgeries Deep Brain Stimulation Compressive disorders (i.e. Carpal Tunnel Syndrome) Stereotactic Biopsies Tumors Shunt Placements Traumatic Injuries We also place baclofen pumps ans spinal cord stimulators in conjunction with other providers. As a surgical office, we evaluate and treat you, the patient. We will give you our honest, expert opinion, on whether or not surgery will help you get better. Should you specific condition not be surgical, we will assist you in returning to your primary care doctor for you pain control, or refer you to other specialist who may help you. In case that you do receive surgery, we will prescribe medication for you. However, it should be made clear that as surgical consultation service, we do not regularly prescribe medications for all patients, nor do we prescribe for skilled nursing periods. Following surgery, all patients will be contactedby our nurse, for follow up. Our nurse will also be in touch with your primary care provider to update him/her on your status. You will have regularly scheduled postoperative visits wit you surgeon, and/ or the physician family and divorce legal assistant, to monitor your progress and answer any further questions you may have. Please read and review our attached pain medication contract. Should we prescribe any narcotic painmedication for you, you will be required to sign it. Thank you for taking the time to meet us. If you have any questions regarding scheduling, please contact one of our Clinical Office Assistants: Mirlande (for Dr. Grimaldo & Dennise), Lauren (for Dr. Pretty & Emilie), Deborah (for DrTay Knowles), Stephanie (Dr. Angeles & Emilie), or Aretha(for Dr. Russo). They will be happy to assist you ! Pre-Op Check List for Patients Jenna Smallwood 1990 [address]: Phone: Pre-Op Appt. With Surgeon: Date: Pre-Op Appt. W/Primary care doctor: Date: (patient to schedule) Pre-Op interview/Telephone Call Date: (anesthesia nurses call) Time: Date of Surgery: Date: Check In Time: Surgery Time: Post-Op Appointment w/ Surgeon: Date: Time: X-Rays: Special Instructions: Pre-Op Appointments (radiology, lab, etc) Patient Guidelines for Preparing for Surgery Prior to Surgery: Preoperative test ?? Follow your surgeon office's instructions for testing needed prior to surgery ?? History & Physical (your surgeon may perform or may have you schedule an appointment with you Primary Care Physician or other clinic) ?? The [facility] H[facility]P [facility] at [facility] is an additional resources to help you prepare for you upcoming surgery or procedure. The clinic offers pre-op physicals and testing (bloodwork, EKG's and X-ray) in conjunction with an anesthesia prescreen interview. Call the Walk-In care Center at [phone] to schedule an appointment. Clinic hours are Monday, Monday and , 1:00 pm to 5:00 pm. Appointments are booked for an hour, but may take longer depending on Your health and the booked wolfgang hour, but may take longer depending on your health and the amount of testing required. ?? Any testing deemed necessary by your surgeon ?? Electrocardiogram (EKG) ?? Lab work (blood and/or urine samples) ?? Radiological test (x-ray, MRI, etc.) ?? Cardiac testing/consultation Pre-op Evaluation (anesthesia prescreen interview) ?? Most often completed during a 20-30 minute phone interview with a registered Nurse from the Preoperative Services department. ?? Your surgeon's office should notify you of date and time of your phone interview. If you need toreschedule this appointment please call the Preoperative Services department at [phone] or toll-free at ?? Occasionally scheduled as an appointment at [facility] with an Anesthesiologist ?? Please have available for the interview; your health history including medication list, surgicalhistory and pacemaker device information (if applicable) Preparing for Surgery ?? Notify the Preoperative services department (and your surgeon's office) of any changes in your health: ?? You become ill ?? You develop a blemish, rash, cut/scrape around your operative area ?? You are prescribed any new medication ?? Drink extra fluids 2 days prior to surgery ?? arrange for a responsible adult to transport You home after surgery. Even if you are using public transportation(taxi,bus), you must have an adult with you, who is responsible for your care. ?? Single patient under the age of 18 MUST have a parent/legal guardian in the hospital at ALL times on the day of surgery, from the time of admission until discharge either to home or to an inpatient unit. ?? The Pre-registration department may call you prior to the day of your surgery. They will confirmyour insurance and demographic information. Fasting Prior to Surgery ?? Follow the Fasting (eating and drinking) instructions given to you by your surgeon's office. General guidelines are listed below, but PLEASE NOTE - FOLLOW THE INSTRUCTIONS GIVEN TO YOU BY YOUR SURGEON Dr Dorsey ?? General guidelines: ?? Have no solid food or liquids containing fats, including milk, after midnight before your procedure. ?? If you are his second or third case of the day you may have fat free liquids (clear liquids) until 4 hours before the scheduled time of your procedure. Fat free clear liquids include water, fruit juices with out pulp, carbonated beverages, jell-O, black or sweetened coffee and tea, and fat free broth. If you don't stop drinking 4 hours prior to surgery, your surgery may be cancelled. ?? Take your medications as directed with small sips of water at any time prior to your procedure. (if a medication must be taken with something other than fat free liquids or sips of water, please refer to the Preoperative Evaluations Department at for guidance.) ?? Children under 1 year of age may have breat milk up to 4 hours and formula up to 6 hours before their procedure. For water or any clear liquids: stop 4 hours before surgery. Day of Surgery Preparation on the Day of Surgery ?? Shower/bathe the night before surgery and the morning of surgery with an antibacterial soap. Please shampoo during one of those times. ?? Follow the instructions you were given about your medications. Bring inhalers and nebulizer's with you to the hospital. ?? Wear comfortable, loose fitting clothing such as sweat suits, easy button shirts or blouses. ?? Do not wear makeup or nail cymro. Do not use alcohol based hair products. ?? Remove all jewelry (including rings) and/ or body piercing's. ?? Bring an eyeglasses case or contact lens case if you wear corrective lenses. ?? Leave valuables, jewelry and money at home (excpet what may be needed if you have insurance co-pay). ?? Bring your health insurance information, your hospital card and payment for your co-pay or deductible charges that may be due on admission. These items may be needed when you check in at the Registration department. Arriving for your surgery/procedure ?? Arrive at [facility] 11-2 hours prior to the surgery start time. This will allow is adequate time to prepare you for surgery. [facility]: ?? Park in the underground parking garage (follow signs). ?? Check in at the Registration area, centrally located in the Main [place] on level 3. ?? Once registered, you will be directed to the Surgical Freight Receiver Area. [facility]: ?? Park in designated patient parking lot. ?? Enter through the main entrance, at the side of the hospital, underneath the overhang. ?? Proceed straight ahead to the Registration area. Surgical Admissions Area ?? Up to two family members are able to accompany you to Surgical Admissions. ?? You will change into a hospital [facility] (children). Your current health status will be evaluated and an IV (intravenous will be started). If an IV is needed for a child, it will typically be started in the Operating Room after the child is asleep. ?? You will meet one of the anesthesia staff who will be caring for you during your surgery. They will go over your health history and finalize your anesthetic plan of care. ?? A designated family waiting area at each [place] is staffed by a guest relations receptionist who will take your family's name. Your surgeon will speak to them after your surgery. Your Recovery Stay after Surgery ?? Outpatient Surgery ?? You will be transferred from the Operating Room (OR) to the Post Anesthesia Care Unit (PACU). When having outpatient surgery, most often you will be able to go home between 1-4 hours after surgery. Total recovery time varies based on the type of procedure. If you require extended recovery time, you can expect to be moved to the Post Procedure Recovery Unit (PPR) until your physician and nurse sy henson determined that it is safe for you to go home. ?? If your physician determines that your require additional observation or a longer time to recover, you will be admitted and moved to an inpatient unit. ?? While in PACU after and outpatient surgery, family visits are limited to one family member, family international representative, for a maximum or 10 minutes during the patient's stay. This individual can thenreport back to the rest of the family members. Your cooperation is appreciated in making other arrangement for children under the age of 12. Parents of pediatric patients may stay with their child. If you are transferred to the PPR unit, your family will be able to join you in this area. Your Recovery Stay after Surgery ?? Inpatient Surgery ?? If you are being admitted to the hospital after your surgery, you can expect to stay in PACU for1-2 hours and then be transferred to a hospital room. ?? Your surgical team and/or nurse will go over the written post-operative instructions specific lupilloou and your surgery. ?? All patients must be accompanied by a responsible adult when leaving the hospital after anesthesia or sedation. For the first 24 hour period after anesthesia/sedation, you should NOT make important decisions, drive, operate machinery or drink alcohol. We would suggest that you also have someone to stay with you the first night. ?? A recovery room nurse will attempt to contact you with a follow-up communication after your surgery. PREPARING FOR ANESTHESIA PLEASE PLACE INSTRUCTIONS ON THE FRONT OF YOUR REFRIDGERATOR THANK YOU FROM THE ANESTHESIA DEPARTMENT In the Morning Follow These Dietary Restrictions: Up until 4 hours before the time of your scheduled procedure you may have water, black coffee or fat-free & protein free (clear) liquids (cranberry juice, apple juice, soda). At anytime, you may take medications as directed with sips of water. Children under 1 year may have breast milk up to 4 hours and formula up to 6 hours before their procedure. ADVANCE DIRECTIVES Many people have asked us the meaning of the term Advance Directive. It means telling your medical team ahead of time what you would, or would not, not done if you were unable to speak for yourselfin an emergency situation. This could happen if you were unconscious, physically unable to talk, ormentally unable to make decisions for yourself. A Living Will is one kind of advance directive. A Living Will usually concerns what you would want to be done if there were little hope of recovery. For example, would you want artificial means to beused to support your breathing, circulation, liver, kidneys, or feeding? Living Wilson sometimes contain other instructions, such as organ donation information. A Durable Power of Manager Work means that you can legally choose someone else who will speak for you and make decisions for you if you are unable to do so yourself. You, yourself, can write out the specific instructions that they will follow. You do not need to have an Advance Directive. However, if you do have one, you should tell us aboutit. If you do not have an Advance Directive, but would like more information about them, including Living Wilson, please ask for an information booklet about them at Direct Care Provider. PLEASE DISCONTINUE THESE PRODUCTS 7-10 DAYS PRIOR TO YOUR SURGERY Amelie Roxanne Measurin Anacin Midol Apc tablets Momentum Muscular Apc with codeine Backache formula Anacin maximum strength Arthritis pain formula Norgesic Ascodenn-30 Norgesic forte ASPIRIN (any form) Rifle aspirin Aspergum Pabirin Huey aspirin (any kind) Panalgesic BC powders Percodan Buff a comp tablets Buffadyne Quiet world analgesic Butabital Roaasisal Cama inlay tablets Celebrex SK-65 compound Cetased improved Sine aid Cheracol capsules Sine off Congespirin Stenden Fidelity Stero Darvon with aspirin Corididin D Decongestant Supac Diclofenac Synalgos Darvon compound-65 Dristan decongestant Triaminicin Ecotrin Vanquich Emprazil Verin v Empirin (plain or w/ codeine) Vioxx Emprazil Equagesic Aspirin Like Medications Etodolac Excedrin Aleve Extra strength bufferin Advil (Ibuprofen) Anaprox Fiorinal Ansaid 4-way cold tablets Burazolidin Clinoril Gemnisyn Daypro Goody's headache power Dolobid Feldene Anti coagulation Drugs Indocin Ketorolac Coumadin-7 days prior to surgery Meclomen Plavix-14 days prior to surgery Mobic Heparin- 7 days prior to surgery Motrin Nalfon Naprosyn (Naproxin Sodium) Nupin Orudis (Ketaprofen) Persantin Ponstel Relafen (Nabumetone) Rufen Sulindac Tolectin Voltaren IF YOU ARE ON HERBAL SUPPLEMENTS PLEASE DISCUSS WITH YOUR MEDICAL DOCTOR. WE RECOMMEND YOU DISCONTINUE ALL HERBAL SUPPLEMENTS, VIT. E, FISH OIL AND GARLIC 7 DAYS PRIOR TO PROCEDURE. POST- OPERATIVE INSTRUCTIONS AFTER CERVICAL FUSION 1. Please call if you are unable to tolerate your medications or if they do not adequately manage your symptoms. 2. Avoid using your hands and arms above shoulder height or holding your head and neck in one position for prolonged periods of time such as hours on the computer. 3. Avoid housework or yard work. You may cook but limit your lifting to 10 pounds. Do not vacuum orsweep. Avoid loading or lifting laundry, unless one article at a time. 4. Please avoid car rides unless absolutely necessary for the first three weeks. You may not drive until seen in follow-up with your surgeon. Call our office within one week of discharge at or for an appointmentor if any problems such as signs of infection or above symptoms. Narcotic consent obtained documented in this encounter Progress Notes * Inpatient, Physician - 12/07/2010 1617 EDT * Ye Dorsey - 10/19/2010 1441 EST This office note has been dictated. documented in this encounter Miscellaneous Notes * Scanned Note-Null - Inpatient, Physician - 12/08/2010 0858 EDT * Scanned Note-Null - Inpatient, Physician - 12/07/2010 1519 EDT documented in this encounter Plan of Treatment Upcoming Encounters Date Type Department Care Team (Late st Contact Info) Description 07/02/2024 11:[address] [facility] Neurology - [address] [place] [address] [place], [place] [id number] Maribel Giraldo MD [address] [place] [address], [address] [place] [id number] documented as of this encounter Visit Diagnoses Diagnosis Chiari malformation- Primary Spina bifida with hydrocephalus, unspecified region * Evaluation - Ye Dorsey - 11/04/2010 3190 EST DIVISION OF NEUROSURGERY NEW PATIENT EVALUATION - 10/19/2010 Pablo Solorio MD [address] [place] [id number] Solorio: Jenna Smallwood was here for preoperative preparole counseling aide. She did undergo a cervical spine MRI and there is noevidence for syringomyelia. It continues to show evidence for a type 1 Chiari malformation. Ms Smallwood's symptoms have only worsened to some degree. She continues to have occipital headaches, but now she clarifies things a bit more in that they get worse when she is sneezing and coughing during a cold or other viral illness. A typical sneeze will not cause an increase in her pain, but significant coughing and sneezing as experienced during viral illnesses does seem to exacerbate the pain and it continues to emanate from the suboccipital region. I think it is reasonable to proceed with a suboccipital decompression. Unfortunately, there is no diagnostic maneuver to prove that this is the source of her pain but the risk of the procedure itselfis relatively low and I think if she has failed all other conservative options, that this would be a reasonable next step. She would like to proceed. I have discussed the risks with her in detail andthese will be outlined in my operative note. I appreciate the opportunity to see your patients and certainly, if you have any questions, please do not hesitate to contact me. Sincerely, Electronically Signed by Ye Dorsey MD 11/04/2010 13:37 Ye Dorsey MD Manager Real Estate [facility] Division of Neurological Surgery - Ye Dorsey MD - Job ID: SM Doc ID: [id number] Ext Doc ID: [id number] cc: Pablo Solorio MD documented in this encounter Discontinued Medications Medication Sig Discontinue Reason Start Date End Da te nortriptyline (PAMELOR) 50 mg capsule Take 50 mg by mouth at bedtime. Error 10/19/2010 documented as of this encounter Care Teams Vfx Artist Relationship Specialty Start Date End Date Pablo Solorio MD PCP - General 02/13/09 12/23/22 documented as of this encounter
--- OUTSIDE RECORDS SUMMARY | 2024-06-11 22:31 | XMS_ITS | Encounter Summary ---
Author Organization [facility] Address [address] [place] [address] Care Team Providers Care Gum Rolling Machine Tender Name Role Phone Pablo Solorio MD Primary Care Provider Meka harrington Reason for Visit * Reason Comments New Patient Visit chiari malformation Encounter Details Date Type Department Care Team (Latest Contact Info) Description 09/15/2010 8:30 EST Office Visit [facility] Neurosurgery - [address] [place] [address], [place] [address] Ye Dorsey MD [address] [place], [place] [id number] Chiari malformation type I (CMS-HCC) (Primary Dx) Social History Tobacco Use Types Packs/Day Years Used Date Smoking Tobacco: Never Assessed Sex and Gender Information Value Date Recorded Sex Assigned at Not on file Gender Identity Not on file Sexual Orientation Not on file documented as of this encounter Last Filed Vital Signs Vital Sign Reading Time Taken Comments Blood Pressure 102/82 09/15/2010 0858 EST Pulse 80 09/15/2010 0858 EST Temperature - - Respiratory Rate 18 09/15/2010 0858 EST Oxygen Saturation - - Inhaled Oxygen Concentration - - Weight - - Height - - Body Mass Index - - documented in this encounter Progress Notes * Ye Dorsey - 09/15/2010 0935 EST This office note has been dictated. documented in this encounter Plan of Treatment Upcoming Encounters Date Type Department Care Team (Late st Contact Info) Description 07/02/2024 11:15 EDT Office Visit [facility] Neurology - [address] [place] [address] [place], [place] [id number] Maribel Giraldo MD [address] [place] [address], [address] [place] [phone] documented as of this encounter Procedures Procedure Name Priority Date/Time Associated Diagnosis Comments MR CERVICAL SPINE WO CONTRAST 10/10/2010 12:26 EST documented in this encounter Results * MR CERVICAL SPINE WO CONTRAST (10/10/2010 12:26 EST) Anatomical Region Laterality Modality Other 10/10/2010 12:2 6 EST 10/10/2010 14:15 EST Narrative 10/10/2010 14:15 EST MR CERVICAL SPINE WO/CONTRAST ??Oct 10, 2010 12:27:05 PM Impression: 1. 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 ??r/o syrinx Technique: MRI of the cervical spine was performed with sagittal T1, sagittal T2, axial T2, right and left sagittal T2 oblique sequences Comparison: None Findings: The cerebellar tonsils are peg shaped and extend about 8 mm below Moi's line. The findings indicate Chiari one malformation. Syringohydromyelia is not present in ?? the cervical cord. The vertebral marrow and the cord signal are normal. The height of the disc spaces are well-preserved. There is no disc herniation. There is no spinal stenosis. Procedure Note 10/10/2010 MR CERVICAL SPINE WO/CONTRAST Oct 10, 2010 12:27:05 PM Impression: 1. 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 r/o syrinx Technique: MRI of the cervical spine was performed with sagittal T1, sagittal T2, axial T2, right and left sagittal T2 oblique sequences Comparison: None Findings: The cerebellar tonsils are peg shaped and extend about 8 mm below Moi's line. The findings indicate Chiari one malformation. Syringohydromyelia is not present in the cervical cord. The vertebral marrow and the cord signal are normal. The height of the disc spaces are well-preserved. There is no disc herniation. There is no spinal stenosis. Ye Dorsey MD IMG MRI ORDERABLES documented in this encounter Visit Diagnoses Diagnosis Chiari malformation type I (HCC-CMS)- Primary Compression of brain * Evaluation - Ye Dorsey - 09/19/2010 1311 EST DIVISION OF NEUROSURGERY NEW PATIENT EVALUATION - 09/15/[address] [facility] Neurology Services [address] [place] [address], [address] [place] [address] Dunlap: Thank you for asking me to see Jenna Smallwood in consultation for a Chiari malformation. Ms. Smallwood is 20 years of age. I have received all of your notes and they outline her history quite well. At about the age of 9, she began to experience occipital headaches. These have persisted eversince and have not been well treated with medication over the years. She describes the headaches asa dull aching pain that always begins in the occiput and extends to her forehead. The headaches arepresent at all times, for the most part, but she does have acute exacerbations. She always feels a dull ache. She denies any change in her symptoms with coughing, sneezing or other Valsalva type maneuvers. She denies any significant numbness or tingling in her arms or legs. She feels that her balance and fine motor skills are all intact. Ms Smallwood is otherwise quite healthy except for some asthma. She has not had any significant surgeryother than tonsils and wisdom teeth. Her current medications are Axert one tablet as needed, topiramate 200 mg at bedtime and Nortriptyline 50 mg at bedtime. She has an allergy to aspirin. Family history and review of systems are otherwise unremarkable. 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 She does not smoke, drinks socially and lives with her younger sister and her 2-year-old daughter. On exam, she is bright, awake and alert and presents a very clear and straightforward history without embellishment. Her blood pressure is 102/82, pulse of 80, respirations 18. Her pupils are equal and reactive. Extraocular movements are intact. Her face is symmetric and sensation is intact. Palate raises symmetrically and her tongue protrudes in the midline. Strength, bulk and tone is normal in both upper and lower extremities. Reflexes are depressed throughout. There were no pathologic reflexes. Rapid repetitive and alternating movements are intact. She has no dysmetria. Her gait is normal. I have reviewed her MRI of the brain. She does have a Chiari type 1 malformation. I spent some time with Ms. Smallwood describing Chiari malformations and their potential treatment. Themain question is always whether the finding on the MRI is causing her symptoms. I have certainly seen cases of Chiari malformation with this degree of tonsil herniation in patients without significant symptoms and vice versa, i.e., patients with minimal tonsil herniations and significant symptoms. Her symptoms are not classic, but they do originate in this region and I think for this reason, given her failure of all medical therapy, surgical consideration is warranted. I have ordered an MRI of her cervical spine in the meantime to rule out a syrinx and will see her back for preoperative assistant counsel at that time. She understands the risks involved which I explained in detail and will be outlined in my operativenote. She understands specifically that this might not work to relieve these symptoms. Thank you for involving me in this nice lady's care. I will keep you apprised. Sincerely, Electronically Signed by Ye Dorsey MD 09/19/2010 13:11 Ye Dorsey MD Project Control Analyst [facility] Medicine Division of Neurological Surgery - Ye Dorsey MD - AN Job ID: SM Doc ID: [id number] Ext Doc ID: [id number] cc: Josiah Dunlap MD documented in this encounter Historical Medications * This list may reflect changes made after this encounter. Medication Sig Dispensed Refills Start Date End Date nortriptyline (PAMELOR) 50 mg capsule Take 50 mg by mouth at bedtime. 10/19/2010 topiramate (TOPAMAX) 200 mg tablet Take 200 mg by mouth at bedtime. 09/15/2010 12/27/2010 ALMOTRIPTAN MALATE (AXERT ORAL) Take 12.5 mg by mouth as needed. 09/15/2010 12/27/2010 added in this encounter Care Teams Gum Rolling Machine Tender Relationship Specialty Start Date End Date Pablo Solorio MD PCP - General 02/13/09 12/23/22 documented as of this encounter
--- OUTSIDE RECORDS SUMMARY | 2024-06-11 22:31 | XMS_ITS | Encounter Summary ---
[place] [address] Care Team Providers Care Armor Officer Name Role Phone Osmin Mackenzie MD, Pablo Primary Care Provider [phone] Encounter Details Date Type Department Care Team (Latest Contact Info) Description 05/25/2023 Travel Social History Tobacco Use Types Packs/Day Years Used Date Smoking Tobacco: Never Assessed Sex and Gender Information Value Date Recorded Sex Assigned at Not on file Gender Identity Not on file Sexual Orientation Not on file documented as of this encounter Plan of Treatment Not on file documented as of this encounter Visit Diagnoses Not on filedocumented in this encounter Care Teams Armor Officer Relationship Specialty Start Date End Date Pablo Solorio [place] [address] PCP - General 08/17/10 documented as of this encounter
== END 2024-06-11 22:28 | disposition home or self-care (01) ==
LOC: NCHCN 22:27
PROVIDERS: Visit Provider Nurse Practitioner Family
DX: K21.9 Gastro-esophageal reflux disease without esophagitis (principal); R53.83 Other fatigue
CPT/HCPCS: 80053; 82306; 82607; 83036; 83540; 83550; 84443; 85025

== ENCOUNTER 2024-10-24 16:47 | Outpatient (REF) | payer MEDICAID, SELFPAY ==
[2024-10-24 19:19] LABS: Abs Immature Grans 0.01 10^3/uL (0.0-0.06); Absolute Basophil Count 0.02 10^3/uL (0.0-0.2); Absolute Eosinophil Count 0.07 10^3/uL (0.0-0.7); Absolute Lymphocyte Count 1.81 10^3/uL (1.2-3.4); Absolute Monocyte Count 0.43 10^3/uL (0.1-0.8); Absolute Neutrophil Count 4.23 10^3/uL (1.2-6.7); Basophils % 0.3 %; Eosinophils % 1.1 %; HCT 43.3 % (36.0-46.0); HGB 14.6 g/dL (11.2-15.7); Immature Grans % 0.2 %; Lymphocytes % 27.5 %; MCH 30.3 pg (27.0-33.0); MCHC 33.7 % (32.0-36.0); MCV 90 fL (80-95); MPV 10.3 fL (8.0-11.0); Monocytes % 6.5 %; Neutrophils % 64.4 %; Platelet Count 353 10^3/uL (130-400); RBC 4.82 10^6/uL (3.93-5.22); RDW 12.3 % (11.7-14.6); RDW-SD 40.9 fL; WBC 6.57 10^3/uL (4.4-10.8)
[2024-10-24 19:46] LABS: Iron 119 ug/dL (50-170)
[2024-10-24 19:56] LABS: Ferritin 54 ng/mL (8-252); Vitamin D 25 Total 31.8 ng/mL (30-100)
== END 2024-10-24 16:48 | disposition home or self-care (01) ==
LOC: NCHCN 16:47
PROVIDERS: Visit Provider Nurse Practitioner Family
DX: E55.9 Vitamin D deficiency, unspecified (principal); E61.1 Iron deficiency
CPT/HCPCS: 82306; 82728; 83540; 85025